=== PATIENT | female | born 1945 | race African-American/Black ===

== ENCOUNTER 2016-06-10 18:07 | Inpatient (IN) | payer BC, MEDICAID ==
[~2016-06-10] VITALS: Ht 167.6 cm; Wt 144.2 kg
[2016-06-10] VITALS (9 sets, daily range): BP systolic 106–181; BP diastolic 60–105
[~2016-06-10 18:07] MED LIST: ALLO300T PO; AZIT250T PO; FLUT16SP NS; FURO40TA4 PO; HYDR-971 PO; METO10TA81 PO; MULT1TAB52 PO; PROAIR HFA8.5 GM INH; VALS1TAB3 PO
[2016-06-10] MEDS ORDERED: HYDROmorphone 2 MG/ML VIAL IV PRN (18:45)
[2016-06-10] MEDS ORDERED: ONDANSETRON PF 4 MG/2 ML VIAL. IV ONE (18:45)
[2016-06-10] MEDS ORDERED: IV NORMAL SALINE 500ML BAG 500 ML IV ONE (18:45)
[2016-06-10] MEDS: DILTIAZEM 125 MG in IV DEXTROSE 5% 100 ML IV PRN (19:06)
--- NOTE | 2016-06-10 19:06 | PHYS DOC ---
Past Medical History Past Medical History: Asthma, COPD, Diabetes-Type II, Hypertension, Pancreatitis, UTI Additional Past Medical Histor: Gout Past Surgical History: Gastric Bypass, Hysterectomy Additional Past Surgical Histo: Gastric bypass Alcohol Use: None Drug Use: None Adult General Chief Complaint Chief Complaint: ABDOMINAL PAIN HPI HPI 71-year-old female presenting to the emergency department with abdominal pain in the epigastrium that is sharp and associated with watery diarrhea. She denies blood in her stool. It is moderate nonradiating intermittent and without alleviating factors. She has a history of COPD, hypertension, diabetes, pancreatitis and gout. Review of systems is negative for fevers chills. She does feel palpitations and was noted to be tachycardic on triage. Positive for watery stools. All other review of systems is negative unless otherwise noted in history of present illness. Review of Systems Review of Systems SEE ABOVE. Current Medications Current Medications Current Medications Medications (Trade) Dose Ordered Sig/Helen Start Time Stop Time Status Last Admin Dose Admin Diltiazem HCl 20 mg 20 mg 1X ONCE 06/10/16 19:15 06/10/16 19:16 DC 06/10/16 19:02 20 MG Diltiazem HCl/ Dextrose (Cardizem) 125 ml @ 0 mls/hr CONT PRN 06/10/16 18:45 06/10/16 19:06 5 MLS/HR Hydromorphone HCl (Dilaudid) 0.5 mg PRN Q1HR PRN 06/10/16 18:45 06/10/16 19:00 0.5 MG Ondansetron HCl (Zofran) 4 mg 1X ONCE 06/10/16 18:45 06/10/16 18:46 DC 06/10/16 18:57 4 MG Sodium Chloride (Iv Sodium Chloride 0.9% 500ml Bag) 500 ml @ 500 mls/hr 1X ONCE 06/10/16 18:45 06/10/16 19:44 DC 06/10/16 19:10 500 MLS/HR Allergies Allergies Allergies Coded Allergies Type Severity Reaction Last Updated Verified No Known Drug Allergies 02/13/14 No Physical Exam Physical Exam Constitutional: Well developed, well nourished, appears to be in mild amount of pain, non-toxic appearance. obese. HENT: Normocephalic, atraumatic, bilateral external ears normal, oropharynx moist, no oral exudates, nose normal. [] Eyes: PERRLA, EOMI, conjunctiva normal, no discharge. [] Neck: Normal range of motion, no tenderness, supple, no stridor. Cardiovascular:Heart rate regular rhythm, no murmur [] Lungs & Thorax: Bilateral breath sounds clear to auscultation [] Abdomen: Soft nontender abdomen without rebound tenderness or guarding present. Negative McBurneys point. Negative Foster sign. No ecchymosis present. Skin: Warm, dry, no erythema, no rash. [] Back: No tenderness, no CVA tenderness. Extremities: No tenderness, no cyanosis, no clubbing, ROM intact, no edema. Neurologic: Alert and oriented X 3, normal motor function, normal sensory function, no focal deficits noted. [] Psychologic: Affect normal, judgement normal, mood normal. Current Patient Data Vital Signs Vital Signs Date Time Temp Pulse Resp B/P Pulse Ox O2 Delivery O2 Flow Rate FiO2 06/10/16 19:02 145 157/88 06/10/16 19:00 20 87 Room Air 06/10/16 18:11 98.1 98.1 Lab Values Laboratory Tests Test 06/10/16 18:44 06/10/16 19:30 White Blood Count 8.6x10^3/uL (4.0-11.0) Red Blood Count 4.03x10^6/uL (3.50-5.40) Hemoglobin 11.5g/dL (12.0-15.5) L Hematocrit 35.8% (36.0-47.0) L Mean Corpuscular Volume 89fL (79-100) Mean Corpuscular Hemoglobin 29pg (25-35) Mean Corpuscular Hemoglobin Concent 32g/dL (31-37) Red Cell Distribution Width 15.6% (11.5-14.5) H Platelet Count 253x10^3/uL (140-400) Neutrophils (%) (Auto) 68% (31-73) Lymphocytes (%) (Auto) 22% (24-48) L Monocytes (%) (Auto) 9% (0-9) Eosinophils (%) (Auto) 1% (0-3) Basophils (%) (Auto) 0% (0-3) Neutrophils # (Auto) 5.9x10^3uL (1.8-7.7) Lymphocytes # (Auto) 1.9x10^3/uL (1.0-4.8) Monocytes # (Auto) 0.8x10^3/uL (0.0-1.1) Eosinophils # (Auto) 0.1x10^3/uL (0.0-0.7) Basophils # (Auto) 0.0x10^3/uL (0.0-0.2) Sodium Level 146mmol/L (136-145) H Potassium Level 4.0mmol/L (3.5-5.1) Chloride Level 107mmol/L (98-107) Carbon Dioxide Level 29mmol/L (21-32) Anion Gap 10 (6-14) Blood Urea Nitrogen 40mg/dL (7-20) H Creatinine 2.7mg/dL (0.6-1.0) H Estimated GFR (Cockcroft-Gault) 21.0 Glucose Level 114mg/dL (70-99) H Lactic Acid Level 0.9mmol/L (0.4-2.0) Calcium Level 8.8mg/dL (8.5-10.1) Total Bilirubin 0.6mg/dL (0.2-1.0) Direct Bilirubin 0.1mg/dL (0.0-0.2) Aspartate Amino Transferase (AST) 15U/L (15-37) Alanine Aminotransferase (ALT) 13U/L (14-59) L Alkaline Phosphatase 71U/L (46-116) Troponin I Quantitative < 0.017ng/mL (0.000-0.055) WM-Xoi-M-Type Natriuretic Peptide 5901pg/mL (0-124) H Total Protein 7.2g/dL (6.4-8.2) Albumin 2.4g/dL (3.4-5.0) L Lipase 408U/L (73-393) H Urine Collection Type U cath Urine Color Yellow Urine Clarity Cloudy Urine pH 5.5 Urine Specific Lawson 1.015 Urine Protein >=300mg/dL (NEG-TRACE) Urine Glucose (UA) 100mg/dL (NEG) Urine Ketones (Stick) Negativemg/dL (NEG) Urine Blood Small (NEG) Urine Nitrite Negative (NEG) Urine Bilirubin Negative (NEG) Urine Urobilinogen Dipstick 0.2mg/dL (0.2 mg/dL) Urine Leukocyte Esterase Negative (NEG) Urine RBC 0/HPF (0-2) Urine WBC 0/HPF (0-4) Urine Amorphous Sediment Present/HPF Urine Bacteria Few/HPF (0-FEW) Urine Hyaline Casts Moderate/HPF Urine Granular Casts Few/HPF Laboratory Tests 06/10/16 18:44 Laboratory Tests 06/10/16 18:44 EKG EKG [] EKG shows tachycardic rate. Rhythm possibly a flutter versus sinus tachycardia. ST segments congruent. Left axis deviation present. Interpreted by myself. Radiology/Procedures Radiology/Procedures [] Course & Med Decision Making Course & Med Decision Making Pertinent Labs and Imaging studies reviewed. (See chart for details) [] 71-year-old female with history of COPD and hypertension presenting to the emergency department today with abdominal pain. Triage vital signs showed the patient to be tachycardic. EKG concerning for possible atrial flutter. Diltiazem bolus and drip given. Blood work obtained. IV access obtained. CT abdomen and pelvis obtained. On reevaluation, the patient's pain had improved. Her heart rate had remained at 140 approximately. She had received the bolus of diltiazem and currently is going up on her diltiazem drip. CT the abdomen and pelvis showed hernia with obstruction. I placed a consult for her surgeon Dr. Villavicencio and our inspector integrated circuits Dr. Deluna. The patient was then admitted to the [facility] our hospital for further evaluation workup and care. Dragon Disclaimer Dragon Disclaimer This electronic medical record was generated, in whole or in part, using a voice recognition dictation system. Departure Departure Impression: Primary Impression: Abdominal pain Additional Impression: Atrial flutter Disposition: ADMITTED INPATIENT Condition: IMPROVED Referrals: CURTIS MARCELINO MD (PCP) Problem Qualifiers Primary Impression: Abdominal pain Abdominal location: unspecified location Qualified Code: R10.9 - Unspecified abdominal pain CURT DAVENPORT MD Jun 10, 2016 19:05
[2016-06-10] MEDS ORDERED: DILTIAZEM IV PUSH 25 MG/5 ML VIAL. IVP ONE (19:15)
[2016-06-10 19:26] LABS: BASO % 0 % (0-3); EOS % 1 % (0-3); HEMATOCRIT 35.8 % (36.0-47.0); HEMOGLOBIN 11.5 g/dL (12.0-15.5); LYMPH # 1.9 x10^3/uL (1.0-4.8); LYMPH % 22 % (24-48); MEAN CORPUSCULAR HEMOGLOBIN 29 pg (25-35); MEAN CORPUSCULAR HGB CONC 32 g/dL (31-37); MEAN CORPUSCULAR VOLUME 89 fL (79-100); MONO % 9 % (0-9); NEUT % 68 % (31-73); PLATELET COUNT 253 x10^3/uL (140-400); RED BLOOD COUNT 4.03 x10^6/uL (3.50-5.40); RED CELL DISTRIBUTION WIDTH 15.6 % (11.5-14.5); WHITE BLOOD COUNT 8.6 x10^3/uL (4.0-11.0)
[2016-06-10 19:39] LABS: CALCIUM 8.8 mg/dL (8.5-10.1); CREATININE 2.7 mg/dL (0.6-1.0)
[2016-06-10 19:42] LABS: BILIRUBIN,URINE NEGATIVE (NEG); GLUCOSE,URINE 100 mg/dL (NEG); NITRITE,URINE NEGATIVE (NEG); PH,URINE 5.5; PROTEIN,URINE >=300 mg/dL (NEG-TRACE); UROBILINOGEN,URINE 0.2 mg/dL (0.2 mg/dL)
[2016-06-10 19:45] LABS: ALBUMIN 2.4 g/dL (3.4-5.0); DIRECT BILIRUBIN 0.1 mg/dL (0.0-0.2); TOTAL BILIRUBIN 0.6 mg/dL (0.2-1.0); TOTAL PROTEIN 7.2 g/dL (6.4-8.2)
[2016-06-10] MEDS ORDERED: ONDANSETRON PF 4 MG/2 ML VIAL. IV PRN (19:45)
[2016-06-10] MEDS ORDERED: MORPHINE SULFATE 2 MG/ML DISP.SYRIN. IV PRN (19:45)
--- NOTE | 2016-06-10 19:53 | ACF ---
Admission Forms Criteria ABDOMINAL PAIN Clinical Indications for Admission to Inpatient Care (Place 'X' for any and all applicable criteria): Admission is indicated for ANY ONE of the following(1)(2)(3)(4)(5): [X]I. Inpatient admission required rather than observation care (Also use Abdominal Pain: Observation Care, as appropriate) because of ANY ONE of the following: [X]a) Severe pain requiring acute inpatient management [ ]b) Identification of etiology/finding that requires inpatient care (eg, aortic dissection, free air) [ ]c) Absent bowel sounds with complete ileus(6) [ ]d) Suspected toxic megacolon [ ]e) Severe electrolyte abnormalities requiring inpatient care [ ]f) High fever or infection requiring inpatient admission as indicated by ANY ONE of following(7)(8): [ ] i) Appropriate outpatient or observational care antimicrobial treatment unavailable, not effective, or not feasible [ ] ii) Documented bacteremia [ ] iii) Temperature > 104.9 degrees F (oral) [ ] iv) T >103.1 F (oral) or < 96.8 F(rectal) that does not respond to all emergency treatment measures [ ]g) Signs of intestinal obstruction [B] [ ]h) Hemodynamic instability [ ]i) IV fluid to replace significant ongoing losses (greater than 3 L/m2 per day) (12)(13) [ ]j) Percutaneous or open drainage (eg, abscess, biliary tract ) procedures [ ]k) Parenteral nutrition regimen that must be implemented on inpatient basis [ ]l) Other condition,treatment or monitoring requiring inpatient admission. [ ]II. Peritoneal signs present [ ]III. Surgery needed that cannot be performed on an ambulatory basis. [ ]IV. Evaluation requires patient to not eat or drink for extended period ( eg, more than 24 hours). [ ]V. Contraindications and/or Inappropriate clinical situations for Observational Care in patients with abdominal pain, when ANY ONE of the following is required: [ ]a) Thorough evaluation is required to prevent catastrophic events due to delays in diagnosing (e.g.Mesenteric ischemia) 1,3 [ ]b) Patient with severe pathology or with chronic symptoms unlikely to improve in the ED stay (3) [ ]. General contraindications and/or Inappropriate clinical situations for Observational Care in patients with abdominal pain, when ANY ONE of the following is required: [ ]a) Prediction of prolongation of LOS based on ANY ONE of the following may be considered as a contraindication for observational care 2, 3, 4, 5, 6, 7, 8, 9, 10, 11 [ ]i) Age > 65 yrs. [ ]ii) Patient arriving by ambulance [ ]iii) Patient with high acuity [ ]iv) Patient requiring vital sign monitoring [ ]v) Patient on IV medication [ ]b) Systolic blood pressures 180mmHg 3,12 [ ]c) Patient with altered mental status including delirium and other alteration of consciousness, (3) [ ]d) Patient whose discharge disposition will be to a fdc home or rehabilitation home should not be managed in Emergency Department Observation Unit. CMS rule requires 3 days hospital stay before such placement.3,13 [ ]e) Patient with failure to thrive due to broad array of etiologies 3,16,17 [ ]f) Inability to ambulate 3,14 Extended stay beyond goal length of stay may be needed for(2)(3): [ ]a) Persistent abdominal pain with suspected intra-abdominal process [ ]b) Diagnosed condition requiring continued stay (e.g., pancreatitis, complicated diverticulitis) [ ]c) Surgery (e.g., colectomy) The original [facility] content created by [employer] has been revised. The portions of the content which have been revised are identified through the use of italic text or in bold, and [facility] has neither reviewed nor approved the modified material.All other unmodified content is copyright [employer]. Please see references footnoted in the original [facility] edition 2016 Admission Criteria Met?: Yes ALVARO GAONA Jun 10, 2016 19:53
[2016-06-10 20:01] LABS: BACTERIA,URINE FEW /HPF (0-FEW); RBC,URINE 0 /HPF (0-2); WBC,URINE 0 /HPF (0-4)
--- NOTE | 2016-06-10 20:34 | RAD ---
PROCEDURE Abdomen and pelvis CT without intravenous contrast HISTORY Pain, nausea, vomiting and diarrhea. TECHNIQUE Computed tomographic images the abdomen and pelvis were obtained without contrast. One or more of the following individualized dose reduction techniques were utilized for this examination: 1. Automated exposure control; 2. Adjustment of the mA and/or kV according to patient size; 3. Use of iterative reconstruction technique. COMPARISON 08/29/2015 FINDINGS Evaluation of the lower thorax demonstrates basilar atelectasis. There is cardiomegaly. No focal hepatic lesion is seen. The gallbladder, pancreas, spleen and adrenal glands are unremarkable. There are suspected subcentimeter cysts within the right kidney. There is no obstructive he obstructive uropathy. There is diastasis of the ventral abdominal wall musculature with a large hernia containing fat and loops of small bowel and a segment of transverse colon. There is stranding within the herniated fat which may be due to a component of incarceration. The herniated small bowel loops are also slightly dilated, suggesting a component of mechanical obstruction. There are decompressed loops of bowel distal to the hernia. There are findings consistent with partial bowel resection, with a surgical anastomosis within the herniated loops of bowel. The hernia sac measures 24 cm and the ventral abdominal wall defect measures 12.5 cm. There is colonic diverticulosis without diverticulitis. The bladder is unremarkable. No pathologically enlarged lymph node is seen. There are degenerative changes throughout the spine. There is grade 1 anterolisthesis of L4 on L5. There is soft tissue edema within the inferior ventral abdominal wall pannus. IMPRESSION 1. Large ventral abdominal wall hernia containing fat and multiple loops of small bowel and a segment of colon. The herniated loops of small bowel are distended, suggesting a component of mechanical obstruction. This is there is similar compared to the prior study. 2. Colonic diverticulosis. 3. Suspected small renal cysts, difficult to characterize in the absence of contrast. Electronically signed by: Fanny Bailey (Jun 10, 2016 20:32:09)
[2016-06-10] MEDS ORDERED: IV NORMAL SALINE 1000ML BAG 1,000 ML IV ONE (22:00)
--- NOTE | 2016-06-10 23:20 | RAD ---
KUB Indication: NG tube placement. Time of exam 11:06 p.m. A single view of the abdomen shows an NG tube passing below the diaphragm. The tip is directed towards the left in the gastric fundus. Impression: NG tube placement, as described. Electronically signed by: Mauricio Gross MD (Jun 10, 2016 23:19:30)
[2016-06-11] VITALS (21 sets, daily range): BP systolic 81–132; BP diastolic 38–82
--- NOTE | 2016-06-11 06:25 | EKG ---
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
--- NOTE | 2016-06-11 07:55 | RAD ---
Indication epigastric pain. A single view of the chest was obtained and is compared to an exam 09/01/2015. There is mild enlargement of the cardiac silhouette. There is no gross congestive heart failure. A focal infiltrate is not seen. Significant pleural fluid is not present and there is no pneumothorax. IMPRESSION: Mild enlargement of the cardiac silhouette. No focal process seen
--- NOTE | 2016-06-11 08:21 | PDOC ---
Provider Note Provider Note See admission H&P dictation #[id number] Impression: 1. Small bowel obstruction with possible incarceration with a ventral hernia: 2. A. fib/flutter with rapid ventricular response, now converted: 3. Diabetes mellitus type 2, diet controlled: 4. Hypertension: 5. Acute renal failure, vasomotor etiology, with history of chronic kidney disease stage III/IV with baseline CRE 1.9: 6. History of COPD: 7. Chronic lymphedema in the bilateral lower extremities: 8. Morbid obesity: 9. History of uterine cancer status post hysterectomy: 10. History of partial colon/small bowel? resection: 11. Mildly elevated lipase with a history of pancreatitis: CURTIS MARCELINO MD Jun 11, 2016 08:21
[2016-06-11] MEDS ORDERED: DEXTROSE 50% 25 GM / 50ML DISP.SYRIN. IV PRN (08:30)
[2016-06-11] MEDS ORDERED: ALBUTEROL SULFATE 2.5 MG/3 ML NEBU. NEB PRN (08:30)
[2016-06-11 08:31] LABS: BASO % 0 % (0-3); EOS % 2 % (0-3); HEMATOCRIT 29.8 % (36.0-47.0); HEMOGLOBIN 9.5 g/dL (12.0-15.5); LYMPH # 2.2 x10^3/uL (1.0-4.8); LYMPH % 25 % (24-48); MEAN CORPUSCULAR HEMOGLOBIN 29 pg (25-35); MEAN CORPUSCULAR HGB CONC 32 g/dL (31-37); MEAN CORPUSCULAR VOLUME 90 fL (79-100); MONO % 11 % (0-9); NEUT % 62 % (31-73); PLATELET COUNT 203 x10^3/uL (140-400); RED CELL DISTRIBUTION WIDTH 15.8 % (11.5-14.5); WHITE BLOOD COUNT 8.9 x10^3/uL (4.0-11.0)
--- NOTE | 2016-06-11 08:33 | RAD ---
Indication abdominal pain and distention. A single view of the chest as well as flat and upright films of the abdomen were obtained. Note is made of a CT examination yesterday. The heart and pulmonary vessels are unchanged relative to yesterday's study. Acute parenchymal infiltrate is not seen. Significant pleural fluid is not seen and there is no pneumothorax. A nasogastric tube has its tip in the fundus of the stomach. There is no gross free air. Gas is seen in a few loops of bowel but the abdomen is largely gasless. IMPRESSION: No acute finding in the chest. Nasogastric tube with its tip in the fundus of the stomach. The abdomen appears largely gasless
[2016-06-11 08:51] LABS: CALCIUM 8.2 mg/dL (8.5-10.1); CREATININE 3.1 mg/dL (0.6-1.0); GFR 17.9; POTASSIUM 4.1 mmol/L (3.5-5.1)
[2016-06-11] MEDS ORDERED: IV NORMAL SALINE 1000ML BAG 1,000 ML IV SCH (09:00)
[2016-06-11] MEDS: FLUTICASONE 50MCG/NASAL SPRAY 16GM BOTTLE. NS SCH (09:00)
--- NOTE | 2016-06-11 09:48 | PDOC2 ---
CHRISTOPHER SAUER HEALTH CARE ADMINISTRATOR 06/11/16 0948: CARDIAC CONSULT DATE OF CONSULT Date of Consult DATE: 06/11/16 TIME: 09:24 REASON FOR CONSULT Reason for Consult: atrial flutter with RVR REFERRING PHYSICIAN Referring Physician: Dr. Koko Hadley SOURCE Source: Chart review, Patient HISTORY OF PRESENT ILLNESS HISTORY OF PRESENT ILLNESS 71 year old female admitted through the ER with abdominal pain and found to have an obstruction with incarcerated ventral hernia on CT scan Also had c/o palpitations and EKG demonstrates atrial flutter with RVR. She was placed on a diltiazem gtt for rate control and subsequently converted to NSR ~ 0500 today. Serum K WNL. EKG as noted without acute changes and troponin level not consistent with AMI. No previous history of dysrhythmias. Reason for Visit: atrial flutter PAST MEDICAL HISTORY Cardiovascular: HTN Pulmonary: Asthma, COPD CENTRAL NERVOUS SYSTEM: Other (none) GI: Other (ventral hernia; pancreatitis) Heme/Onc: No pertinent hx Hepatobiliary: No pertinent hx Psych: No pertinent hx Musculoskeletal: Osteoarthritis Rheumatologic: Gout Infectious disease: No pertinent hx ENT: No pertinent hx Renal/: No pertinent hx, UTI Endocrine: Diabetes Dermatology: No pertinent hx PAST SURGICAL HISTORY Past Surgical History: Hysterectomy, Other (gastric bypass) FAMILY HISTORY Family History: Heart Disease SOCIAL HISTORY Smoke: No ALCOHOL: none Drugs: None CURRENT MEDICATIONS CURRENT MEDICATIONS Current Medications Medications (Trade) Dose Ordered Sig/Helen Route PRN Reason Start Time Stop Time Status Last Admin Dose Admin Sodium Chloride (Iv Sodium Chloride 0.9% 500ml Bag) 500 ml @ 500 mls/hr 1X ONCE IV 06/10/16 18:45 06/10/16 19:44 DC 06/10/16 19:10 Hydromorphone HCl (Dilaudid) 0.5 mg PRN Q1HR PRN IV SEVERE PAIN 06/10/16 18:45 06/10/16 19:00 Ondansetron HCl (Zofran) 4 mg 1X ONCE IV 06/10/16 18:45 06/10/16 18:46 DC 06/10/16 18:57 Diltiazem HCl 20 mg 20 mg 1X ONCE IVP 06/10/16 19:15 06/10/16 19:16 DC 06/10/16 19:02 Diltiazem HCl 125 mg/Dextrose 125 ml @ 0 mls/hr CONT PRN IV SEE I/O RECORD 06/10/16 18:45 06/10/16 19:06 Sodium Chloride 1,000 ml @ 125 mls/hr 1X ONCE IV 06/10/16 22:00 06/11/16 05:59 DC 06/10/16 22:21 Sodium Chloride (Iv Sodium Chloride 0.9% 1000ml Bag) 1,000 ml @ 75 mls/hr [id number] IV 06/11/16 09:00 06/11/16 08:40 Albuterol Sulfate (Ventolin Neb Soln) 2.5 mg PRN Q4HRS PRN NEB SHORTNESS OF BREATH 06/11/16 08:30 06/11/16 08:45 ALLERGIES ALLERGIES: Coded Allergies: No Known Drug Allergies (Unverified , 02/13/14) ROS General: YES: Chills PSYCHOLOGICAL ROS: No: Anxiety, Behavioral Disorder, Concentration difficultie , Decreased libido, Depression, Disorientation, Hallucinations, Hostility, Irritablity, Memory difficulties, Mood Swings, Obsessive thoughts, Other, Physical abuse, Sexual abuse, Sleep disturbances, Suicidal ideation Eyes: No Blurry vision, No Decreased vision, No Double vision, No Dry eyes, No Excessive tearing, No Eye Pain, No Itchy Eyes, No Loss of vision, No Other, No Photophobia, No Scotomata, No Uses contacts, No Uses glasses HEENT: No: Epistaxis, Heacaches, Hearing change, Nasal congestion, Nasal discharge, Oral lesions, Other, Sinus pain, Sneezing, Snoring, Sore Throat, Tinnitus, Vertigo, Visual Changes, Vocal changes ALLERGY AND IMMUNOLOGY: No: Hives, Insect Bite Sensitivity, Itchy/Watery Eyes, Nasal Congestion, Other, Post Nasal Drip, Seasonal Allergies Hematological and Lymphatic: No: Bleeding Problems, Blood Clots, Blood Transfusions, Brusing, Night Sweats, Other, Pallor, Swollen Lymph Nodes ENDOCRINE: No: Breast Changes, Galactorrhea, Hair Pattern Changes, Hot Flashes , Malaise/lethargy, Mood Swings, Other, Palpitations, Polydipsia/polyuria, Skin Changes, Temperature Intolerance, Unexpected Weight Changes Respiratory: YES: Shortness of breath Cardiovascular: yes Edema, yes Palpitations Gastrointestinal: Yes Abdominal Pain Genitourinary: No Discharge, No Dysuria, No Flank Pain, No Frequency, No Hematuria, No Incontinence, No Other, No Pain, No Retention, No Urgency Musculoskeletal: Yes Joint Stiffness Neurological: No Behavorial Changes, No Bowel/Bladder ControlChng, No Confusion , No Dizziness, No Gait Disturbance, No Headaches, No Impaired Coord/balance, No Memory Loss, No Numbness/Tingling, No Other, No Seizures, No Speech Problems , No Tremors, No Visual Changes, No Weakness Skin: No Acne, No Dry Skin, No Eczema, No Hair Changes, No Lumps, No Mole Changes, No Mottling, No Nail Changes, No Other, No Pruritus, No Rash, No Skin Lesion Changes PHYSICAL EXAM General: Alert, Oriented X3, Cooperative, No acute distress HEENT: Atraumatic, PERRLA Lungs: Clear to auscultation, Normal air movement Heart: Regular rate, Normal S1, No murmurs, Other (no carotid bruits) Abdomen: Soft, Other (NGT) Extremities: No edema, Normal pulses Skin: No rashes Neuro: Normal speech Psych/Mental Status: Mental status NL, Mood NL MUSCULOSKELETAL: Osteoarthritic changes both hands VITALS VITALS Vital Signs Date Time Temp Pulse Resp B/P Pulse Ox O2 Delivery O2 Flow Rate FiO2 06/11/16 08:45 95 Nasal Cannula 2.0 06/11/16 07:00 97.5 84 18 129/68 97.5 LABS Lab: Laboratory Tests Test 06/10/16 18:44 06/10/16 19:30 06/11/16 00:58 06/11/16 06:45 White Blood Count 8.6x10^3/uL (4.0-11.0) Red Blood Count 4.03x10^6/uL (3.50-5.40) Hemoglobin 11.5g/dL (12.0-15.5) Hematocrit 35.8% (36.0-47.0) Mean Corpuscular Volume 89fL (79-100) Mean Corpuscular Hemoglobin 29pg (25-35) Mean Corpuscular Hemoglobin Concent 32g/dL (31-37) Red Cell Distribution Width 15.6% (11.5-14.5) Platelet Count 253x10^3/uL (140-400) Neutrophils (%) (Auto) 68% (31-73) Lymphocytes (%) (Auto) 22% (24-48) Monocytes (%) (Auto) 9% (0-9) Eosinophils (%) (Auto) 1% (0-3) Basophils (%) (Auto) 0% (0-3) Neutrophils # (Auto) 5.9x10^3uL (1.8-7.7) Lymphocytes # (Auto) 1.9x10^3/uL (1.0-4.8) Monocytes # (Auto) 0.8x10^3/uL (0.0-1.1) Eosinophils # (Auto) 0.1x10^3/uL (0.0-0.7) Basophils # (Auto) 0.0x10^3/uL (0.0-0.2) Sodium Level 146mmol/L (136-145) Potassium Level 4.0mmol/L (3.5-5.1) Chloride Level 107mmol/L (98-107) Carbon Dioxide Level 29mmol/L (21-32) Anion Gap 10 (6-14) Blood Urea Nitrogen 40mg/dL (7-20) Creatinine 2.7mg/dL (0.6-1.0) Estimated GFR (Cockcroft-Gault) 21.0 Glucose Level 114mg/dL (70-99) Lactic Acid Level 0.9mmol/L (0.4-2.0) Calcium Level 8.8mg/dL (8.5-10.1) Total Bilirubin 0.6mg/dL (0.2-1.0) Direct Bilirubin 0.1mg/dL (0.0-0.2) Aspartate Amino Transf (AST/SGOT) 15U/L (15-37) Alanine Aminotransferase (ALT/SGPT) 13U/L (14-59) Alkaline Phosphatase 71U/L (46-116) Troponin I Quantitative < 0.017ng/mL (0.000-0.055) 0.023ng/mL (0.000-0.055) ED-Mhg-Q-Type Natriuretic Peptide 5901pg/mL (0-124) Total Protein 7.2g/dL (6.4-8.2) Albumin 2.4g/dL (3.4-5.0) Lipase 408U/L (73-393) Urine Collection Type U cath Urine Color Yellow Urine Clarity Cloudy Urine pH 5.5 Urine Specific [place] 1.015 Urine Protein >=300mg/dL (NEG-TRACE) Urine Glucose (UA) 100mg/dL (NEG) Urine Ketones (Stick) Negativemg/dL (NEG) Urine Blood Small (NEG) Urine Nitrite Negative (NEG) Urine Bilirubin Negative (NEG) Urine Urobilinogen Dipstick 0.2mg/dL (0.2 mg/dL) Urine Leukocyte Esterase Negative (NEG) Urine RBC 0/HPF (0-2) Urine WBC 0/HPF (0-4) Urine Amorphous Sediment Present/HPF Urine Bacteria Few/HPF (0-FEW) Urine Hyaline Casts Moderate/HPF Urine Granular Casts Few/HPF Glucose (Fingerstick) 78mg/dL (70-99) Test 06/11/16 08:00 White Blood Count 8.9x10^3/uL (4.0-11.0) Red Blood Count 3.30x10^6/uL (3.50-5.40) Hemoglobin 9.5g/dL (12.0-15.5) Hematocrit 29.8% (36.0-47.0) Mean Corpuscular Volume 90fL (79-100) Mean Corpuscular Hemoglobin 29pg (25-35) Mean Corpuscular Hemoglobin Concent 32g/dL (31-37) Red Cell Distribution Width 15.8% (11.5-14.5) Platelet Count 203x10^3/uL (140-400) Neutrophils (%) (Auto) 62% (31-73) Lymphocytes (%) (Auto) 25% (24-48) Monocytes (%) (Auto) 11% (0-9) Eosinophils (%) (Auto) 2% (0-3) Basophils (%) (Auto) 0% (0-3) Neutrophils # (Auto) 5.5x10^3uL (1.8-7.7) Lymphocytes # (Auto) 2.2x10^3/uL (1.0-4.8) Monocytes # (Auto) 0.9x10^3/uL (0.0-1.1) Eosinophils # (Auto) 0.2x10^3/uL (0.0-0.7) Basophils # (Auto) 0.0x10^3/uL (0.0-0.2) Sodium Level 147mmol/L (136-145) Potassium Level 4.1mmol/L (3.5-5.1) Chloride Level 110mmol/L (98-107) Carbon Dioxide Level 30mmol/L (21-32) Anion Gap 7 (6-14) Blood Urea Nitrogen 42mg/dL (7-20) Creatinine 3.1mg/dL (0.6-1.0) Estimated GFR (Cockcroft-Gault) 17.9 Glucose Level 90mg/dL (70-99) Calcium Level 8.2mg/dL (8.5-10.1) Troponin I Quantitative 0.026ng/mL (0.000-0.055) Lipase 100U/L (73-393) IMAGES IMAGES CXR: A single view of the chest was obtained and is compared to an exam 09/01/2015. There is mild enlargement of the cardiac silhouette. There is no gross congestive heart failure. A focal infiltrate is not seen. Significant pleural fluid is not present and there is no pneumothorax. IMPRESSION: Mild enlargement of the cardiac silhouette. No focal process seen EKG EKG atrial flutter, RVR; no acute changes ASSESSMENT/PLAN ASSESSMENT/PLAN 1. atrial flutter with RVR, presumed new onset rate controlled with IV diltiazem and converted to SR K WNL; check Mg and TSH echo to evaluate for valvular heart disease continue dilitazem gtt until pt tolerating p.o. hold OAC until decision re: need for surgery 2. ventral hernia with possible incarceration per surgery 3. HTN resume home meds when oral tolerated 4. obesity Problems: HOLLI MONROY MD 06/11/16 1750: CARDIAC CONSULT ALLERGIES ALLERGIES: Coded Allergies: No Known Drug Allergies (Unverified , 02/13/14) ASSESSMENT/PLAN ASSESSMENT/PLAN Pt. seen and examined. 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 71 y.o F presenting with GI issues. Also had transient afib with RVR Now in SR. Normal cardiac exam. labs/meds reviewed. Supportive care. Continue dilt gtt. No anticoagulation for now, unless she has recurrent afib. No significant valvular disease with normal LV function. Problems: CHRISTOPHER SAUER APRN Jun 11, 2016 09:48 HOLLI MONROY MD Jun 11, 2016 17:50
--- NOTE | 2016-06-11 09:54 | PDOC ---
SURGICAL PROGRESS NOTE Subjective Patient doing well without any abd pain and has had no pain meds for over 12 hours. Abd series this am negative and CT yesterday showed large ventral hernia but no real bowel obstruction. Lab OK Ng very uncomfortable. Will remove and keep NPO. Plan to start liquids in am and she understands that repair of hernia should be done. Would like to get bowel prep going etc. May not repair during this Hosp visit. afib converted. Will se what med team feels. Abd soft and no-tender as she has no pain or discomfort.. Vital Signs Vital Signs Date Time Temp Pulse Resp B/P Pulse Ox O2 Delivery O2 Flow Rate FiO2 06/11/16 08:45 95 Nasal Cannula 2.0 06/11/16 07:00 97.5 84 18 129/68 97.5 I&O Intake and Output 06/11/16 07:00 Intake Total 1542.59 ml Output Total 100 ml Balance 1442.59 ml Intake Oral 0 ml IV Total 1542.59 ml Output Urine Total 100 ml Labs Laboratory Tests Test 06/10/16 18:44 06/10/16 19:30 06/11/16 00:58 06/11/16 06:45 White Blood Count 8.6x10^3/uL (4.0-11.0) Red Blood Count 4.03x10^6/uL (3.50-5.40) Hemoglobin 11.5g/dL (12.0-15.5) Hematocrit 35.8% (36.0-47.0) Mean Corpuscular Volume 89fL (79-100) Mean Corpuscular Hemoglobin 29pg (25-35) Mean Corpuscular Hemoglobin Concent 32g/dL (31-37) Red Cell Distribution Width 15.6% (11.5-14.5) Platelet Count 253x10^3/uL (140-400) Neutrophils (%) (Auto) 68% (31-73) Lymphocytes (%) (Auto) 22% (24-48) Monocytes (%) (Auto) 9% (0-9) Eosinophils (%) (Auto) 1% (0-3) Basophils (%) (Auto) 0% (0-3) Neutrophils # (Auto) 5.9x10^3uL (1.8-7.7) Lymphocytes # (Auto) 1.9x10^3/uL (1.0-4.8) Monocytes # (Auto) 0.8x10^3/uL (0.0-1.1) Eosinophils # (Auto) 0.1x10^3/uL (0.0-0.7) Basophils # (Auto) 0.0x10^3/uL (0.0-0.2) Sodium Level 146mmol/L (136-145) Potassium Level 4.0mmol/L (3.5-5.1) Chloride Level 107mmol/L (98-107) Carbon Dioxide Level 29mmol/L (21-32) Anion Gap 10 (6-14) Blood Urea Nitrogen 40mg/dL (7-20) Creatinine 2.7mg/dL (0.6-1.0) Estimated GFR (Cockcroft-Gault) 21.0 Glucose Level 114mg/dL (70-99) Lactic Acid Level 0.9mmol/L (0.4-2.0) Calcium Level 8.8mg/dL (8.5-10.1) Total Bilirubin 0.6mg/dL (0.2-1.0) Direct Bilirubin 0.1mg/dL (0.0-0.2) Aspartate Amino Transf (AST/SGOT) 15U/L (15-37) Alanine Aminotransferase (ALT/SGPT) 13U/L (14-59) Alkaline Phosphatase 71U/L (46-116) Troponin I Quantitative < 0.017ng/mL (0.000-0.055) 0.023ng/mL (0.000-0.055) SJ-Nxe-M-Type Natriuretic Peptide 5901pg/mL (0-124) Total Protein 7.2g/dL (6.4-8.2) Albumin 2.4g/dL (3.4-5.0) Lipase 408U/L (73-393) Urine Collection Type U cath Urine Color Yellow Urine Clarity Cloudy Urine pH 5.5 Urine Specific [place] 1.015 Urine Protein >=300mg/dL (NEG-TRACE) Urine Glucose (UA) 100mg/dL (NEG) Urine Ketones (Stick) Negativemg/dL (NEG) Urine Blood Small (NEG) Urine Nitrite Negative (NEG) Urine Bilirubin Negative (NEG) Urine Urobilinogen Dipstick 0.2mg/dL (0.2 mg/dL) Urine Leukocyte Esterase Negative (NEG) Urine RBC 0/HPF (0-2) Urine WBC 0/HPF (0-4) Urine Amorphous Sediment Present/HPF Urine Bacteria Few/HPF (0-FEW) Urine Hyaline Casts Moderate/HPF Urine Granular Casts Few/HPF Glucose (Fingerstick) 78mg/dL (70-99) Test 06/11/16 08:00 White Blood Count 8.9x10^3/uL (4.0-11.0) Red Blood Count 3.30x10^6/uL (3.50-5.40) Hemoglobin 9.5g/dL (12.0-15.5) Hematocrit 29.8% (36.0-47.0) Mean Corpuscular Volume 90fL (79-100) Mean Corpuscular Hemoglobin 29pg (25-35) Mean Corpuscular Hemoglobin Concent 32g/dL (31-37) Red Cell Distribution Width 15.8% (11.5-14.5) Platelet Count 203x10^3/uL (140-400) Neutrophils (%) (Auto) 62% (31-73) Lymphocytes (%) (Auto) 25% (24-48) Monocytes (%) (Auto) 11% (0-9) Eosinophils (%) (Auto) 2% (0-3) Basophils (%) (Auto) 0% (0-3) Neutrophils # (Auto) 5.5x10^3uL (1.8-7.7) Lymphocytes # (Auto) 2.2x10^3/uL (1.0-4.8) Monocytes # (Auto) 0.9x10^3/uL (0.0-1.1) Eosinophils # (Auto) 0.2x10^3/uL (0.0-0.7) Basophils # (Auto) 0.0x10^3/uL (0.0-0.2) Sodium Level 147mmol/L (136-145) Potassium Level 4.1mmol/L (3.5-5.1) Chloride Level 110mmol/L (98-107) Carbon Dioxide Level 30mmol/L (21-32) Anion Gap 7 (6-14) Blood Urea Nitrogen 42mg/dL (7-20) Creatinine 3.1mg/dL (0.6-1.0) Estimated GFR (Cockcroft-Gault) 17.9 Glucose Level 90mg/dL (70-99) Calcium Level 8.2mg/dL (8.5-10.1) Magnesium Level 1.5mg/dL (1.8-2.4) Troponin I Quantitative 0.026ng/mL (0.000-0.055) Lipase 100U/L (73-393) Laboratory Tests Test 06/10/16 18:44 06/10/16 19:30 06/11/16 00:58 06/11/16 06:45 White Blood Count 8.6x10^3/uL (4.0-11.0) Red Blood Count 4.03x10^6/uL (3.50-5.40) Hemoglobin 11.5g/dL (12.0-15.5) Hematocrit 35.8% (36.0-47.0) Mean Corpuscular Volume 89fL (79-100) Mean Corpuscular Hemoglobin 29pg (25-35) Mean Corpuscular Hemoglobin Concent 32g/dL (31-37) Red Cell Distribution Width 15.6% (11.5-14.5) Platelet Count 253x10^3/uL (140-400) Neutrophils (%) (Auto) 68% (31-73) Lymphocytes (%) (Auto) 22% (24-48) Monocytes (%) (Auto) 9% (0-9) Eosinophils (%) (Auto) 1% (0-3) Basophils (%) (Auto) 0% (0-3) Neutrophils # (Auto) 5.9x10^3uL (1.8-7.7) Lymphocytes # (Auto) 1.9x10^3/uL (1.0-4.8) Monocytes # (Auto) 0.8x10^3/uL (0.0-1.1) Eosinophils # (Auto) 0.1x10^3/uL (0.0-0.7) Basophils # (Auto) 0.0x10^3/uL (0.0-0.2) Sodium Level 146mmol/L (136-145) Potassium Level 4.0mmol/L (3.5-5.1) Chloride Level 107mmol/L (98-107) Carbon Dioxide Level 29mmol/L (21-32) Anion Gap 10 (6-14) Blood Urea Nitrogen 40mg/dL (7-20) Creatinine 2.7mg/dL (0.6-1.0) Estimated GFR (Cockcroft-Gault) 21.0 Glucose Level 114mg/dL (70-99) Lactic Acid Level 0.9mmol/L (0.4-2.0) Calcium Level 8.8mg/dL (8.5-10.1) Total Bilirubin 0.6mg/dL (0.2-1.0) Direct Bilirubin 0.1mg/dL (0.0-0.2) Aspartate Amino Transf (AST/SGOT) 15U/L (15-37) Alanine Aminotransferase (ALT/SGPT) 13U/L (14-59) Alkaline Phosphatase 71U/L (46-116) Troponin I Quantitative < 0.017ng/mL (0.000-0.055) 0.023ng/mL (0.000-0.055) LI-Rnc-B-Type Natriuretic Peptide 5901pg/mL (0-124) Total Protein 7.2g/dL (6.4-8.2) Albumin 2.4g/dL (3.4-5.0) Lipase 408U/L (73-393) Urine Collection Type U cath Urine Color Yellow Urine Clarity Cloudy Urine pH 5.5 Urine Specific [place] 1.015 Urine Protein >=300mg/dL (NEG-TRACE) Urine Glucose (UA) 100mg/dL (NEG) Urine Ketones (Stick) Negativemg/dL (NEG) Urine Blood Small (NEG) Urine Nitrite Negative (NEG) Urine Bilirubin Negative (NEG) Urine Urobilinogen Dipstick 0.2mg/dL (0.2 mg/dL) Urine Leukocyte Esterase Negative (NEG) Urine RBC 0/HPF (0-2) Urine WBC 0/HPF (0-4) Urine Amorphous Sediment Present/HPF Urine Bacteria Few/HPF (0-FEW) Urine Hyaline Casts Moderate/HPF Urine Granular Casts Few/HPF Glucose (Fingerstick) 78mg/dL (70-99) Test 06/11/16 08:00 White Blood Count 8.9x10^3/uL (4.0-11.0) Red Blood Count 3.30x10^6/uL (3.50-5.40) Hemoglobin 9.5g/dL (12.0-15.5) Hematocrit 29.8% (36.0-47.0) Mean Corpuscular Volume 90fL (79-100) Mean Corpuscular Hemoglobin 29pg (25-35) Mean Corpuscular Hemoglobin Concent 32g/dL (31-37) Red Cell Distribution Width 15.8% (11.5-14.5) Platelet Count 203x10^3/uL (140-400) Neutrophils (%) (Auto) 62% (31-73) Lymphocytes (%) (Auto) 25% (24-48) Monocytes (%) (Auto) 11% (0-9) Eosinophils (%) (Auto) 2% (0-3) Basophils (%) (Auto) 0% (0-3) Neutrophils # (Auto) 5.5x10^3uL (1.8-7.7) Lymphocytes # (Auto) 2.2x10^3/uL (1.0-4.8) Monocytes # (Auto) 0.9x10^3/uL (0.0-1.1) Eosinophils # (Auto) 0.2x10^3/uL (0.0-0.7) Basophils # (Auto) 0.0x10^3/uL (0.0-0.2) Sodium Level 147mmol/L (136-145) Potassium Level 4.1mmol/L (3.5-5.1) Chloride Level 110mmol/L (98-107) Carbon Dioxide Level 30mmol/L (21-32) Anion Gap 7 (6-14) Blood Urea Nitrogen 42mg/dL (7-20) Creatinine 3.1mg/dL (0.6-1.0) Estimated GFR (Cockcroft-Gault) 17.9 Glucose Level 90mg/dL (70-99) Calcium Level 8.2mg/dL (8.5-10.1) Magnesium Level 1.5mg/dL (1.8-2.4) Troponin I Quantitative 0.026ng/mL (0.000-0.055) Lipase 100U/L (73-393) Problem List Problems Medical Problems: (1) Abdominal pain Status: Acute (2) Atrial flutter Status: Acute Problems: PRATEEK JOLLY MD Jun 11, 2016 09:54
[2016-06-11] MEDS ORDERED: MAGNESIUM SULFATE 1GM 100 ML IV ONE (10:30)
[2016-06-11] MEDS ORDERED: MAGNESIUM SULFATE 2GM 50 ML IV ONE (11:30)
[2016-06-11] MEDS: INSULIN ASPART 300 UNITS/3 ML INSULN.PEN SQ SCH ×2 (12:00→17:00)
[2016-06-11] MEDS: DILTIAZEM 125 MG in IV DEXTROSE 5% 100 ML IV PRN (13:05)
[2016-06-11] MEDS ORDERED: IV 1/2 NORMAL SALINE 1,000 ML IV ONE (13:45)
--- NOTE | 2016-06-11 15:51 | CARD ---
APPROVED REPORT EXAM: Two-dimensional and M-mode echocardiogram with Doppler and color Doppler. Other Information Quality : GoodHR: 95bpm Rhythm : NSR INDICATION Atrial Fibrillation RISK FACTORS Obesity 2D DIMENSIONS RVDd3.3 (2.9-3.5cm)Left Atrium(2D)4.2 (1.6-4.0cm) IVSd1.0 (0.7-1.1cm)Aortic Root(2D)2.9 (2.0-3.7cm) LVDd4.9 (3.9-5.9cm)LVOT Diameter2.2 (1.8-2.4cm) PWd0.8 (0.7-1.1cm)LVDs3.4 (2.5-4.0cm) FS (%) 30.1 %SV64.9 ml LVEF(%)57.2 (>50%) Aortic Valve AoV Peak Miguel.169.8cm/sAoV VTI31.2cm AO Peak GR.11.5mmHgLVOT Peak Miguel.125.4cm/s AO Mean GR.6mmHgAVA (VMAX)2.89cm2 Mitral Valve MV E Pyuqsxim356.4cm/sMV E Peak Gr.5mmHg MV DECEL [id number] A Lvwurlfx55.7cm/s MV E Mean Gr.2mmHgE/A Ratio1.5 MV A Aoecfnru191yg Pulmonary Valve PV Peak Sznfwvha675.4cm/s Tricuspid Valve TR P. Zdharxka533qk/sTR Peak Gr.33mmHg Pulmonary Vein S1 Rfrrxvek95.9cm/sD2 Acrdvwfp25.4cm/s LEFT VENTRICLE The left ventricle is normal size. There is normal left ventricular wall thickness. The left ventricu lar systolic function is normal. The Ejection Fraction is 60-65%. There is normal LV segmental wall m otion. RIGHT VENTRICLE The right ventricle is normal size. There is normal right ventricular wall thickness. The right ventr icular systolic function is normal. ATRIA The left atrium is mildly dilated. The right atrium size is normal. The interatrial septum is intact with no evidence for an atrial septal defect or patent foramen ovale as noted on 2-D or Doppler imagi ng. AORTIC VALVE The aortic valve is mildly sclerotic. The aortic valve is trileaflet. Doppler and Color Flow revealed no significant aortic regurgitation. There is no significant aortic valvular stenosis. MITRAL VALVE Mitral annular calcification is mild. The mitral valve leaflets are thickened. There is no evidence o f mitral valve prolapse. There is no mitral valve stenosis. Doppler and Color Flow revealed no mitral valve regurgitation noted. TRICUSPID VALVE Doppler and Color Flow revealed mild tricuspid regurgitation. The pulmonary artery systolic pressure is estimated at 36 mmHg. There is mild pulmonary hypertension. PULMONIC VALVE Doppler and Color Flow revealed no pulmonic valvular regurgitation. There is no pulmonic valvular santhosh nosis. GREAT VESSELS The aortic root is normal in size. The ascending aorta is normal in size. The pulmonary artery is nor mal. The IVC is normal in size and collapses >50% with inspiration. PERICARDIAL EFFUSION There is no evidence of significant pericardial effusion. Critical Notification Critical Value: No <Conclusion> The left ventricular systolic function is normal. The Ejection Fraction is 60-65%. There is normal LV segmental wall motion. Mild tricuspid regurgitation. The pulmonary artery systolic pressure is estimated at 36 mmHg. There is no evidence of significant pericardial effusion.
--- NOTE | 2016-06-12 02:33 | CONS ---
DATE OF CONSULTATION: 06/11/2016 Apparently, the patient came in with a 2-day history of nausea, vomiting and abdominal discomfort. She stated the pain came time to time and therefore she came to the Emergency Room. She was found to have atrial fibrillation, which apparently she has not had before and I treated her for that. She was admitted. The CT scan of the abdomen showed no real bowel obstruction, but a large ventral hernia. She also had no evidence of perforation or irritation, etc. The hernia is wide mouth and at the level of the umbilicus down. The laboratory data has been essentially unremarkable. No evidence of infection or inflammation. History showed that the patient did have a hysterectomy about 2 years ago. She did have, about more than 10 years ago, repair of ventral hernia. She otherwise has been doing relatively well. We would suggest at this point that she had her hernia repair, but would likely have a bowel prep done and make sure the cardiac clearance is done. We will discuss this with her and ____ during this hospital stay. She has had flatus and has no evidence of obstruction as it was there in the colon throughout the exam yesterday and last night. The NG tube is causing her much discomfort, we will discontinue that, keep her n.p.o. and planned to see tomorrow. We will follow and do thank the medical team for allowing me to see this very pleasant lady. IMPRESSION: 1. Ventral hernia. 2. Atrial fibrillation. 3. Hypertension. 4. Morbid obesity. 5. Status post hysterectomy for cancer of the uterus. PRATEEK JOLLY MD DR: HUMA/radha JOB#: [id number] / [id number]
[2016-06-12 03:15] VITALS: BP 133/57
[2016-06-12 07:15] LABS: BASO % 0 % (0-3); EOS % 2 % (0-3); HEMATOCRIT 28.2 % (36.0-47.0); LYMPH # 1.5 x10^3/uL (1.0-4.8); LYMPH % 15 % (24-48); MEAN CORPUSCULAR HEMOGLOBIN 29 pg (25-35); MEAN CORPUSCULAR HGB CONC 32 g/dL (31-37); MEAN CORPUSCULAR VOLUME 91 fL (79-100); MONO % 8 % (0-9); NEUT % 76 % (31-73); PLATELET COUNT 165 x10^3/uL (140-400); RED BLOOD COUNT 3.12 x10^6/uL (3.50-5.40); RED CELL DISTRIBUTION WIDTH 15.5 % (11.5-14.5); WHITE BLOOD COUNT 10.1 x10^3/uL (4.0-11.0)
[2016-06-12 07:31] LABS: ALBUMIN 2.1 g/dL (3.4-5.0); ALBUMIN/GLOBULIN RATIO 0.6 (1.0-1.7); CREATININE 3.7 mg/dL (0.6-1.0); GFR 14.6; POTASSIUM 4.1 mmol/L (3.5-5.1); TOTAL BILIRUBIN 0.3 mg/dL (0.2-1.0); TOTAL PROTEIN 5.5 g/dL (6.4-8.2)
[2016-06-12 07:36] LABS: INR 1.2 (0.8-1.1); PROTHROMBIN TIME PATIENT 14.4 SEC (11.7-14.0)
[2016-06-12 07:42] VITALS: BP 120/55
[2016-06-12] MEDS ORDERED: REGADENOSON 0.4 MG/5 ML DISP.SYRIN. IV ONE (08:00)
[2016-06-12] MEDS: INSULIN ASPART 300 UNITS/3 ML INSULN.PEN SQ SCH ×3 (08:00→17:00)
--- NOTE | 2016-06-12 08:05 | RAD ---
Indication small bowel obstruction. A single view of the chest was obtained as well as flat and upright films of the abdomen. Comparison is made to a similar series of films one day earlier. Note is made of a CT examination of the abdomen and pelvis 06/10/2016. The heart and pulmonary vessels are unremarkable. The lungs are clear of acute infiltrates. Nasogastric tube has been removed. There is no free air. Gas is seen in a few bowel loops in the abdomen but similar to the previous exam the abdomen is largely gasless. IMPRESSION: No acute finding in the chest. Interval removal of nasogastric tube. The abdominal gas pattern is largely gasless
--- NOTE | 2016-06-12 08:22 | PDOC ---
SUBJECTIVE Subjective pt not seen. was at stress testing OBJECTIVE Vital Signs Vital Signs Date Time Temp Pulse Resp B/P Pulse Ox O2 Delivery O2 Flow Rate FiO2 06/12/16 07:50 Nasal Cannula 2.0 06/12/16 07:42 99.0 80 18 120/55 98 Nasal Cannula 2.0 99.0 06/12/16 03:15 98.5 89 18 133/57 92 Nasal Cannula 2.0 98.5 06/11/16 23:06 98.6 75 16 113/52 95 Nasal Cannula 2.0 98.6 06/11/16 20:57 Nasal Cannula 2.0 06/11/16 19:44 98.3 74 16 100/44 94 Nasal Cannula 2.0 98.3 06/11/16 18:00 76 113/38 06/11/16 17:00 70 116/57 06/11/16 15:44 98.1 73 18 96/43 98 Nasal Cannula 98.1 06/11/16 14:00 80 99/56 06/11/16 13:00 84 127/63 06/11/16 12:00 86 120/60 06/11/16 11:18 97.5 81 22 132/54 97 Nasal Cannula 97.5 06/11/16 10:00 90 122/63 06/11/16 09:00 90 105/56 06/11/16 08:45 95 Nasal Cannula 2.0 I & O Intake and Output 06/12/16 07:00 Intake Total 875 ml Output Total 675 ml Balance 200 ml Intake Oral 0 ml IV Total 875 ml Output Urine Total 675 ml # Voids 1 # Bowel Movements 2 ASSESSMENT/PLAN Assessment/Plan 1. Small bowel obstruction with possible incarceration with a ventral hernia: 2. A. fib/flutter with rapid ventricular response, now converted: 3. Diabetes mellitus type 2, diet controlled: 4. Hypertension: 5. Acute renal failure, vasomotor etiology, with history of chronic kidney disease stage III/IV with baseline CRE 1.9 and GFR 28-30: 6. History of COPD: 7. Chronic lymphedema in the bilateral lower extremities: 8. Morbid obesity: 9. History of uterine cancer status post hysterectomy: 10. History of partial colon/small bowel? resection: 11. Mildly elevated lipase with a history of pancreatitis: Problems: COMMENT Lab Laboratory Tests Test 06/11/16 11:59 06/11/16 16:45 06/11/16 20:56 06/12/16 06:43 Glucose (Fingerstick) 79mg/dL (70-99) 77mg/dL (70-99) 80mg/dL (70-99) White Blood Count 10.1x10^3/uL (4.0-11.0) Red Blood Count 3.12x10^6/uL (3.50-5.40) Hemoglobin 9.0g/dL (12.0-15.5) Hematocrit 28.2% (36.0-47.0) Mean Corpuscular Volume 91fL (79-100) Mean Corpuscular Hemoglobin 29pg (25-35) Mean Corpuscular Hemoglobin Concent 32g/dL (31-37) Red Cell Distribution Width 15.5% (11.5-14.5) Platelet Count 165x10^3/uL (140-400) Neutrophils (%) (Auto) 76% (31-73) Lymphocytes (%) (Auto) 15% (24-48) Monocytes (%) (Auto) 8% (0-9) Eosinophils (%) (Auto) 2% (0-3) Basophils (%) (Auto) 0% (0-3) Neutrophils # (Auto) 7.6x10^3uL (1.8-7.7) Lymphocytes # (Auto) 1.5x10^3/uL (1.0-4.8) Monocytes # (Auto) 0.8x10^3/uL (0.0-1.1) Eosinophils # (Auto) 0.2x10^3/uL (0.0-0.7) Basophils # (Auto) 0.0x10^3/uL (0.0-0.2) Prothrombin Time 14.4SEC (11.7-14.0) Prothromb Time International Ratio 1.2 (0.8-1.1) Sodium Level 145mmol/L (136-145) Potassium Level 4.1mmol/L (3.5-5.1) Chloride Level 109mmol/L (98-107) Carbon Dioxide Level 26mmol/L (21-32) Anion Gap 10 (6-14) Blood Urea Nitrogen 47mg/dL (7-20) Creatinine 3.7mg/dL (0.6-1.0) Estimated GFR (Cockcroft-Gault) 14.6 BUN/Creatinine Ratio 13 (6-20) Glucose Level 75mg/dL (70-99) Calcium Level 8.0mg/dL (8.5-10.1) Magnesium Level 2.1mg/dL (1.8-2.4) Total Bilirubin 0.3mg/dL (0.2-1.0) Aspartate Amino Transf (AST/SGOT) 14U/L (15-37) Alanine Aminotransferase (ALT/SGPT) 11U/L (14-59) Alkaline Phosphatase 54U/L (46-116) Total Protein 5.5g/dL (6.4-8.2) Albumin 2.1g/dL (3.4-5.0) Albumin/Globulin Ratio 0.6 (1.0-1.7) Lipase 77U/L (73-393) CURTIS MARCELINO MD Jun 12, 2016 08:22
[2016-06-12] MEDS: ALBUTEROL SULFATE 2.5 MG/3 ML NEBU. NEB SCH ×4 (09:00→21:03)
--- NOTE | 2016-06-12 09:26 | PDOC ---
CARDIO Progress Notes Date and Time Date of Service 06/12/2016 Time of Evaluation 0920 Subjective Subjective: No Chest Pain, No shortness of breath, No Palpitations, No Dizziness Vitals Vitals Vital Signs Date Time Temp Pulse Resp B/P Pulse Ox O2 Delivery O2 Flow Rate FiO2 06/12/16 07:50 Nasal Cannula 2.0 06/12/16 07:42 99.0 80 18 120/55 98 99.0 Weight Weight [ ] Input and Output Intake and Output Intake and Output 06/12/16 06:59 Intake Total 875 ml Output Total 675 ml Balance 200 ml Intake Oral 0 ml IV Total 875 ml Output Urine Total 675 ml # Voids 1 # Bowel Movements 2 Laboratory Labs Laboratory Tests Test 06/11/16 11:59 06/11/16 16:45 06/11/16 20:56 06/12/16 06:43 Glucose (Fingerstick) 79mg/dL (70-99) 77mg/dL (70-99) 80mg/dL (70-99) White Blood Count 10.1x10^3/uL (4.0-11.0) Red Blood Count 3.12x10^6/uL (3.50-5.40) Hemoglobin 9.0g/dL (12.0-15.5) Hematocrit 28.2% (36.0-47.0) Mean Corpuscular Volume 91fL (79-100) Mean Corpuscular Hemoglobin 29pg (25-35) Mean Corpuscular Hemoglobin Concent 32g/dL (31-37) Red Cell Distribution Width 15.5% (11.5-14.5) Platelet Count 165x10^3/uL (140-400) Neutrophils (%) (Auto) 76% (31-73) Lymphocytes (%) (Auto) 15% (24-48) Monocytes (%) (Auto) 8% (0-9) Eosinophils (%) (Auto) 2% (0-3) Basophils (%) (Auto) 0% (0-3) Neutrophils # (Auto) 7.6x10^3uL (1.8-7.7) Lymphocytes # (Auto) 1.5x10^3/uL (1.0-4.8) Monocytes # (Auto) 0.8x10^3/uL (0.0-1.1) Eosinophils # (Auto) 0.2x10^3/uL (0.0-0.7) Basophils # (Auto) 0.0x10^3/uL (0.0-0.2) Prothrombin Time 14.4SEC (11.7-14.0) Prothromb Time International Ratio 1.2 (0.8-1.1) Sodium Level 145mmol/L (136-145) Potassium Level 4.1mmol/L (3.5-5.1) Chloride Level 109mmol/L (98-107) Carbon Dioxide Level 26mmol/L (21-32) Anion Gap 10 (6-14) Blood Urea Nitrogen 47mg/dL (7-20) Creatinine 3.7mg/dL (0.6-1.0) Estimated GFR (Cockcroft-Gault) 14.6 BUN/Creatinine Ratio 13 (6-20) Glucose Level 75mg/dL (70-99) Calcium Level 8.0mg/dL (8.5-10.1) Magnesium Level 2.1mg/dL (1.8-2.4) Total Bilirubin 0.3mg/dL (0.2-1.0) Aspartate Amino Transf (AST/SGOT) 14U/L (15-37) Alanine Aminotransferase (ALT/SGPT) 11U/L (14-59) Alkaline Phosphatase 54U/L (46-116) Total Protein 5.5g/dL (6.4-8.2) Albumin 2.1g/dL (3.4-5.0) Albumin/Globulin Ratio 0.6 (1.0-1.7) Lipase 77U/L (73-393) Assessment Assessment 1. atrial flutter with RVR, presumed new onset rate controlled with IV diltiazem K, Mg, TSH WNL echo with preserved LVEF and no significant findings continue dilitazem gtt until pt tolerating p.o. no need for OAC 2. ventral hernia surgical repair planned MPI for risk stratification given age, morbid obesity, HTN 3. HTN resume home meds when oral tolerated 4. obesity CHRISTOPHER SAUER [employer] SUPERVISOR Jun 12, 2016 09:26
[2016-06-12 10:07] LABS: CHOLESTEROL/HDL RATIO 2.8
--- NOTE | 2016-06-12 10:58 | HP ---
ADMIT DATE: 06/11/2016 ATTENDING PHYSICIAN: Curtis Marcelino M.D. CHIEF COMPLAINT: Abdominal pain. HISTORY OF PRESENT ILLNESS: The patient is a 71-year-old female with a history of ventral hernia and pancreatitis in the past who had the onset on 06/08/2016 of nausea and vomiting with epigastric pain. This continued. She has not had any significant oral intake as a result of this. She denied any constipation leading up to this. She had the onset of a watery diarrhea on 06/10/2016. She denies any blood in the stool. There is no blood in the emesis. She did have some mild subjective fevers. She did feel like she was getting more abdominal bloating during this time. She denies any unusual foods or sick contacts. The patient also noted that she was having episodes of chest pressure and possibly some palpitations intermittently over the last couple of weeks. Approximately 2 months ago she had an episode of chest pressure with left arm pain. She denied any associated shortness of breath. There has been no increased swelling in the lower extremities during her recent illness with GI symptoms. She denies any episodes of chest pain or shortness of breath. PAST MEDICAL HISTORY: Significant for COPD, hypertension, possible asthma component, diabetes mellitus type 2 that is diet controlled, hypertension, uterine cancer status post hysterectomy several years ago, chronic ventral abdominal hernia, chronic kidney disease stage III/IV with a baseline creatinine of approximately 2 and a GFR of 28-30 and gout. PAST SURGICAL HISTORY: Hysterectomy, colon resection in the past for uncertain reasons. FAMILY HISTORY: Father had coronary artery disease, otherwise noncontributory. SOCIAL HISTORY: The patient was a prior smoker for approximately 9 years. She quit in the 1980s. She denies any alcohol use. She lives at home with her daughter. Of note, nursing has found that she will be moving to a new home at the beginning of the month that does not have an elevator. Currently, the apartment that she lives does have an elevator and she is mostly wheelchair bound for mobility. MEDICATIONS: At the time of admission include albuterol 2 puffs q.i.d., allopurinol 300 mg p.o. daily, Flonase 1 spray each nostril daily, Lasix 40 mg p.o. daily, [place] 5/325 one p.o. q. 6 hours p.r.n., Diovan HCT 80/12.5 one p.o. daily, multivitamin 1 p.o. daily. Amlodipine 5 mg p.o. daily is in her medical chart, but it is not certain if she is actually taking that at this time. She has been on glyburide 2.5 mg p.o. daily in the past, but has not taken that for the past year or two. REVIEW OF SYSTEMS: The patient denies any significant fevers, although she has had subjective fever she denies it. She has had decreased oral intake. She denies any shortness of breath or cough over her baseline shortness of breath which she uses inhalers for. She does not use oxygen. She has not had any recent palpitations, but has had some episodes in the past couple of months. She did have an episode of chest pain as noted in the HPI a couple months ago. She has been voiding without any difficulty. She denies any dysuria or hematuria. She denies any increased lower extremity swelling over her baseline chronic lymphedema in the bilateral lower legs. She uses a wheelchair for mobility. Primarily, she is not having any mood issues. PHYSICAL EXAMINATION: VITAL SIGNS: At the time of admission include temperature 98.1, pulse 148, respiratory rate 16, blood pressure 148/97, O2 sat 96% on room air. GENERAL: The patient is a well-developed, morbidly obese female in no acute distress, lying in bed. She is alert and oriented. HEENT: The pupils are equal and round. Sclerae are anicteric. Extraocular motions are intact. The oropharynx is moist. There is no scleral icterus. NECK: Without JVD, but it is obese. CHEST: Has decreased air movement throughout, but with no wheezes or rales. CARDIOVASCULAR: The heart has a regular rate and rhythm. At present there is no murmur. Telemetry shows that she is currently in a sinus rhythm and she converted from atrial fibrillation/flutter to sinus rhythm over the course of the night after admission. ABDOMEN: Obese, tenderness in the epigastric area. There is a ventral hernia present. There is some voluntary guarding. There is no rebound tenderness. EXTREMITIES: There is chronic lymphedema at the patient's baseline. NEUROLOGIC: Grossly intact and nonfocal. PSYCHIATRIC: Mood and affect appear appropriate. LABORATORY DATA: At the time of admission, WBC 8.6, hemoglobin 11.5, hematocrit 35.8, platelets 253. Urine shows specific gravity 1.015, greater than 300 protein, 100 glucose, small blood, moderate hyaline casts, few granular casts, no rbc's or wbc's. Sodium 146, potassium 4.0, chloride 107, CO2 29, BUN 40, creatinine 2.7, glucose 114. LFTs are within normal limits. BNP was 5901. Albumin was 2.4, lipase was 408. Troponin was less than 0.01. Lactic acid was 0.9. Chest x-ray showed mild enlargement of the cardiac silhouette, but otherwise no focal process. CT of the abdomen and pelvis showed large ventral abdominal hernia containing fat, multiple loops of small bowel and a segment of colon. The herniated loops of small bowel are distended suggesting a component of mechanical obstruction. It is similar to prior study. There was possibly some stranding within the herniated fat, colonic diverticulosis, small renal cysts suspected. EKG shows atrial flutter with rapid ventricular response. No acute ischemic changes. There may be a component of atrial fibrillation noted on telemetry. IMPRESSION: 1. Possible small-bowel obstruction with incarceration through a priorly existing ventral hernia. 2. Atrial flutter/fibrillation with rapid ventricular response, now converted. 3. Diabetes mellitus type 2, diet controlled usually. 4. Acute renal failure, probably vasomotor etiology, but with a history of chronic kidney disease stage III/IV with a baseline creatinine of 1.9 and GFR of approximately 28-30. 5. Hypertension. 6. History of chronic obstructive pulmonary disease. 7. Chronic lymphedema in the bilateral lower extremities. 8. Morbid obesity. 9. History of uterine cancer, status post hysterectomy. 10. Mildly elevated lipase with a prior history of pancreatitis. PLAN: The patient is admitted. She is made n.p.o. She had an NG tube placed. General Surgery was consulted. She is feeling a little bit better regarding that. Cardiology was consulted regarding her atrial fibrillation/flutter and she did convert with a Cardizem drip. She will continue on that for right now until she is able to take oral nutrition. We will try to rehydrate her with fluids and see what her creatinine does. We will hold her other medications until she is able to take oral nutrition. Right now, we will use fingersticks q.i.d. and sliding scale if needed, although her blood sugars are usually well controlled with her last hemoglobin A1c at 5.6 as an outpatient. CURTIS MARCELINO MD DR: MIRI/radha JOB#: [id number] / [id number]
--- NOTE | 2016-06-12 11:06 | PDOC ---
SURGICAL PROGRESS NOTE Subjective Patient is doing very well. History shows that she has the moderate abd discomfort from "time to time". Abd normal and she has BM's and flatus and normal GI function. Diet started today and will plan discharge when OK with medical team and I will see her as outpatient and she can decide if and when to have the hernia repair and also plan bowell prep etc. Not certain she ever hd SBO this admission. Patient agrees and will see in am. Wednesday. Vital Signs Vital Signs Date Time Temp Pulse Resp B/P Pulse Ox O2 Delivery O2 Flow Rate FiO2 06/12/16 07:50 Nasal Cannula 2.0 06/12/16 07:42 99.0 80 18 120/55 98 99.0 I&O Intake and Output 06/12/16 07:00 Intake Total 875 ml Output Total 675 ml Balance 200 ml Intake Oral 0 ml IV Total 875 ml Output Urine Total 675 ml # Voids 1 # Bowel Movements 2 Labs Laboratory Tests Test 06/10/16 18:44 06/10/16 19:30 06/11/16 00:58 06/11/16 01:21 White Blood Count 8.6x10^3/uL (4.0-11.0) Red Blood Count 4.03x10^6/uL (3.50-5.40) Hemoglobin 11.5g/dL (12.0-15.5) Hematocrit 35.8% (36.0-47.0) Mean Corpuscular Volume 89fL (79-100) Mean Corpuscular Hemoglobin 29pg (25-35) Mean Corpuscular Hemoglobin Concent 32g/dL (31-37) Red Cell Distribution Width 15.6% (11.5-14.5) Platelet Count 253x10^3/uL (140-400) Neutrophils (%) (Auto) 68% (31-73) Lymphocytes (%) (Auto) 22% (24-48) Monocytes (%) (Auto) 9% (0-9) Eosinophils (%) (Auto) 1% (0-3) Basophils (%) (Auto) 0% (0-3) Neutrophils # (Auto) 5.9x10^3uL (1.8-7.7) Lymphocytes # (Auto) 1.9x10^3/uL (1.0-4.8) Monocytes # (Auto) 0.8x10^3/uL (0.0-1.1) Eosinophils # (Auto) 0.1x10^3/uL (0.0-0.7) Basophils # (Auto) 0.0x10^3/uL (0.0-0.2) Sodium Level 146mmol/L (136-145) Potassium Level 4.0mmol/L (3.5-5.1) Chloride Level 107mmol/L (98-107) Carbon Dioxide Level 29mmol/L (21-32) Anion Gap 10 (6-14) Blood Urea Nitrogen 40mg/dL (7-20) Creatinine 2.7mg/dL (0.6-1.0) Estimated GFR (Cockcroft-Gault) 21.0 Glucose Level 114mg/dL (70-99) Lactic Acid Level 0.9mmol/L (0.4-2.0) Calcium Level 8.8mg/dL (8.5-10.1) Total Bilirubin 0.6mg/dL (0.2-1.0) Direct Bilirubin 0.1mg/dL (0.0-0.2) Aspartate Amino Transf (AST/SGOT) 15U/L (15-37) Alanine Aminotransferase (ALT/SGPT) 13U/L (14-59) Alkaline Phosphatase 71U/L (46-116) Troponin I Quantitative < 0.017ng/mL (0.000-0.055) 0.023ng/mL (0.000-0.055) OL-Cnm-Y-Type Natriuretic Peptide 5901pg/mL (0-124) Total Protein 7.2g/dL (6.4-8.2) Albumin 2.4g/dL (3.4-5.0) Lipase 408U/L (73-393) Urine Collection Type U cath Urine Color Yellow Urine Clarity Cloudy Urine pH 5.5 Urine Specific [place] 1.015 Urine Protein >=300mg/dL (NEG-TRACE) Urine Glucose (UA) 100mg/dL (NEG) Urine Ketones (Stick) Negativemg/dL (NEG) Urine Blood Small (NEG) Urine Nitrite Negative (NEG) Urine Bilirubin Negative (NEG) Urine Urobilinogen Dipstick 0.2mg/dL (0.2 mg/dL) Urine Leukocyte Esterase Negative (NEG) Urine RBC 0/HPF (0-2) Urine WBC 0/HPF (0-4) Urine Amorphous Sediment Present/HPF Urine Bacteria Few/HPF (0-FEW) Urine Hyaline Casts Moderate/HPF Urine Granular Casts Few/HPF Glucose (Fingerstick) 93mg/dL (70-99) Test 06/11/16 06:45 06/11/16 08:00 06/11/16 11:59 06/11/16 16:45 Glucose (Fingerstick) 78mg/dL (70-99) 79mg/dL (70-99) 77mg/dL (70-99) White Blood Count 8.9x10^3/uL (4.0-11.0) Red Blood Count 3.30x10^6/uL (3.50-5.40) Hemoglobin 9.5g/dL (12.0-15.5) Hematocrit 29.8% (36.0-47.0) Mean Corpuscular Volume 90fL (79-100) Mean Corpuscular Hemoglobin 29pg (25-35) Mean Corpuscular Hemoglobin Concent 32g/dL (31-37) Red Cell Distribution Width 15.8% (11.5-14.5) Platelet Count 203x10^3/uL (140-400) Neutrophils (%) (Auto) 62% (31-73) Lymphocytes (%) (Auto) 25% (24-48) Monocytes (%) (Auto) 11% (0-9) Eosinophils (%) (Auto) 2% (0-3) Basophils (%) (Auto) 0% (0-3) Neutrophils # (Auto) 5.5x10^3uL (1.8-7.7) Lymphocytes # (Auto) 2.2x10^3/uL (1.0-4.8) Monocytes # (Auto) 0.9x10^3/uL (0.0-1.1) Eosinophils # (Auto) 0.2x10^3/uL (0.0-0.7) Basophils # (Auto) 0.0x10^3/uL (0.0-0.2) Sodium Level 147mmol/L (136-145) Potassium Level 4.1mmol/L (3.5-5.1) Chloride Level 110mmol/L (98-107) Carbon Dioxide Level 30mmol/L (21-32) Anion Gap 7 (6-14) Blood Urea Nitrogen 42mg/dL (7-20) Creatinine 3.1mg/dL (0.6-1.0) Estimated GFR (Cockcroft-Gault) 17.9 Glucose Level 90mg/dL (70-99) Calcium Level 8.2mg/dL (8.5-10.1) Magnesium Level 1.5mg/dL (1.8-2.4) Troponin I Quantitative 0.026ng/mL (0.000-0.055) Lipase 100U/L (73-393) Thyroid Stimulating Hormone (TSH) 1.087uIU/mL (0.358-3.74) Test 06/11/16 20:56 06/12/16 06:43 Glucose (Fingerstick) 80mg/dL (70-99) White Blood Count 10.1x10^3/uL (4.0-11.0) Red Blood Count 3.12x10^6/uL (3.50-5.40) Hemoglobin 9.0g/dL (12.0-15.5) Hematocrit 28.2% (36.0-47.0) Mean Corpuscular Volume 91fL (79-100) Mean Corpuscular Hemoglobin 29pg (25-35) Mean Corpuscular Hemoglobin Concent 32g/dL (31-37) Red Cell Distribution Width 15.5% (11.5-14.5) Platelet Count 165x10^3/uL (140-400) Neutrophils (%) (Auto) 76% (31-73) Lymphocytes (%) (Auto) 15% (24-48) Monocytes (%) (Auto) 8% (0-9) Eosinophils (%) (Auto) 2% (0-3) Basophils (%) (Auto) 0% (0-3) Neutrophils # (Auto) 7.6x10^3uL (1.8-7.7) Lymphocytes # (Auto) 1.5x10^3/uL (1.0-4.8) Monocytes # (Auto) 0.8x10^3/uL (0.0-1.1) Eosinophils # (Auto) 0.2x10^3/uL (0.0-0.7) Basophils # (Auto) 0.0x10^3/uL (0.0-0.2) Prothrombin Time 14.4SEC (11.7-14.0) Prothromb Time International Ratio 1.2 (0.8-1.1) Sodium Level 145mmol/L (136-145) Potassium Level 4.1mmol/L (3.5-5.1) Chloride Level 109mmol/L (98-107) Carbon Dioxide Level 26mmol/L (21-32) Anion Gap 10 (6-14) Blood Urea Nitrogen 47mg/dL (7-20) Creatinine 3.7mg/dL (0.6-1.0) Estimated GFR (Cockcroft-Gault) 14.6 BUN/Creatinine Ratio 13 (6-20) Glucose Level 75mg/dL (70-99) Calcium Level 8.0mg/dL (8.5-10.1) Magnesium Level 2.1mg/dL (1.8-2.4) Total Bilirubin 0.3mg/dL (0.2-1.0) Aspartate Amino Transf (AST/SGOT) 14U/L (15-37) Alanine Aminotransferase (ALT/SGPT) 11U/L (14-59) Alkaline Phosphatase 54U/L (46-116) Total Protein 5.5g/dL (6.4-8.2) Albumin 2.1g/dL (3.4-5.0) Albumin/Globulin Ratio 0.6 (1.0-1.7) Triglycerides Level 97mg/dL (0-150) Cholesterol Level 146mg/dL (0-200) LDL Cholesterol, Calculated 75mg/dL (0-100) VLDL Cholesterol, Calculated 19mg/dL (0-40) Non-HDL Cholesterol Calculated 94mg/dL (0-129) HDL Cholesterol 52mg/dL (40-60) Cholesterol/HDL Ratio 2.8 Lipase 77U/L (73-393) Laboratory Tests Test 06/11/16 11:59 06/11/16 16:45 06/11/16 20:56 06/12/16 06:43 Glucose (Fingerstick) 79mg/dL (70-99) 77mg/dL (70-99) 80mg/dL (70-99) White Blood Count 10.1x10^3/uL (4.0-11.0) Red Blood Count 3.12x10^6/uL (3.50-5.40) Hemoglobin 9.0g/dL (12.0-15.5) Hematocrit 28.2% (36.0-47.0) Mean Corpuscular Volume 91fL (79-100) Mean Corpuscular Hemoglobin 29pg (25-35) Mean Corpuscular Hemoglobin Concent 32g/dL (31-37) Red Cell Distribution Width 15.5% (11.5-14.5) Platelet Count 165x10^3/uL (140-400) Neutrophils (%) (Auto) 76% (31-73) Lymphocytes (%) (Auto) 15% (24-48) Monocytes (%) (Auto) 8% (0-9) Eosinophils (%) (Auto) 2% (0-3) Basophils (%) (Auto) 0% (0-3) Neutrophils # (Auto) 7.6x10^3uL (1.8-7.7) Lymphocytes # (Auto) 1.5x10^3/uL (1.0-4.8) Monocytes # (Auto) 0.8x10^3/uL (0.0-1.1) Eosinophils # (Auto) 0.2x10^3/uL (0.0-0.7) Basophils # (Auto) 0.0x10^3/uL (0.0-0.2) Prothrombin Time 14.4SEC (11.7-14.0) Prothromb Time International Ratio 1.2 (0.8-1.1) Sodium Level 145mmol/L (136-145) Potassium Level 4.1mmol/L (3.5-5.1) Chloride Level 109mmol/L (98-107) Carbon Dioxide Level 26mmol/L (21-32) Anion Gap 10 (6-14) Blood Urea Nitrogen 47mg/dL (7-20) Creatinine 3.7mg/dL (0.6-1.0) Estimated GFR (Cockcroft-Gault) 14.6 BUN/Creatinine Ratio 13 (6-20) Glucose Level 75mg/dL (70-99) Calcium Level 8.0mg/dL (8.5-10.1) Magnesium Level 2.1mg/dL (1.8-2.4) Total Bilirubin 0.3mg/dL (0.2-1.0) Aspartate Amino Transf (AST/SGOT) 14U/L (15-37) Alanine Aminotransferase (ALT/SGPT) 11U/L (14-59) Alkaline Phosphatase 54U/L (46-116) Total Protein 5.5g/dL (6.4-8.2) Albumin 2.1g/dL (3.4-5.0) Albumin/Globulin Ratio 0.6 (1.0-1.7) Triglycerides Level 97mg/dL (0-150) Cholesterol Level 146mg/dL (0-200) LDL Cholesterol, Calculated 75mg/dL (0-100) VLDL Cholesterol, Calculated 19mg/dL (0-40) Non-HDL Cholesterol Calculated 94mg/dL (0-129) HDL Cholesterol 52mg/dL (40-60) Cholesterol/HDL Ratio 2.8 Lipase 77U/L (73-393) Problem List Problems Medical Problems: (1) Abdominal pain Status: Acute (2) Atrial flutter Status: Acute Problems: PRATEEK JOLLY MD Jun 12, 2016 11:06
--- NOTE | 2016-06-12 12:55 | RAD ---
APPROVED REPORT Test Type: Pharmacological Stress Nurse/Tech: Aníbal Alexander RN Test Indications: Pre-op, Afib Cardiac History: see ehr Medications: see ehr Medical History: see ehr Resting ECG: SR Resting Heart Rate: 83 bpm Resting Blood Pressure: 137/58mmHg Pretest Chest Pain: No chest pain Nurse/Tech Notes Lungs CTA, S1, S2 Consent: The procedure was explained to the patient in lay terms. Informed consent was witnessed. Earl eout was entered into [employer]. History and Stress Test performed by Stormy GonzalesNNarcisa Pharm. Details Pharmacologic stress testing was performed using 0.4mg per 5ml of regadenoson given intravenously ove r 7-10 seconds. Stress Symptoms No chest pain or symptoms. POST EXERCISE Reason for Termination: Infusion complete Max HR: 123 bpm Max Blood Pressure: 150/55mmHg Blood Pressure response to exercise: Normal blood pressure response during stress. Chest Pain: No. Arrhythmia: No. ST Change: No. INTERPRETATION Stress EKG Conclusion: The resting EKG shows a normal sinus rhythm. The stress EKG shows no significant changes from baseline. No EKG evidence of stress-induced ischemia. Imaging Protocol IMAGE PROTOCOL: Stress Tc-99m/rest Tc-99m 2 days Rest: Stress: Viability: Radiopharm.Tc99m Sestamibi Dose36.1mCi Img Date 06/12/2016 Inj-Img [id number]. Stress Admin Site: IV - Left ForearmAdministrator: LISSET Steinberg, ARRT (R)(N) STRESS DATA End Diast. Vol.122.0mlAv. Heart Rate89.0bpm End Syst. Vol.33.0mlCO Index BSA0.0L/min Myocardial Bpsa708.0gEject. Tgliyglc87.0% Stress Rates Pk. Fill Rate3.78EDV/secLVtime Pk. Fill 113.67msec Pk. Empty Rate5.03ESV/secLVtime Pk. Wncsn199.20msec 02/24 Pk. Fill2.21EDV/sec Stress Scores Regional WT0.00Summed WT0.00 Regional WM0.00Summed WM0.00 LV Perfusion The stress images showed no significant defects. Wall Motion Normal left ventricular systolic function with an ejection fraction of greater than 70%. LV Perf. Quant 17 Seg. SSS0.00 Stress Defect Extent (% LAD)0.00Rest Defect Extent (% LAD)Rev. Defect Extent (% LAD)0.00 Stress Defect Extent (% LCX) 0.00Rest Defect Extent (% LCX)Rev. Defect Extent (% LCX)0.00 Stress Defect Extent (% RCA)0.00Rest Defect Extent (% RCA)Rev. Defect Extent (% RCA)0.00 Stress Defect Extent (% TIFFANIE)0.00Rest Defect Extent (% TIFFANIE)Rev. Defect Extent (% TIFFANIE)0.00 Conclusion 1. No EKG evidence of stress-induced ischemia. 2. Nuclear imaging shows no ischemia. 3. Normal left ventricular systolic function with an ejection fraction of greater than 70%. 4. Low risk Lexiscan nuclear stress test.
[2016-06-12] MEDS: DILTIAZEM HCL 120 MG CAP.ER.24H PO SCH (13:09)
[2016-06-12] MEDS: FLUTICASONE 50MCG/NASAL SPRAY 16GM BOTTLE. NS SCH (13:09)
[2016-06-12 15:01] VITALS: BP 116/59
--- NOTE | 2016-06-12 15:50 | PDOC2 ---
CONSULT Date of Consult Date of Consult DATE: 06/12/16 TIME: 15:49 Reason for Consult Reason for Consult: BERNY/ CKD III Referring Physician Referring Physician: Dr Valdez Identification/Chief Complaint Chief Complaint Abd Pain/ Afib RVR Problems: Source Source: Chart review, Patient History of Present Illness Reason for Visit: as dictated Past Medical History Cardiovascular: HTN Pulmonary: Asthma, COPD CENTRAL NERVOUS SYSTEM: Other (none) GI: Other (ventral hernia; pancreatitis) Heme/Onc: No pertinent hx Hepatobiliary: No pertinent hx Psych: No pertinent hx Musculoskeletal: Osteoarthritis Rheumatologic: Gout Infectious disease: No pertinent hx ENT: No pertinent hx Renal/: No pertinent hx, UTI Endocrine: Diabetes Dermatology: No pertinent hx Past Surgical History Past Surgical History: Hysterectomy, Other (gastric bypass) Family History Family History: Heart Disease, Kidney Disease (father was on dialysis) Social History No ALCOHOL: none Drugs: None Lives: with Family Current Problem List Problem List Problems Medical Problems: (1) Abdominal pain Status: Acute (2) Atrial flutter Status: Acute Current Medications Current Medications Current Medications Sodium Chloride (Iv Sodium Chloride 0.9% 500ml Bag) 500 ml @ 500 mls/hr 1X ONCE IV Last administered on 06/10/16 19:10; Start 06/10/16 at 18:45; Stop at 19:44; Status DC Hydromorphone HCl (Dilaudid) 0.5 mg PRN Q1HR PRN IV SEVERE PAIN Last administered on 06/10/16 19:00; Start 06/10/16 at 18:45; Stop 06/11/16 at 09:49 ; Status DC Ondansetron HCl (Zofran) 4 mg 1X ONCE IV Last administered on 06/10/16 18:57 ; Start 06/10/16 at 18:45; Stop 06/10/16 at 18:46; Status DC Diltiazem HCl 20 mg 20 mg 1X ONCE IVP Last administered on 06/10/16 19:02; Start 06/10/16 at 19:15; Stop 06/10/16 at 19:16; Status DC Diltiazem HCl/ Dextrose (Cardizem) 125 ml @ 0 mls/hr CONT PRN IV SEE I/O RECORD Last administered on 06/11/16 13:05; Start 06/10/16 at 18:45; Stop 06/12 at 14:00; Status DC Ondansetron HCl (Zofran) 4 mg PRN Q8HRS PRN IV NAUSEA/VOMITING; Start 06/10/16 at 19:45; Stop 06/11/16 at 19:44; Status DC Morphine Sulfate 2 mg 2 mg PRN Q2HR PRN IV PAIN; Start 06/10/16 at 19:45; Stop 06/11/16 at 09:49; Status DC Sodium Chloride 1,000 ml @ 125 mls/hr 1X ONCE IV Last administered on 22:21; Start 06/10/16 at 22:00; Stop 06/11/16 at 05:59; Status DC Sodium Chloride (Iv Sodium Chloride 0.9% 1000ml Bag) 1,000 ml @ 75 mls/hr [id number] IV Last administered on 06/11/16 08:40; Start 06/11/16 at 09:00; Stop 06/11/16 at 13:38; Status DC Insulin Aspart (Novolog) 0-5 UNITS TIDWMEALS SQ ; Start 06/11/16 at 12:00 Dextrose (Dextrose 50%-Water Syringe) 12.5 gm PRN Q15MIN PRN IV SEE COMMENTS; Start 06/11/16 at 08:30 Albuterol Sulfate (Ventolin Neb Soln) 2.5 mg PRN Q4HRS PRN NEB SHORTNESS OF BREATH Last administered on 06/11/16 08:45; Start 06/11/16 at 08:30 Fluticasone Propionate 1 spray 1 spray DAILY NS Last administered on 06/12/16 13:09; Start 06/11/16 at 09:00 Magnesium Sulfate/ Dextrose 100 ml @ 100 mls/hr 1X ONCE IV Last administered on 06/11/16 14:18; Start 06/11/16 at 10:30; Stop 06/11/16 at 11:29; Status DC Magnesium Sulfate/ Dextrose 50 ml @ 25 mls/hr 1X ONCE IV Last administered on 06/11/16 12:24; Start 06/11/16 at 11:30; Stop 06/11/16 at 13:29; Status DC Sodium Chloride (Iv Sodium Chloride 0.45%) 1,000 ml @ 125 mls/hr 1X ONCE IV Last administered on 06/11/16 17:10; Start 06/11/16 at 13:45; Stop 06/11/16 at 21:44; Status DC Regadenoson (Lexiscan) 0.4 mg 1X ONCE IV Last administered on 06/12/16 08:27 ; Start 06/12/16 at 08:00; Stop 06/12/16 at 08:01; Status DC Albuterol Sulfate (Ventolin Neb Soln) 2.5 mg RTQID NEB ; Start 06/12/16 at 09:00 Diltiazem HCl (Cardizem 24hr Cd) 120 mg DAILY PO Last administered on 13:09; Start 06/12/16 at 13:00 Active Scripts Active [place] 5-325 Tablet (Acetaminophen/Hydrocodone Bitart) 1 Each Tablet 1 Tab PO PRN Q6HRS PRN Zithromax (Azithromycin) 250 Mg Tablet 1 Pkg PO UD Reglan (Metoclopramide Hcl) 10 Mg Tablet 1 Tab PO TID PRN Reported Multivitamins (Multivitamin) 1 Each Tablet 1 Tab PO DAILY Diovan Hct 80-12.5 Mg Tablet (Valsartan/Hydrochlorothiazide) 1 Each Tablet 1 Tab PO DAILY Proair Hfa Inhaler (Albuterol Sulfate) 8.5 Gm Hfa.aer.ad 2 Puff INH QID PRN Fluticasone Propionate Nasal [place] (Fluticasone Propionate) 16 Gm [place].susp 1 [place] NS DAILY Furosemide 40 Mg Tablet 1 Tab PO DAILY Allopurinol 300 Mg Tablet 300 Tab PO DAILY Allergies Allergies: Coded Allergies: No Known Drug Allergies (Unverified , 02/13/14) ROS Review of System GEN: no Fevers no Chills EYES: no Visual Complaints ENT: no EN Drainage no Hearing deficiets CVS: no Orthopnea + CP OA - none currently RESP: subj SOB no MARIE GI: no Nausea no Vomiting + Abd pain : no Dysuria no Urgency HEME: no easy bruising no Palp Ly Nodes NEURO no Focal Weakness no Sz PSYCH: no Suicidal Ideation no Depression SKIN: no Rashes ENDO: no Polyuria or Polydipsia no Hot/Cold Intolerance MU SK: no Arthraigia occ Myalgia Physical Exam Physical Exam General Appearance: Awake Alert Oriented x 3 In no Distress; morbidly obese Eyes: VIsion Unchanged Conjunctiva Normal EN: No EN Drainage Mucous Memb. moist Neck: no JVD no JVP Supple no Thyromegaly CVS: S1 S2 no Murmur No Gallop No Rub no Edema Resp: no Rales no Rhonchi no Acc. Muscle use GI: BS +ve NO Bruit Non Tender Non Distended + Obese : no CVA tenderness; no Suprapubic Tenderness SKIN: no Rashes Breast Exam deferred Mu.Sk: Adequate ROM no Muscle Atrophy Heme: Unable to palpate Obvious LAD no palp Splenomegaly NEURO: Good Strength and Tone Cranial Nerves II - XII grossly intact Psych: not Depressed no Active hallucination Vital Signs Vital Signs Date Time Temp Pulse Resp B/P Pulse Ox O2 Delivery O2 Flow Rate FiO2 06/12/16 15:01 98.3 89 20 116/59 96 Nasal Cannula 2.0 98.3 Assessment & Plan ARF: Suspect Vol Dpeltion - IVF as ordered. Current FLuid and E-lyte status does not necessitate emergent need for Dialysis. Will re-evaluate for Dialysis in am - May need HD on Wednesday based on trend of GFR CKD IV - Pt is not aware of same. Basleine creat is closer to 2.5ish or higher ^Na - 0.45% Saline Proteinruia - Quantitate Anemia: check IRon; may need Epogen Transfuse as needed. HTN: Current BP meds reviewed. See orders for changes. Discussed Plan of Care and prognosis etc. at length with family. Labs Labs Laboratory Tests Test 06/10/16 18:44 06/10/16 19:30 06/11/16 00:58 06/11/16 01:21 White Blood Count 8.6x10^3/uL (4.0-11.0) Red Blood Count 4.03x10^6/uL (3.50-5.40) Hemoglobin 11.5g/dL (12.0-15.5) Hematocrit 35.8% (36.0-47.0) Mean Corpuscular Volume 89fL (79-100) Mean Corpuscular Hemoglobin 29pg (25-35) Mean Corpuscular Hemoglobin Concent 32g/dL (31-37) Red Cell Distribution Width 15.6% (11.5-14.5) Platelet Count 253x10^3/uL (140-400) Neutrophils (%) (Auto) 68% (31-73) Lymphocytes (%) (Auto) 22% (24-48) Monocytes (%) (Auto) 9% (0-9) Eosinophils (%) (Auto) 1% (0-3) Basophils (%) (Auto) 0% (0-3) Neutrophils # (Auto) 5.9x10^3uL (1.8-7.7) Lymphocytes # (Auto) 1.9x10^3/uL (1.0-4.8) Monocytes # (Auto) 0.8x10^3/uL (0.0-1.1) Eosinophils # (Auto) 0.1x10^3/uL (0.0-0.7) Basophils # (Auto) 0.0x10^3/uL (0.0-0.2) Sodium Level 146mmol/L (136-145) Potassium Level 4.0mmol/L (3.5-5.1) Chloride Level 107mmol/L (98-107) Carbon Dioxide Level 29mmol/L (21-32) Anion Gap 10 (6-14) Blood Urea Nitrogen 40mg/dL (7-20) Creatinine 2.7mg/dL (0.6-1.0) Estimated GFR (Cockcroft-Gault) 21.0 Glucose Level 114mg/dL (70-99) Lactic Acid Level 0.9mmol/L (0.4-2.0) Calcium Level 8.8mg/dL (8.5-10.1) Total Bilirubin 0.6mg/dL (0.2-1.0) Direct Bilirubin 0.1mg/dL (0.0-0.2) Aspartate Amino Transf (AST/SGOT) 15U/L (15-37) Alanine Aminotransferase (ALT/SGPT) 13U/L (14-59) Alkaline Phosphatase 71U/L (46-116) Troponin I Quantitative < 0.017ng/mL (0.000-0.055) 0.023ng/mL (0.000-0.055) MI-Gsz-[id number]-Type Natriuretic Peptide 5901pg/mL (0-124) Total Protein 7.2g/dL (6.4-8.2) Albumin 2.4g/dL (3.4-5.0) Lipase 408U/L (73-393) Urine Collection Type U cath Urine Color Yellow Urine Clarity Cloudy Urine pH 5.5 Urine Specific [place] 1.015 Urine Protein >=300mg/dL (NEG-TRACE) Urine Glucose (UA) 100mg/dL (NEG) Urine Ketones (Stick) Negativemg/dL (NEG) Urine Blood Small (NEG) Urine Nitrite Negative (NEG) Urine Bilirubin Negative (NEG) Urine Urobilinogen Dipstick 0.2mg/dL (0.2 mg/dL) Urine Leukocyte Esterase Negative (NEG) Urine RBC 0/HPF (0-2) Urine WBC 0/HPF (0-4) Urine Amorphous Sediment Present/HPF Urine Bacteria Few/HPF (0-FEW) Urine Hyaline Casts Moderate/HPF Urine Granular Casts Few/HPF Glucose (Fingerstick) 93mg/dL (70-99) Test 06/11/16 06:45 06/11/16 08:00 06/11/16 11:59 06/11/16 16:45 Glucose (Fingerstick) 78mg/dL (70-99) 79mg/dL (70-99) 77mg/dL (70-99) White Blood Count 8.9x10^3/uL (4.0-11.0) Red Blood Count 3.30x10^6/uL (3.50-5.40) Hemoglobin 9.5g/dL (12.0-15.5) Hematocrit 29.8% (36.0-47.0) Mean Corpuscular Volume 90fL (79-100) Mean Corpuscular Hemoglobin 29pg (25-35) Mean Corpuscular Hemoglobin Concent 32g/dL (31-37) Red Cell Distribution Width 15.8% (11.5-14.5) Platelet Count 203x10^3/uL (140-400) Neutrophils (%) (Auto) 62% (31-73) Lymphocytes (%) (Auto) 25% (24-48) Monocytes (%) (Auto) 11% (0-9) Eosinophils (%) (Auto) 2% (0-3) Basophils (%) (Auto) 0% (0-3) Neutrophils # (Auto) 5.5x10^3uL (1.8-7.7) Lymphocytes # (Auto) 2.2x10^3/uL (1.0-4.8) Monocytes # (Auto) 0.9x10^3/uL (0.0-1.1) Eosinophils # (Auto) 0.2x10^3/uL (0.0-0.7) Basophils # (Auto) 0.0x10^3/uL (0.0-0.2) Sodium Level 147mmol/L (136-145) Potassium Level 4.1mmol/L (3.5-5.1) Chloride Level 110mmol/L (98-107) Carbon Dioxide Level 30mmol/L (21-32) Anion Gap 7 (6-14) Blood Urea Nitrogen 42mg/dL (7-20) Creatinine 3.1mg/dL (0.6-1.0) Estimated GFR (Cockcroft-Gault) 17.9 Glucose Level 90mg/dL (70-99) Calcium Level 8.2mg/dL (8.5-10.1) Magnesium Level 1.5mg/dL (1.8-2.4) Troponin I Quantitative 0.026ng/mL (0.000-0.055) Lipase 100U/L (73-393) Thyroid Stimulating Hormone (TSH) 1.087uIU/mL (0.358-3.74) Test 06/11/16 20:56 06/12/16 06:43 06/12/16 07:30 06/12/16 11:42 Glucose (Fingerstick) 80mg/dL (70-99) 70mg/dL (70-99) 112mg/dL (70-99) White Blood Count 10.1x10^3/uL (4.0-11.0) Red Blood Count 3.12x10^6/uL (3.50-5.40) Hemoglobin 9.0g/dL (12.0-15.5) Hematocrit 28.2% (36.0-47.0) Mean Corpuscular Volume 91fL (79-100) Mean Corpuscular Hemoglobin 29pg (25-35) Mean Corpuscular Hemoglobin Concent 32g/dL (31-37) Red Cell Distribution Width 15.5% (11.5-14.5) Platelet Count 165x10^3/uL (140-400) Neutrophils (%) (Auto) 76% (31-73) Lymphocytes (%) (Auto) 15% (24-48) Monocytes (%) (Auto) 8% (0-9) Eosinophils (%) (Auto) 2% (0-3) Basophils (%) (Auto) 0% (0-3) Neutrophils # (Auto) 7.6x10^3uL (1.8-7.7) Lymphocytes # (Auto) 1.5x10^3/uL (1.0-4.8) Monocytes # (Auto) 0.8x10^3/uL (0.0-1.1) Eosinophils # (Auto) 0.2x10^3/uL (0.0-0.7) Basophils # (Auto) 0.0x10^3/uL (0.0-0.2) Prothrombin Time 14.4SEC (11.7-14.0) Prothromb Time International Ratio 1.2 (0.8-1.1) Sodium Level 145mmol/L (136-145) Potassium Level 4.1mmol/L (3.5-5.1) Chloride Level 109mmol/L (98-107) Carbon Dioxide Level 26mmol/L (21-32) Anion Gap 10 (6-14) Blood Urea Nitrogen 47mg/dL (7-20) Creatinine 3.7mg/dL (0.6-1.0) Estimated GFR (Cockcroft-Gault) 14.6 BUN/Creatinine Ratio 13 (6-20) Glucose Level 75mg/dL (70-99) Calcium Level 8.0mg/dL (8.5-10.1) Magnesium Level 2.1mg/dL (1.8-2.4) Total Bilirubin 0.3mg/dL (0.2-1.0) Aspartate Amino Transf (AST/SGOT) 14U/L (15-37) Alanine Aminotransferase (ALT/SGPT) 11U/L (14-59) Alkaline Phosphatase 54U/L (46-116) Total Protein 5.5g/dL (6.4-8.2) Albumin 2.1g/dL (3.4-5.0) Albumin/Globulin Ratio 0.6 (1.0-1.7) Triglycerides Level 97mg/dL (0-150) Cholesterol Level 146mg/dL (0-200) LDL Cholesterol, Calculated 75mg/dL (0-100) VLDL Cholesterol, Calculated 19mg/dL (0-40) Non-HDL Cholesterol Calculated 94mg/dL (0-129) HDL Cholesterol 52mg/dL (40-60) Cholesterol/HDL Ratio 2.8 Lipase 77U/L (73-393) Laboratory Tests Test 06/11/16 16:45 06/11/16 20:56 06/12/16 06:43 06/12/16 07:30 Glucose (Fingerstick) 77mg/dL (70-99) 80mg/dL (70-99) 70mg/dL (70-99) White Blood Count 10.1x10^3/uL (4.0-11.0) Red Blood Count 3.12x10^6/uL (3.50-5.40) Hemoglobin 9.0g/dL (12.0-15.5) Hematocrit 28.2% (36.0-47.0) Mean Corpuscular Volume 91fL (79-100) Mean Corpuscular Hemoglobin 29pg (25-35) Mean Corpuscular Hemoglobin Concent 32g/dL (31-37) Red Cell Distribution Width 15.5% (11.5-14.5) Platelet Count 165x10^3/uL (140-400) Neutrophils (%) (Auto) 76% (31-73) Lymphocytes (%) (Auto) 15% (24-48) Monocytes (%) (Auto) 8% (0-9) Eosinophils (%) (Auto) 2% (0-3) Basophils (%) (Auto) 0% (0-3) Neutrophils # (Auto) 7.6x10^3uL (1.8-7.7) Lymphocytes # (Auto) 1.5x10^3/uL (1.0-4.8) Monocytes # (Auto) 0.8x10^3/uL (0.0-1.1) Eosinophils # (Auto) 0.2x10^3/uL (0.0-0.7) Basophils # (Auto) 0.0x10^3/uL (0.0-0.2) Prothrombin Time 14.4SEC (11.7-14.0) Prothromb Time International Ratio 1.2 (0.8-1.1) Sodium Level 145mmol/L (136-145) Potassium Level 4.1mmol/L (3.5-5.1) Chloride Level 109mmol/L (98-107) Carbon Dioxide Level 26mmol/L (21-32) Anion Gap 10 (6-14) Blood Urea Nitrogen 47mg/dL (7-20) Creatinine 3.7mg/dL (0.6-1.0) Estimated GFR (Cockcroft-Gault) 14.6 BUN/Creatinine Ratio 13 (6-20) Glucose Level 75mg/dL (70-99) Calcium Level 8.0mg/dL (8.5-10.1) Magnesium Level 2.1mg/dL (1.8-2.4) Total Bilirubin 0.3mg/dL (0.2-1.0) Aspartate Amino Transf (AST/SGOT) 14U/L (15-37) Alanine Aminotransferase (ALT/SGPT) 11U/L (14-59) Alkaline Phosphatase 54U/L (46-116) Total Protein 5.5g/dL (6.4-8.2) Albumin 2.1g/dL (3.4-5.0) Albumin/Globulin Ratio 0.6 (1.0-1.7) Triglycerides Level 97mg/dL (0-150) Cholesterol Level 146mg/dL (0-200) LDL Cholesterol, Calculated 75mg/dL (0-100) VLDL Cholesterol, Calculated 19mg/dL (0-40) Non-HDL Cholesterol Calculated 94mg/dL (0-129) HDL Cholesterol 52mg/dL (40-60) Cholesterol/HDL Ratio 2.8 Lipase 77U/L (73-393) Test 06/12/16 11:42 Glucose (Fingerstick) 112mg/dL (70-99) Images Images IMPRESSION 1. Large ventral abdominal wall hernia containing fat and multiple loops of small bowel and a segment of colon. The herniated loops of small bowel are distended, suggesting a component of mechanical obstruction. This is there is similar compared to the prior study. 2. Colonic diverticulosis. 3. Suspected small renal cysts, difficult to characterize in the absence of contrast. JANE GUZMAN MD Jun 12, 2016 15:50
[2016-06-12] MEDS ORDERED: IV 1/2 NORMAL SALINE 1,000 ML IV SCH (16:00)
[2016-06-12] MEDS ORDERED: MAGNESIUM SULFATE 2GM 50 ML IV PRN (16:00)
[2016-06-12] MEDS: IV 1/2 NORMAL SALINE 1,000 ML IV SCH (16:54)
[2016-06-12 17:17] LABS: % SAT IRON 9 % (15-34); IRON,SERUM 12 ug/dL (50-170)
[2016-06-12 19:35] VITALS: BP 113/53
[2016-06-12] MEDS ORDERED: DARBEPOETIN ALFA 60 MCG/0.3 ML DISP.SYRIN. SQ SCH (21:00)
[2016-06-12 23:45] VITALS: BP 117/48
--- NOTE | 2016-06-13 01:43 | CONS ---
DATE OF CONSULTATION: PRIMARY PHYSICIAN: Robin Valdez M.D. REASON FOR CONSULTATION: Acute on chronic renal insufficiency. HISTORY OF PRESENT ILLNESS: The patient is a 71-year-old morbidly obese -[place] female with past medical history as outlined. She presented to the ER with abdominal pain, epigastric pain. She was also noted to be in AFib, RVR. She was admitted to the hospital, is now status post stress test, which was negative. She is noted to have a large anterior abdominal wall hernia for which she was evaluated by Dr. Villavicencio, no plans for surgery currently noted. Her creatinine on presentation was 2.7. About a year or so ago she was 2.4, this has rapidly gone up to 3.7, corresponding to GFR of 14.6 mL per minute. She denies nausea, vomiting, diarrhea, anorexia at this time. In this setting, we were asked to see her for [id number] renal insufficiency. She does not recollect following up with director agricultural services . Prior to that the patient did have watery stools also. For rest of the details, please see electronic renal consult note. JANE GUZMAN MD DR: FREYA/radha JOB#: [id number] / [id number]
[2016-06-13] MEDS: IV 1/2 NORMAL SALINE 1,000 ML IV SCH ×3 (03:29→16:55)
[2016-06-13 03:45] VITALS: BP 120/58
[2016-06-13 05:14] LABS: BASO % 0 % (0-3); EOS % 2 % (0-3); HEMATOCRIT 24.7 % (36.0-47.0); LYMPH # 1.8 x10^3/uL (1.0-4.8); LYMPH % 21 % (24-48); MEAN CORPUSCULAR HEMOGLOBIN 29 pg (25-35); MEAN CORPUSCULAR HGB CONC 32 g/dL (31-37); MEAN CORPUSCULAR VOLUME 90 fL (79-100); MONO % 9 % (0-9); NEUT % 68 % (31-73); PLATELET COUNT 144 x10^3/uL (140-400); RED BLOOD COUNT 2.75 x10^6/uL (3.50-5.40); RED CELL DISTRIBUTION WIDTH 15.3 % (11.5-14.5); WHITE BLOOD COUNT 8.8 x10^3/uL (4.0-11.0)
[2016-06-13 05:33] LABS: ALBUMIN 1.9 g/dL (3.4-5.0); CALCIUM 7.8 mg/dL (8.5-10.1); CREATININE 3.9 mg/dL (0.6-1.0); GFR 13.7; PHOSPHORUS 4.4 mg/dL (2.6-4.7); POTASSIUM 3.7 mmol/L (3.5-5.1)
[2016-06-13 07:00] VITALS: BP 117/49
[2016-06-13] MEDS: INSULIN ASPART 300 UNITS/3 ML INSULN.PEN SQ SCH (08:00)
[2016-06-13] MEDS: ALBUTEROL SULFATE 2.5 MG/3 ML NEBU. NEB SCH ×4 (08:00→19:24)
[2016-06-13] MEDS: DILTIAZEM HCL 120 MG CAP.ER.24H PO SCH (08:50)
[2016-06-13] MEDS: FLUTICASONE 50MCG/NASAL SPRAY 16GM BOTTLE. NS SCH (08:50)
[2016-06-13 11:00] VITALS: BP 120/52
--- NOTE | 2016-06-13 11:11 | PDOC ---
PROGRESS NOTES Subjective Subjective Patient reports she had BM yesterday. Denies any n/v or abdominal pain at this time. Objective Objective Vital Signs Date Time Temp Pulse Resp B/P Pulse Ox O2 Delivery O2 Flow Rate FiO2 06/13/16 08:50 75 117/49 06/13/16 08:00 Nasal Cannula 2.0 06/13/16 07:00 98.1 20 100 98.1 Intake and Output 06/13/16 06:59 Intake Total 3510 ml Output Total 1110 ml Balance 2400 ml Intake Oral 2010 ml IV Total 1500 ml Output Urine Total 810 ml Urine/Stool Mix 300 ml # Voids 1 Physical Exam Abdomen: Normal bowel sounds, Soft, No tenderness, Other (large ventral hernia present) Heart: Regular rate Extremities: Other (mild chronic edema present bilateral LE's) General: Alert, Oriented X3, No acute distress Lungs: Clear to auscultation Assessment Assessment Problems Medical Problems: (1) Abdominal pain Status: Acute (2) Atrial flutter Status: Acute Plan Plan of Care 1. Afib with RVR - resolved, maintaining sinus rhythm on po Cardizem. Continue. Cardiology following. 2. ventral hernia - may have had mild mechanical bowel obstruction but appears to have resolved. Will advance to regular diet. Dr Villavicencio following, considering surgical repair. 3. Acute renal failure with CKD III/IV - lab not improved from yesterday. Renal consulted, continue IVF. 4. HTN - controlled with present meds. 5. anemia - Hgb decreasing, no evidence of active bleeding at this time. At least partially due to CKD - received Aranesp yesterday. 6. morbid obesity with debility - continue therapies. Comment Review of Relevant I have reviewed the following items brent (where applicable) has been applied. Labs Laboratory Tests Test 06/11/16 11:59 06/11/16 16:45 06/11/16 20:56 06/12/16 06:43 Glucose (Fingerstick) 79mg/dL (70-99) 77mg/dL (70-99) 80mg/dL (70-99) White Blood Count 10.1x10^3/uL (4.0-11.0) Red Blood Count 3.12x10^6/uL (3.50-5.40) Hemoglobin 9.0g/dL (12.0-15.5) Hematocrit 28.2% (36.0-47.0) Mean Corpuscular Volume 91fL (79-100) Mean Corpuscular Hemoglobin 29pg (25-35) Mean Corpuscular Hemoglobin Concent 32g/dL (31-37) Red Cell Distribution Width 15.5% (11.5-14.5) Platelet Count 165x10^3/uL (140-400) Neutrophils (%) (Auto) 76% (31-73) Lymphocytes (%) (Auto) 15% (24-48) Monocytes (%) (Auto) 8% (0-9) Eosinophils (%) (Auto) 2% (0-3) Basophils (%) (Auto) 0% (0-3) Neutrophils # (Auto) 7.6x10^3uL (1.8-7.7) Lymphocytes # (Auto) 1.5x10^3/uL (1.0-4.8) Monocytes # (Auto) 0.8x10^3/uL (0.0-1.1) Eosinophils # (Auto) 0.2x10^3/uL (0.0-0.7) Basophils # (Auto) 0.0x10^3/uL (0.0-0.2) Reticulocyte Count (auto) 2.9% (0.5-2.5) Prothrombin Time 14.4SEC (11.7-14.0) Prothromb Time International Ratio 1.2 (0.8-1.1) Sodium Level 145mmol/L (136-145) Potassium Level 4.1mmol/L (3.5-5.1) Chloride Level 109mmol/L (98-107) Carbon Dioxide Level 26mmol/L (21-32) Anion Gap 10 (6-14) Blood Urea Nitrogen 47mg/dL (7-20) Creatinine 3.7mg/dL (0.6-1.0) Estimated GFR (Cockcroft-Gault) 14.6 BUN/Creatinine Ratio 13 (6-20) Glucose Level 75mg/dL (70-99) Calcium Level 8.0mg/dL (8.5-10.1) Magnesium Level 2.1mg/dL (1.8-2.4) Iron Level 12ug/dL (50-170) Total Iron Binding Capacity 136ug/dL (250-450) Iron Saturation 9% (15-34) Ferritin 423ng/mL (8-252) Total Bilirubin 0.3mg/dL (0.2-1.0) Aspartate Amino Transf (AST/SGOT) 14U/L (15-37) Alanine Aminotransferase (ALT/SGPT) 11U/L (14-59) Alkaline Phosphatase 54U/L (46-116) Total Protein 5.5g/dL (6.4-8.2) Albumin 2.1g/dL (3.4-5.0) Albumin/Globulin Ratio 0.6 (1.0-1.7) Triglycerides Level 97mg/dL (0-150) Cholesterol Level 146mg/dL (0-200) LDL Cholesterol, Calculated 75mg/dL (0-100) VLDL Cholesterol, Calculated 19mg/dL (0-40) Non-HDL Cholesterol Calculated 94mg/dL (0-129) HDL Cholesterol 52mg/dL (40-60) Cholesterol/HDL Ratio 2.8 Lipase 77U/L (73-393) Test 06/12/16 07:30 06/12/16 11:42 06/12/16 21:01 06/13/16 03:00 Glucose (Fingerstick) 70mg/dL (70-99) 112mg/dL (70-99) 104mg/dL (70-99) White Blood Count 8.8x10^3/uL (4.0-11.0) Red Blood Count 2.75x10^6/uL (3.50-5.40) Hemoglobin 8.0g/dL (12.0-15.5) Hematocrit 24.7% (36.0-47.0) Mean Corpuscular Volume 90fL (79-100) Mean Corpuscular Hemoglobin 29pg (25-35) Mean Corpuscular Hemoglobin Concent 32g/dL (31-37) Red Cell Distribution Width 15.3% (11.5-14.5) Platelet Count 144x10^3/uL (140-400) Neutrophils (%) (Auto) 68% (31-73) Lymphocytes (%) (Auto) 21% (24-48) Monocytes (%) (Auto) 9% (0-9) Eosinophils (%) (Auto) 2% (0-3) Basophils (%) (Auto) 0% (0-3) Neutrophils # (Auto) 5.9x10^3uL (1.8-7.7) Lymphocytes # (Auto) 1.8x10^3/uL (1.0-4.8) Monocytes # (Auto) 0.8x10^3/uL (0.0-1.1) Eosinophils # (Auto) 0.2x10^3/uL (0.0-0.7) Basophils # (Auto) 0.0x10^3/uL (0.0-0.2) Sodium Level 141mmol/L (136-145) Potassium Level 3.7mmol/L (3.5-5.1) Chloride Level 107mmol/L (98-107) Carbon Dioxide Level 24mmol/L (21-32) Anion Gap 10 (6-14) Blood Urea Nitrogen 46mg/dL (7-20) Creatinine 3.9mg/dL (0.6-1.0) Estimated GFR (Cockcroft-Gault) 13.7 Glucose Level 83mg/dL (70-99) Calcium Level 7.8mg/dL (8.5-10.1) Phosphorus Level 4.4mg/dL (2.6-4.7) Magnesium Level 1.7mg/dL (1.8-2.4) Albumin 1.9g/dL (3.4-5.0) Laboratory Tests Test 06/12/16 11:42 06/12/16 21:01 06/13/16 03:00 Glucose (Fingerstick) 112mg/dL (70-99) 104mg/dL (70-99) White Blood Count 8.8x10^3/uL (4.0-11.0) Red Blood Count 2.75x10^6/uL (3.50-5.40) Hemoglobin 8.0g/dL (12.0-15.5) Hematocrit 24.7% (36.0-47.0) Mean Corpuscular Volume 90fL (79-100) Mean Corpuscular Hemoglobin 29pg (25-35) Mean Corpuscular Hemoglobin Concent 32g/dL (31-37) Red Cell Distribution Width 15.3% (11.5-14.5) Platelet Count 144x10^3/uL (140-400) Neutrophils (%) (Auto) 68% (31-73) Lymphocytes (%) (Auto) 21% (24-48) Monocytes (%) (Auto) 9% (0-9) Eosinophils (%) (Auto) 2% (0-3) Basophils (%) (Auto) 0% (0-3) Neutrophils # (Auto) 5.9x10^3uL (1.8-7.7) Lymphocytes # (Auto) 1.8x10^3/uL (1.0-4.8) Monocytes # (Auto) 0.8x10^3/uL (0.0-1.1) Eosinophils # (Auto) 0.2x10^3/uL (0.0-0.7) Basophils # (Auto) 0.0x10^3/uL (0.0-0.2) Sodium Level 141mmol/L (136-145) Potassium Level 3.7mmol/L (3.5-5.1) Chloride Level 107mmol/L (98-107) Carbon Dioxide Level 24mmol/L (21-32) Anion Gap 10 (6-14) Blood Urea Nitrogen 46mg/dL (7-20) Creatinine 3.9mg/dL (0.6-1.0) Estimated GFR (Cockcroft-Gault) 13.7 Glucose Level 83mg/dL (70-99) Calcium Level 7.8mg/dL (8.5-10.1) Phosphorus Level 4.4mg/dL (2.6-4.7) Magnesium Level 1.7mg/dL (1.8-2.4) Albumin 1.9g/dL (3.4-5.0) Medications Current Medications Sodium Chloride (Iv Sodium Chloride 0.9% 500ml Bag) 500 ml @ 500 mls/hr 1X ONCE IV Last administered on 06/10/16 19:10; Start 06/10/16 at 18:45; Stop at 19:44; Status DC Hydromorphone HCl (Dilaudid) 0.5 mg PRN Q1HR PRN IV SEVERE PAIN Last administered on 06/10/16 19:00; Start 06/10/16 at 18:45; Stop 06/11/16 at 09:49 ; Status DC Ondansetron HCl (Zofran) 4 mg 1X ONCE IV Last administered on 06/10/16 18:57 ; Start 06/10/16 at 18:45; Stop 06/10/16 at 18:46; Status DC Diltiazem HCl 20 mg 20 mg 1X ONCE IVP Last administered on 06/10/16 19:02; Start 06/10/16 at 19:15; Stop 06/10/16 at 19:16; Status DC Diltiazem HCl/ Dextrose (Cardizem) 125 ml @ 0 mls/hr CONT PRN IV SEE I/O RECORD Last administered on 06/11/16 13:05; Start 06/10/16 at 18:45; Stop 06/12 at 14:00; Status DC Ondansetron HCl (Zofran) 4 mg PRN Q8HRS PRN IV NAUSEA/VOMITING; Start 06/10/16 at 19:45; Stop 06/11/16 at 19:44; Status DC Morphine Sulfate 2 mg 2 mg PRN Q2HR PRN IV PAIN; Start 06/10/16 at 19:45; Stop 06/11/16 at 09:49; Status DC Sodium Chloride 1,000 ml @ 125 mls/hr 1X ONCE IV Last administered on 22:21; Start 06/10/16 at 22:00; Stop 06/11/16 at 05:59; Status DC Sodium Chloride (Iv Sodium Chloride 0.9% 1000ml Bag) 1,000 ml @ 75 mls/hr [id number] IV Last administered on 06/11/16 08:40; Start 06/11/16 at 09:00; Stop 06/11/16 at 13:38; Status DC Insulin Aspart (Novolog) 0-5 UNITS TIDWMEALS SQ ; Start 06/11/16 at 12:00 Dextrose (Dextrose 50%-Water Syringe) 12.5 gm PRN Q15MIN PRN IV SEE COMMENTS; Start 06/11/16 at 08:30 Albuterol Sulfate (Ventolin Neb Soln) 2.5 mg PRN Q4HRS PRN NEB SHORTNESS OF BREATH Last administered on 06/11/16 08:45; Start 06/11/16 at 08:30 Fluticasone Propionate 1 spray 1 spray DAILY NS Last administered on 06/13/16 08:50; Start 06/11/16 at 09:00 Magnesium Sulfate/ Dextrose 100 ml @ 100 mls/hr 1X ONCE IV Last administered on 06/11/16 14:18; Start 06/11/16 at 10:30; Stop 06/11/16 at 11:29; Status DC Magnesium Sulfate/ Dextrose 50 ml @ 25 mls/hr 1X ONCE IV Last administered on 06/11/16 12:24; Start 06/11/16 at 11:30; Stop 06/11/16 at 13:29; Status DC Sodium Chloride (Iv Sodium Chloride 0.45%) 1,000 ml @ 125 mls/hr 1X ONCE IV Last administered on 06/11/16 17:10; Start 06/11/16 at 13:45; Stop 06/11/16 at 21:44; Status DC Regadenoson (Lexiscan) 0.4 mg 1X ONCE IV Last administered on 06/12/16 08:27 ; Start 06/12/16 at 08:00; Stop 06/12/16 at 08:01; Status DC Albuterol Sulfate (Ventolin Neb Soln) 2.5 mg RTQID NEB Last administered on 08:00; Start 06/12/16 at 09:00 Diltiazem HCl 120 mg 120 mg DAILY PO Last administered on 06/13/16 08:50; Start 06/12/16 at 13:00 Sodium Chloride 1,000 ml @ 125 mls/hr Q8H IV ; Start 06/12/16 at 16:00; Stop at 16:04; Status DC Magnesium Sulfate/ Dextrose (Magnesium Sulfate PREMIX 2GM) 50 ml @ 25 mls/hr PRN DAILY PRN IV for Mag < 1.7 on am labs; Start 06/12/16 at 16:00 Darbepoetin Viral 60 mcg 60 mcg [id number] SQ Last administered on 06/12/16 21:03 ; Start 06/12/16 at 21:00 Sodium Chloride (Iv Sodium Chloride 0.45%) 1,000 ml @ 125 mls/hr Q8H IV Last administered on 06/13/16 08:49; Start 06/12/16 at 16:04 Active Scripts Active Stout 5-325 Tablet (Acetaminophen/Hydrocodone Bitart) 1 Each Tablet 1 Tab PO PRN Q6HRS PRN Zithromax (Azithromycin) 250 Mg Tablet 1 Pkg PO UD Reglan (Metoclopramide Hcl) 10 Mg Tablet 1 Tab PO TID PRN Reported Multivitamins (Multivitamin) 1 Each Tablet 1 Tab PO DAILY Diovan Hct 80-12.5 Mg Tablet (Valsartan/Hydrochlorothiazide) 1 Each Tablet 1 Tab PO DAILY Proair Hfa Inhaler (Albuterol Sulfate) 8.5 Gm Hfa.aer.ad 2 Puff INH QID PRN Fluticasone Propionate Nasal [place] (Fluticasone Propionate) 16 Gm [place].susp 1 [place] NS DAILY Furosemide 40 Mg Tablet 1 Tab PO DAILY Allopurinol 300 Mg Tablet 300 Tab PO DAILY Vitals/I & O Vital Sign - Last 24 Hours 06/12/16 06/12/16 06/12/16 06/12/16 13:09 15:01 16:11 19:35 Temp 98.3 98.1 98.3 98.1 Pulse 72 89 71 Resp 20 20 B/P 116/59 116/59 113/53 Pulse Ox 96 99 100 O2 Delivery Nasal Cannula Nasal Cannula O2 Flow Rate 2.0 2.0 2.0 06/12/16 06/12/16 06/12/16 06/13/16 20:00 21:04 23:45 03:45 Temp 98.0 98.6 98.0 98.6 Pulse 75 75 Resp 16 16 B/P 117/48 120/58 Pulse Ox 98 98 97 O2 Delivery Nasal Cannula Nasal Cannula Nasal Cannula Nasal Cannula O2 Flow Rate 2.0 2.0 2.0 2.0 06/13/16 06/13/16 06/13/16 07:00 08:00 08:50 Temp 98.1 98.1 Pulse 75 75 Resp 20 B/P 117/49 117/49 Pulse Ox 100 O2 Delivery Nasal Cannula Nasal Cannula O2 Flow Rate 2.0 2.0 Intake and Output 06/12/16 06/12/16 06/13/16 14:59 22:59 06:59 Intake Total 860 ml 950 ml 1700 ml Output Total 1010 ml 100 ml Balance 860 ml -60 ml 1600 ml ALIDA MAI MD Jun 13, 2016 11:11
--- NOTE | 2016-06-13 11:27 | PDOC ---
SURGICAL PROGRESS NOTE Subjective continue to do well with normal Gi function as she take po without problems. Diet advanced. Abd soft and non-tender. Will need treatment of medical problem prior to any surgery. The surgical repair will be quite and extensive operation. Vital Signs Vital Signs Date Time Temp Pulse Resp B/P Pulse Ox O2 Delivery O2 Flow Rate FiO2 06/13/16 08:50 75 117/49 06/13/16 08:00 Nasal Cannula 2.0 06/13/16 07:00 98.1 20 100 98.1 I&O Intake and Output 06/13/16 07:00 Intake Total 3510 ml Output Total 1110 ml Balance 2400 ml Intake Oral 2010 ml IV Total 1500 ml Output Urine Total 810 ml Urine/Stool Mix 300 ml # Voids 1 Labs Laboratory Tests Test 06/11/16 11:59 06/11/16 16:45 06/11/16 20:56 06/12/16 06:43 Glucose (Fingerstick) 79mg/dL (70-99) 77mg/dL (70-99) 80mg/dL (70-99) White Blood Count 10.1x10^3/uL (4.0-11.0) Red Blood Count 3.12x10^6/uL (3.50-5.40) Hemoglobin 9.0g/dL (12.0-15.5) Hematocrit 28.2% (36.0-47.0) Mean Corpuscular Volume 91fL (79-100) Mean Corpuscular Hemoglobin 29pg (25-35) Mean Corpuscular Hemoglobin Concent 32g/dL (31-37) Red Cell Distribution Width 15.5% (11.5-14.5) Platelet Count 165x10^3/uL (140-400) Neutrophils (%) (Auto) 76% (31-73) Lymphocytes (%) (Auto) 15% (24-48) Monocytes (%) (Auto) 8% (0-9) Eosinophils (%) (Auto) 2% (0-3) Basophils (%) (Auto) 0% (0-3) Neutrophils # (Auto) 7.6x10^3uL (1.8-7.7) Lymphocytes # (Auto) 1.5x10^3/uL (1.0-4.8) Monocytes # (Auto) 0.8x10^3/uL (0.0-1.1) Eosinophils # (Auto) 0.2x10^3/uL (0.0-0.7) Basophils # (Auto) 0.0x10^3/uL (0.0-0.2) Reticulocyte Count (auto) 2.9% (0.5-2.5) Prothrombin Time 14.4SEC (11.7-14.0) Prothromb Time International Ratio 1.2 (0.8-1.1) Sodium Level 145mmol/L (136-145) Potassium Level 4.1mmol/L (3.5-5.1) Chloride Level 109mmol/L (98-107) Carbon Dioxide Level 26mmol/L (21-32) Anion Gap 10 (6-14) Blood Urea Nitrogen 47mg/dL (7-20) Creatinine 3.7mg/dL (0.6-1.0) Estimated GFR (Cockcroft-Gault) 14.6 BUN/Creatinine Ratio 13 (6-20) Glucose Level 75mg/dL (70-99) Calcium Level 8.0mg/dL (8.5-10.1) Magnesium Level 2.1mg/dL (1.8-2.4) Iron Level 12ug/dL (50-170) Total Iron Binding Capacity 136ug/dL (250-450) Iron Saturation 9% (15-34) Ferritin 423ng/mL (8-252) Total Bilirubin 0.3mg/dL (0.2-1.0) Aspartate Amino Transf (AST/SGOT) 14U/L (15-37) Alanine Aminotransferase (ALT/SGPT) 11U/L (14-59) Alkaline Phosphatase 54U/L (46-116) Total Protein 5.5g/dL (6.4-8.2) Albumin 2.1g/dL (3.4-5.0) Albumin/Globulin Ratio 0.6 (1.0-1.7) Triglycerides Level 97mg/dL (0-150) Cholesterol Level 146mg/dL (0-200) LDL Cholesterol, Calculated 75mg/dL (0-100) VLDL Cholesterol, Calculated 19mg/dL (0-40) Non-HDL Cholesterol Calculated 94mg/dL (0-129) HDL Cholesterol 52mg/dL (40-60) Cholesterol/HDL Ratio 2.8 Lipase 77U/L (73-393) Test 06/12/16 07:30 06/12/16 11:42 06/12/16 21:01 06/13/16 03:00 Glucose (Fingerstick) 70mg/dL (70-99) 112mg/dL (70-99) 104mg/dL (70-99) White Blood Count 8.8x10^3/uL (4.0-11.0) Red Blood Count 2.75x10^6/uL (3.50-5.40) Hemoglobin 8.0g/dL (12.0-15.5) Hematocrit 24.7% (36.0-47.0) Mean Corpuscular Volume 90fL (79-100) Mean Corpuscular Hemoglobin 29pg (25-35) Mean Corpuscular Hemoglobin Concent 32g/dL (31-37) Red Cell Distribution Width 15.3% (11.5-14.5) Platelet Count 144x10^3/uL (140-400) Neutrophils (%) (Auto) 68% (31-73) Lymphocytes (%) (Auto) 21% (24-48) Monocytes (%) (Auto) 9% (0-9) Eosinophils (%) (Auto) 2% (0-3) Basophils (%) (Auto) 0% (0-3) Neutrophils # (Auto) 5.9x10^3uL (1.8-7.7) Lymphocytes # (Auto) 1.8x10^3/uL (1.0-4.8) Monocytes # (Auto) 0.8x10^3/uL (0.0-1.1) Eosinophils # (Auto) 0.2x10^3/uL (0.0-0.7) Basophils # (Auto) 0.0x10^3/uL (0.0-0.2) Sodium Level 141mmol/L (136-145) Potassium Level 3.7mmol/L (3.5-5.1) Chloride Level 107mmol/L (98-107) Carbon Dioxide Level 24mmol/L (21-32) Anion Gap 10 (6-14) Blood Urea Nitrogen 46mg/dL (7-20) Creatinine 3.9mg/dL (0.6-1.0) Estimated GFR (Cockcroft-Gault) 13.7 Glucose Level 83mg/dL (70-99) Calcium Level 7.8mg/dL (8.5-10.1) Phosphorus Level 4.4mg/dL (2.6-4.7) Magnesium Level 1.7mg/dL (1.8-2.4) Albumin 1.9g/dL (3.4-5.0) Laboratory Tests Test 06/12/16 11:42 06/12/16 21:01 06/13/16 03:00 Glucose (Fingerstick) 112mg/dL (70-99) 104mg/dL (70-99) White Blood Count 8.8x10^3/uL (4.0-11.0) Red Blood Count 2.75x10^6/uL (3.50-5.40) Hemoglobin 8.0g/dL (12.0-15.5) Hematocrit 24.7% (36.0-47.0) Mean Corpuscular Volume 90fL (79-100) Mean Corpuscular Hemoglobin 29pg (25-35) Mean Corpuscular Hemoglobin Concent 32g/dL (31-37) Red Cell Distribution Width 15.3% (11.5-14.5) Platelet Count 144x10^3/uL (140-400) Neutrophils (%) (Auto) 68% (31-73) Lymphocytes (%) (Auto) 21% (24-48) Monocytes (%) (Auto) 9% (0-9) Eosinophils (%) (Auto) 2% (0-3) Basophils (%) (Auto) 0% (0-3) Neutrophils # (Auto) 5.9x10^3uL (1.8-7.7) Lymphocytes # (Auto) 1.8x10^3/uL (1.0-4.8) Monocytes # (Auto) 0.8x10^3/uL (0.0-1.1) Eosinophils # (Auto) 0.2x10^3/uL (0.0-0.7) Basophils # (Auto) 0.0x10^3/uL (0.0-0.2) Sodium Level 141mmol/L (136-145) Potassium Level 3.7mmol/L (3.5-5.1) Chloride Level 107mmol/L (98-107) Carbon Dioxide Level 24mmol/L (21-32) Anion Gap 10 (6-14) Blood Urea Nitrogen 46mg/dL (7-20) Creatinine 3.9mg/dL (0.6-1.0) Estimated GFR (Cockcroft-Gault) 13.7 Glucose Level 83mg/dL (70-99) Calcium Level 7.8mg/dL (8.5-10.1) Phosphorus Level 4.4mg/dL (2.6-4.7) Magnesium Level 1.7mg/dL (1.8-2.4) Albumin 1.9g/dL (3.4-5.0) Problem List Problems Medical Problems: (1) Abdominal pain Status: Acute (2) Atrial flutter Status: Acute Problems: PRATEEK JOLLY MD Jun 13, 2016 11:27
--- NOTE | 2016-06-13 11:44 | PDOC ---
Renal-Progress Notes Subjective Notes Notes NO NEW COMPLAINTS History of Present Illness Hx of present illness STABLE Vitals Vitals Vital Signs Date Time Temp Pulse Resp B/P Pulse Ox O2 Delivery O2 Flow Rate FiO2 06/13/16 08:50 75 117/49 06/13/16 08:00 Nasal Cannula 2.0 06/13/16 07:00 98.1 20 100 98.1 Weight Weight [ ] I.O. Intake and Output Intake and Output 06/13/16 06:59 Intake Total 3510 ml Output Total 1110 ml Balance 2400 ml Intake Oral 2010 ml IV Total 1500 ml Output Urine Total 810 ml Urine/Stool Mix 300 ml # Voids 1 Labs Labs Laboratory Tests Test 06/12/16 21:01 06/13/16 03:00 Glucose (Fingerstick) 104mg/dL (70-99) White Blood Count 8.8x10^3/uL (4.0-11.0) Red Blood Count 2.75x10^6/uL (3.50-5.40) Hemoglobin 8.0g/dL (12.0-15.5) Hematocrit 24.7% (36.0-47.0) Mean Corpuscular Volume 90fL (79-100) Mean Corpuscular Hemoglobin 29pg (25-35) Mean Corpuscular Hemoglobin Concent 32g/dL (31-37) Red Cell Distribution Width 15.3% (11.5-14.5) Platelet Count 144x10^3/uL (140-400) Neutrophils (%) (Auto) 68% (31-73) Lymphocytes (%) (Auto) 21% (24-48) Monocytes (%) (Auto) 9% (0-9) Eosinophils (%) (Auto) 2% (0-3) Basophils (%) (Auto) 0% (0-3) Neutrophils # (Auto) 5.9x10^3uL (1.8-7.7) Lymphocytes # (Auto) 1.8x10^3/uL (1.0-4.8) Monocytes # (Auto) 0.8x10^3/uL (0.0-1.1) Eosinophils # (Auto) 0.2x10^3/uL (0.0-0.7) Basophils # (Auto) 0.0x10^3/uL (0.0-0.2) Sodium Level 141mmol/L (136-145) Potassium Level 3.7mmol/L (3.5-5.1) Chloride Level 107mmol/L (98-107) Carbon Dioxide Level 24mmol/L (21-32) Anion Gap 10 (6-14) Blood Urea Nitrogen 46mg/dL (7-20) Creatinine 3.9mg/dL (0.6-1.0) Estimated GFR (Cockcroft-Gault) 13.7 Glucose Level 83mg/dL (70-99) Calcium Level 7.8mg/dL (8.5-10.1) Phosphorus Level 4.4mg/dL (2.6-4.7) Magnesium Level 1.7mg/dL (1.8-2.4) Albumin 1.9g/dL (3.4-5.0) Physical Exam Musculoskeletal: Osteoarthritis Assessment Assessment IMP BERNY-CR AT 3.9-ATN CKD STAGE 3 WITH CR OF 2.4 DEHYDRATIONI ABD PAIN WITH PROB PARTIAL SBO PLAN CONT WITH IVF'S LABS IN AM CHELSIE VAZQUEZ MD Jun 13, 2016 11:44
[2016-06-13 15:00] VITALS: BP 116/50
[2016-06-13 19:25] VITALS: BP 133/64
[2016-06-13 21:08] LABS: UR PROTEIN RD 303.2 mg/dL (Not Estab.)
[2016-06-13 23:35] VITALS: BP 135/53
[2016-06-14] MEDS: IV 1/2 NORMAL SALINE 1,000 ML IV SCH ×3 (00:17→16:44)
[2016-06-14 03:30] VITALS: BP 118/51
[2016-06-14 05:15] LABS: ALBUMIN 1.9 g/dL (3.4-5.0); CALCIUM 7.9 mg/dL (8.5-10.1); CREATININE 3.7 mg/dL (0.6-1.0); GFR 14.6; PHOSPHORUS 4.3 mg/dL (2.6-4.7); POTASSIUM 3.8 mmol/L (3.5-5.1)
[2016-06-14 07:00] VITALS: BP 131/59
[2016-06-14] MEDS: DILTIAZEM HCL 120 MG CAP.ER.24H PO SCH (07:33)
[2016-06-14] MEDS: FLUTICASONE 50MCG/NASAL SPRAY 16GM BOTTLE. NS SCH (07:34)
[2016-06-14] MEDS: ALBUTEROL SULFATE 2.5 MG/3 ML NEBU. NEB SCH ×4 (08:00→19:50)
--- NOTE | 2016-06-14 10:22 | PDOC ---
Renal-Progress Notes Subjective Notes Notes NONE History of Present Illness Hx of present illness STABLE Vitals Vitals Vital Signs Date Time Temp Pulse Resp B/P Pulse Ox O2 Delivery O2 Flow Rate FiO2 06/14/16 08:19 Nasal Cannula 2.0 06/14/16 08:01 98 06/14/16 07:33 81 131/59 06/14/16 07:00 98.1 18 98.1 Weight Weight [ ] I.O. Intake and Output Intake and Output 06/14/16 07:00 Intake Total 1000 ml Output Total 1000 ml Balance 0 ml Intake Oral 200 ml Blood Product IV Normal Saline Flush 800 ml Output Urine Total 1000 ml Labs Labs Laboratory Tests Test 06/13/16 20:33 06/14/16 04:00 Glucose (Fingerstick) 100mg/dL (70-99) Sodium Level 140mmol/L (136-145) Potassium Level 3.8mmol/L (3.5-5.1) Chloride Level 106mmol/L (98-107) Carbon Dioxide Level 25mmol/L (21-32) Anion Gap 9 (6-14) Blood Urea Nitrogen 44mg/dL (7-20) Creatinine 3.7mg/dL (0.6-1.0) Estimated GFR (Cockcroft-Gault) 14.6 Glucose Level 90mg/dL (70-99) Calcium Level 7.9mg/dL (8.5-10.1) Phosphorus Level 4.3mg/dL (2.6-4.7) Magnesium Level 1.8mg/dL (1.8-2.4) Albumin 1.9g/dL (3.4-5.0) Physical Exam Musculoskeletal: Osteoarthritis Assessment Assessment IMP BERNY-ATN-CR AT 3.9 TO 3.7 CKD STAGE 3 WITH CR OF 2.4 DEHYDRATION ABD PAIN WITH PROB PARTIAL SBO PLAN CONT WITH IVF'S LABS IN AM CHELSIE VAZQUEZ MD Jun 14, 2016 10:22
[2016-06-14 11:00] VITALS: BP 129/52
--- NOTE | 2016-06-14 11:25 | PDOC ---
SURGICAL PROGRESS NOTE Subjective Continues to do well without GI problems. Has normal GI function and flatus. No abd symptoms or discomfort. Vital Signs Vital Signs Date Time Temp Pulse Resp B/P Pulse Ox O2 Delivery O2 Flow Rate FiO2 06/14/16 08:19 Nasal Cannula 2.0 06/14/16 08:01 98 06/14/16 07:33 81 131/59 06/14/16 07:00 98.1 18 98.1 I&O Intake and Output 06/14/16 07:00 Intake Total 1000 ml Output Total 1000 ml Balance 0 ml Intake Oral 200 ml Blood Product IV Normal Saline Flush 800 ml Output Urine Total 1000 ml Labs Laboratory Tests Test 06/12/16 11:42 06/12/16 21:01 06/12/16 22:00 06/13/16 03:00 Glucose (Fingerstick) 112mg/dL (70-99) 104mg/dL (70-99) Urine Protein 303.2mg/dL (Not Estab.) Urine Creatinine 189.0mg/dL (Not Estab.) Urine Protein/Creatinine Ratio 1604mg/g creat (0-200) White Blood Count 8.8x10^3/uL (4.0-11.0) Red Blood Count 2.75x10^6/uL (3.50-5.40) Hemoglobin 8.0g/dL (12.0-15.5) Hematocrit 24.7% (36.0-47.0) Mean Corpuscular Volume 90fL (79-100) Mean Corpuscular Hemoglobin 29pg (25-35) Mean Corpuscular Hemoglobin Concent 32g/dL (31-37) Red Cell Distribution Width 15.3% (11.5-14.5) Platelet Count 144x10^3/uL (140-400) Neutrophils (%) (Auto) 68% (31-73) Lymphocytes (%) (Auto) 21% (24-48) Monocytes (%) (Auto) 9% (0-9) Eosinophils (%) (Auto) 2% (0-3) Basophils (%) (Auto) 0% (0-3) Neutrophils # (Auto) 5.9x10^3uL (1.8-7.7) Lymphocytes # (Auto) 1.8x10^3/uL (1.0-4.8) Monocytes # (Auto) 0.8x10^3/uL (0.0-1.1) Eosinophils # (Auto) 0.2x10^3/uL (0.0-0.7) Basophils # (Auto) 0.0x10^3/uL (0.0-0.2) Sodium Level 141mmol/L (136-145) Potassium Level 3.7mmol/L (3.5-5.1) Chloride Level 107mmol/L (98-107) Carbon Dioxide Level 24mmol/L (21-32) Anion Gap 10 (6-14) Blood Urea Nitrogen 46mg/dL (7-20) Creatinine 3.9mg/dL (0.6-1.0) Estimated GFR (Cockcroft-Gault) 13.7 Glucose Level 83mg/dL (70-99) Calcium Level 7.8mg/dL (8.5-10.1) Phosphorus Level 4.4mg/dL (2.6-4.7) Magnesium Level 1.7mg/dL (1.8-2.4) Albumin 1.9g/dL (3.4-5.0) Test 06/13/16 08:39 06/13/16 20:33 06/14/16 04:00 Glucose (Fingerstick) 86mg/dL (70-99) 100mg/dL (70-99) Sodium Level 140mmol/L (136-145) Potassium Level 3.8mmol/L (3.5-5.1) Chloride Level 106mmol/L (98-107) Carbon Dioxide Level 25mmol/L (21-32) Anion Gap 9 (6-14) Blood Urea Nitrogen 44mg/dL (7-20) Creatinine 3.7mg/dL (0.6-1.0) Estimated GFR (Cockcroft-Gault) 14.6 Glucose Level 90mg/dL (70-99) Calcium Level 7.9mg/dL (8.5-10.1) Phosphorus Level 4.3mg/dL (2.6-4.7) Magnesium Level 1.8mg/dL (1.8-2.4) Albumin 1.9g/dL (3.4-5.0) Laboratory Tests Test 06/13/16 20:33 06/14/16 04:00 Glucose (Fingerstick) 100mg/dL (70-99) Sodium Level 140mmol/L (136-145) Potassium Level 3.8mmol/L (3.5-5.1) Chloride Level 106mmol/L (98-107) Carbon Dioxide Level 25mmol/L (21-32) Anion Gap 9 (6-14) Blood Urea Nitrogen 44mg/dL (7-20) Creatinine 3.7mg/dL (0.6-1.0) Estimated GFR (Cockcroft-Gault) 14.6 Glucose Level 90mg/dL (70-99) Calcium Level 7.9mg/dL (8.5-10.1) Phosphorus Level 4.3mg/dL (2.6-4.7) Magnesium Level 1.8mg/dL (1.8-2.4) Albumin 1.9g/dL (3.4-5.0) Problem List Problems Medical Problems: (1) Abdominal pain Status: Acute (2) Atrial flutter Status: Acute Problems: PRATEEK JOLLY MD Jun 14, 2016 11:25
--- NOTE | 2016-06-14 11:36 | PDOC ---
PROGRESS NOTES Subjective Subjective Patient without complaint, denies pain. Objective Objective Vital Signs Date Time Temp Pulse Resp B/P Pulse Ox O2 Delivery O2 Flow Rate FiO2 06/14/16 08:19 Nasal Cannula 2.0 06/14/16 08:01 98 06/14/16 07:33 81 131/59 06/14/16 07:00 98.1 18 98.1 Intake and Output 06/14/16 07:00 Intake Total 1000 ml Output Total 1000 ml Balance 0 ml Intake Oral 200 ml Blood Product IV Normal Saline Flush 800 ml Output Urine Total 1000 ml Physical Exam Abdomen: Normal bowel sounds, Soft, No tenderness, Other (large ventral hernia present, soft and NT) Heart: Regular rate Extremities: Other (chronic edema bilateral LE's) General: Alert, Oriented X3, No acute distress Lungs: Clear to auscultation Assessment Assessment Problems Medical Problems: (1) Abdominal pain Status: Acute (2) Atrial flutter Status: Acute Plan Plan of Care 1. Afib with RVR - maintaining sinus rhythm on po Cardizem, continue. 2. ventral hernia with possible partial SBO - obstruction appears resolved, exam benign, tolerating regular diet. Dr Villavicencio plans further evaluation as outpatient after discharge. 3. acute renal failure with CKD - lab stable but not much improvement yet, continue IVF as per Dr Majano. 4. HTN - controlled with present meds. 5. morbid obesity with debility - continue therapies. Comment Review of Relevant I have reviewed the following items brent (where applicable) has been applied. Labs Laboratory Tests Test 06/12/16 11:42 06/12/16 21:01 06/12/16 22:00 06/13/16 03:00 Glucose (Fingerstick) 112mg/dL (70-99) 104mg/dL (70-99) Urine Protein 303.2mg/dL (Not Estab.) Urine Creatinine 189.0mg/dL (Not Estab.) Urine Protein/Creatinine Ratio 1604mg/g creat (0-200) White Blood Count 8.8x10^3/uL (4.0-11.0) Red Blood Count 2.75x10^6/uL (3.50-5.40) Hemoglobin 8.0g/dL (12.0-15.5) Hematocrit 24.7% (36.0-47.0) Mean Corpuscular Volume 90fL (79-100) Mean Corpuscular Hemoglobin 29pg (25-35) Mean Corpuscular Hemoglobin Concent 32g/dL (31-37) Red Cell Distribution Width 15.3% (11.5-14.5) Platelet Count 144x10^3/uL (140-400) Neutrophils (%) (Auto) 68% (31-73) Lymphocytes (%) (Auto) 21% (24-48) Monocytes (%) (Auto) 9% (0-9) Eosinophils (%) (Auto) 2% (0-3) Basophils (%) (Auto) 0% (0-3) Neutrophils # (Auto) 5.9x10^3uL (1.8-7.7) Lymphocytes # (Auto) 1.8x10^3/uL (1.0-4.8) Monocytes # (Auto) 0.8x10^3/uL (0.0-1.1) Eosinophils # (Auto) 0.2x10^3/uL (0.0-0.7) Basophils # (Auto) 0.0x10^3/uL (0.0-0.2) Sodium Level 141mmol/L (136-145) Potassium Level 3.7mmol/L (3.5-5.1) Chloride Level 107mmol/L (98-107) Carbon Dioxide Level 24mmol/L (21-32) Anion Gap 10 (6-14) Blood Urea Nitrogen 46mg/dL (7-20) Creatinine 3.9mg/dL (0.6-1.0) Estimated GFR (Cockcroft-Gault) 13.7 Glucose Level 83mg/dL (70-99) Calcium Level 7.8mg/dL (8.5-10.1) Phosphorus Level 4.4mg/dL (2.6-4.7) Magnesium Level 1.7mg/dL (1.8-2.4) Albumin 1.9g/dL (3.4-5.0) Test 06/13/16 08:39 06/13/16 20:33 06/14/16 04:00 Glucose (Fingerstick) 86mg/dL (70-99) 100mg/dL (70-99) Sodium Level 140mmol/L (136-145) Potassium Level 3.8mmol/L (3.5-5.1) Chloride Level 106mmol/L (98-107) Carbon Dioxide Level 25mmol/L (21-32) Anion Gap 9 (6-14) Blood Urea Nitrogen 44mg/dL (7-20) Creatinine 3.7mg/dL (0.6-1.0) Estimated GFR (Cockcroft-Gault) 14.6 Glucose Level 90mg/dL (70-99) Calcium Level 7.9mg/dL (8.5-10.1) Phosphorus Level 4.3mg/dL (2.6-4.7) Magnesium Level 1.8mg/dL (1.8-2.4) Albumin 1.9g/dL (3.4-5.0) Laboratory Tests Test 06/13/16 20:33 06/14/16 04:00 Glucose (Fingerstick) 100mg/dL (70-99) Sodium Level 140mmol/L (136-145) Potassium Level 3.8mmol/L (3.5-5.1) Chloride Level 106mmol/L (98-107) Carbon Dioxide Level 25mmol/L (21-32) Anion Gap 9 (6-14) Blood Urea Nitrogen 44mg/dL (7-20) Creatinine 3.7mg/dL (0.6-1.0) Estimated GFR (Cockcroft-Gault) 14.6 Glucose Level 90mg/dL (70-99) Calcium Level 7.9mg/dL (8.5-10.1) Phosphorus Level 4.3mg/dL (2.6-4.7) Magnesium Level 1.8mg/dL (1.8-2.4) Albumin 1.9g/dL (3.4-5.0) Medications Current Medications Sodium Chloride (Iv Sodium Chloride 0.9% 500ml Bag) 500 ml @ 500 mls/hr 1X ONCE IV Last administered on 06/10/16 19:10; Start 06/10/16 at 18:45; Stop at 19:44; Status DC Hydromorphone HCl (Dilaudid) 0.5 mg PRN Q1HR PRN IV SEVERE PAIN Last administered on 06/10/16 19:00; Start 06/10/16 at 18:45; Stop 06/11/16 at 09:49 ; Status DC Ondansetron HCl (Zofran) 4 mg 1X ONCE IV Last administered on 06/10/16 18:57 ; Start 06/10/16 at 18:45; Stop 06/10/16 at 18:46; Status DC Diltiazem HCl 20 mg 20 mg 1X ONCE IVP Last administered on 06/10/16 19:02; Start 06/10/16 at 19:15; Stop 06/10/16 at 19:16; Status DC Diltiazem HCl/ Dextrose (Cardizem) 125 ml @ 0 mls/hr CONT PRN IV SEE I/O RECORD Last administered on 06/11/16 13:05; Start 06/10/16 at 18:45; Stop 06/12 at 14:00; Status DC Ondansetron HCl (Zofran) 4 mg PRN Q8HRS PRN IV NAUSEA/VOMITING; Start 06/10/16 at 19:45; Stop 06/11/16 at 19:44; Status DC Morphine Sulfate 2 mg 2 mg PRN Q2HR PRN IV PAIN; Start 06/10/16 at 19:45; Stop 06/11/16 at 09:49; Status DC Sodium Chloride 1,000 ml @ 125 mls/hr 1X ONCE IV Last administered on 22:21; Start 06/10/16 at 22:00; Stop 06/11/16 at 05:59; Status DC Sodium Chloride (Iv Sodium Chloride 0.9% 1000ml Bag) 1,000 ml @ 75 mls/hr [id number] IV Last administered on 06/11/16 08:40; Start 06/11/16 at 09:00; Stop 06/11/16 at 13:38; Status DC Insulin Aspart (Novolog) 0-5 UNITS TIDWMEALS SQ ; Start 06/11/16 at 12:00; Stop 06/13/16 at 11:08; Status DC Dextrose (Dextrose 50%-Water Syringe) 12.5 gm PRN Q15MIN PRN IV SEE COMMENTS; Start 06/11/16 at 08:30 Albuterol Sulfate (Ventolin Neb Soln) 2.5 mg PRN Q4HRS PRN NEB SHORTNESS OF BREATH Last administered on 06/11/16 08:45; Start 06/11/16 at 08:30 Fluticasone Propionate 1 spray 1 spray DAILY NS Last administered on 06/14/16 07:34; Start 06/11/16 at 09:00 Magnesium Sulfate/ Dextrose 100 ml @ 100 mls/hr 1X ONCE IV Last administered on 06/11/16 14:18; Start 06/11/16 at 10:30; Stop 06/11/16 at 11:29; Status DC Magnesium Sulfate/ Dextrose 50 ml @ 25 mls/hr 1X ONCE IV Last administered on 06/11/16 12:24; Start 06/11/16 at 11:30; Stop 06/11/16 at 13:29; Status DC Sodium Chloride (Iv Sodium Chloride 0.45%) 1,000 ml @ 125 mls/hr 1X ONCE IV Last administered on 06/11/16 17:10; Start 06/11/16 at 13:45; Stop 06/11/16 at 21:44; Status DC Regadenoson (Lexiscan) 0.4 mg 1X ONCE IV Last administered on 06/12/16 08:27 ; Start 06/12/16 at 08:00; Stop 06/12/16 at 08:01; Status DC Albuterol Sulfate (Ventolin Neb Soln) 2.5 mg RTQID NEB Last administered on 08:00; Start 06/12/16 at 09:00 Diltiazem HCl 120 mg 120 mg DAILY PO Last administered on 06/14/16 07:33; Start 06/12/16 at 13:00 Sodium Chloride 1,000 ml @ 125 mls/hr Q8H IV ; Start 06/12/16 at 16:00; Stop at 16:04; Status DC Magnesium Sulfate/ Dextrose (Magnesium Sulfate PREMIX 2GM) 50 ml @ 25 mls/hr PRN DAILY PRN IV for Mag < 1.7 on am labs; Start 06/12/16 at 16:00 Darbepoetin Viral 60 mcg 60 mcg WEEKLYHS SQ Last administered on 06/12/16 21:03 ; Start 06/12/16 at 21:00 Sodium Chloride (Iv Sodium Chloride 0.45%) 1,000 ml @ 125 mls/hr Q8H IV Last administered on 06/14/16 07:34; Start 06/12/16 at 16:04 Active Scripts Active Unity 5-325 Tablet (Acetaminophen/Hydrocodone Bitart) 1 Each Tablet 1 Tab PO PRN Q6HRS PRN Zithromax (Azithromycin) 250 Mg Tablet 1 Pkg PO UD Reglan (Metoclopramide Hcl) 10 Mg Tablet 1 Tab PO TID PRN Reported Multivitamins (Multivitamin) 1 Each Tablet 1 Tab PO DAILY Diovan Hct 80-12.5 Mg Tablet (Valsartan/Hydrochlorothiazide) 1 Each Tablet 1 Tab PO DAILY Proair Hfa Inhaler (Albuterol Sulfate) 8.5 Gm Hfa.aer.ad 2 Puff INH QID PRN Fluticasone Propionate Nasal [place] (Fluticasone Propionate) 16 Gm [place].susp 1 [place] NS DAILY Furosemide 40 Mg Tablet 1 Tab PO DAILY Allopurinol 300 Mg Tablet 300 Tab PO DAILY Vitals/I & O Vital Sign - Last 24 Hours 06/13/16 06/13/16 06/13/16 06/13/16 11:59 15:00 16:44 19:24 Temp 98.0 98.0 Pulse 75 Resp 19 B/P 116/50 Pulse Ox 99 100 O2 Delivery Nasal Cannula Nasal Cannula Nasal Cannula Nasal Cannula O2 Flow Rate 2.0 2.0 2.0 2.0 06/13/16 06/13/16 06/13/16 06/14/16 19:25 20:00 23:35 03:30 Temp 97.7 98.5 98.8 97.7 98.5 98.8 Pulse 72 82 78 Resp 16 14 16 B/P 133/64 135/53 118/51 Pulse Ox 97 98 98 O2 Delivery Nasal Cannula Nasal Cannula Nasal Cannula Nasal Cannula O2 Flow Rate 2.0 2.0 2.0 2.0 06/14/16 06/14/16 06/14/16 06/14/16 07:00 07:33 08:01 08:19 Temp 98.1 98.1 Pulse 81 81 Resp 18 B/P 131/59 131/59 Pulse Ox 98 O2 Delivery Nasal Cannula Nasal Cannula Nasal Cannula O2 Flow Rate 2.0 2.0 2.0 Intake and Output 06/13/16 06/13/16 06/14/16 15:00 23:00 07:00 Intake Total 800 ml 200 ml Output Total 1000 ml Balance 800 ml -800 ml ALIDA MAI MD Jun 14, 2016 11:36
[2016-06-14 15:00] VITALS: BP 135/52
[2016-06-14 19:30] VITALS: BP 118/46
[2016-06-14 23:00] VITALS: BP 143/54
[2016-06-15] MEDS: IV 1/2 NORMAL SALINE 1,000 ML IV SCH ×4 (00:48→23:14)
[2016-06-15 02:55] VITALS: BP 150/60
[2016-06-15 05:10] LABS: ALBUMIN 1.9 g/dL (3.4-5.0); CALCIUM 7.6 mg/dL (8.5-10.1); CREATININE 3.6 mg/dL (0.6-1.0); PHOSPHORUS 4.7 mg/dL (2.6-4.7)
[2016-06-15 07:32] VITALS: BP 168/70
--- NOTE | 2016-06-15 07:55 | PDOC ---
SUBJECTIVE Subjective Denies any shortness of breath except when laying down at night which is not unusual for her. No chest pain. Denies any abdominal pain. Tolerating her diet without any difficulty. No emesis. Having bowel movements. Denies any increased swelling. OBJECTIVE Vital Signs Vital Signs Date Time Temp Pulse Resp B/P Pulse Ox O2 Delivery O2 Flow Rate FiO2 06/15/16 07:32 98.8 81 26 168/70 100 Nasal Cannula 1.5 98.8 06/15/16 02:55 98.3 73 18 150/60 100 Nasal Cannula 1.5 98.3 06/14/16 23:00 98.6 69 18 143/54 98 Nasal Cannula 2.0 98.6 06/14/16 19:51 96 Nasal Cannula 1.0 06/14/16 19:51 96 Nasal Cannula 2.0 06/14/16 19:45 Nasal Cannula 2.0 06/14/16 19:30 98.0 76 18 118/46 98 Nasal Cannula 2.0 98.0 06/14/16 16:13 96 Nasal Cannula 2.0 06/14/16 15:00 97.7 69 18 135/52 99 Nasal Cannula 2.0 97.7 06/14/16 12:48 96 Nasal Cannula 2.0 06/14/16 11:00 98.1 75 18 129/52 100 Nasal Cannula 2.0 98.1 06/14/16 08:19 Nasal Cannula 2.0 06/14/16 08:01 98 Nasal Cannula 2.0 I & O Intake and Output 06/15/16 07:00 Intake Total 2920 ml Output Total 2400 ml Balance 520 ml Intake Oral 520 ml IV Total 1000 ml Other 1400 ml Output Urine Total 2400 ml # Bowel Movements 6 PHYSICAL EXAM Physical Exam General: No acute distress. Morbidly obese. Sitting in chair. Mental status: Alert and oriented. Chest: Clear to auscultation. Good air movement CV: Normal rate. Regular rhythm. No murmur. Abdomen: Occasional bowel sounds. Soft, morbidly obese. Not distended. No tenderness. No guarding. No rebound. Extremities: Trace bilateral lower extremity edema. ASSESSMENT/PLAN Assessment/Plan 1. A flutter/fib with RVR - maintaining sinus rhythm on po Cardizem, continue. 2. ventral hernia with possible partial SBO - obstruction appears resolved, exam benign, tolerating regular diet. Dr Villavicencio plans further evaluation as outpatient after discharge. Did MPI for risk stratification and due to new onset A. flutter/fib in case of future surgery. 3. acute renal failure due to ATN with CKD - lab stable with minimal improvement today, continue IVF as per Dr Majano. 4. HTN - controlled with present meds. 5. morbid obesity with debility - continue therapies. 6. Chronic lymphedema bilateral lower extremities: Stable. 7. Anemia, iron deficient and due to chronic kidney disease: Begin iron supplementation. Receiving Aranesp per renal. 8. History of COPD: Continue breathing treatments. 9. Mild pancreatitis at admission, could've been the cause of some of her abdominal pain: Resolved. 10. History of gout: Resume allopurinol at lower dose due to renal function. Problems: COMMENT Lab Laboratory Tests Test 06/14/16 21:01 06/15/16 03:10 Glucose (Fingerstick) 84mg/dL (70-99) Sodium Level 141mmol/L (136-145) Potassium Level 4.0mmol/L (3.5-5.1) Chloride Level 106mmol/L (98-107) Carbon Dioxide Level 26mmol/L (21-32) Anion Gap 9 (6-14) Blood Urea Nitrogen 41mg/dL (7-20) Creatinine 3.6mg/dL (0.6-1.0) Estimated GFR (Cockcroft-Gault) 15.0 Glucose Level 95mg/dL (70-99) Calcium Level 7.6mg/dL (8.5-10.1) Phosphorus Level 4.7mg/dL (2.6-4.7) Magnesium Level 1.8mg/dL (1.8-2.4) Albumin 1.9g/dL (3.4-5.0) CURTIS MARCELINO MD Jun 15, 2016 07:55
[2016-06-15] MEDS: DILTIAZEM HCL 120 MG CAP.ER.24H PO SCH (08:25)
[2016-06-15] MEDS: ALLOPURINOL 100 MG TABLET. PO SCH (08:25)
[2016-06-15] MEDS: FERROUS SULFATE 325 MG TABLET. PO SCH (08:27)
[2016-06-15] MEDS: ALBUTEROL SULFATE 2.5 MG/3 ML NEBU. NEB SCH ×4 (09:00→21:20)
--- NOTE | 2016-06-15 10:51 | PDOC ---
SURGICAL PROGRESS NOTE Subjective Continues to have normal Gi function. Abd soft without tenderness or pain. No symptoms at this time relative to the abdomen hernia or adhesions. Will follow and see also as outpatient and await decision of medical team as to the safety of massive ventral hernia repair. Vital Signs Vital Signs Date Time Temp Pulse Resp B/P Pulse Ox O2 Delivery O2 Flow Rate FiO2 06/15/16 09:01 99 Nasal Cannula 1.0 06/15/16 08:25 81 168/70 06/15/16 07:32 98.8 26 98.8 I&O Intake and Output 06/15/16 06:59 Intake Total 2920 ml Output Total 2400 ml Balance 520 ml Intake Oral 520 ml IV Total 1000 ml Other 1400 ml Output Urine Total 2400 ml # Bowel Movements 6 Labs Laboratory Tests Test 06/13/16 20:33 06/14/16 04:00 06/14/16 21:01 06/15/16 03:10 Glucose (Fingerstick) 100mg/dL (70-99) 84mg/dL (70-99) Sodium Level 140mmol/L (136-145) 141mmol/L (136-145) Potassium Level 3.8mmol/L (3.5-5.1) 4.0mmol/L (3.5-5.1) Chloride Level 106mmol/L (98-107) 106mmol/L (98-107) Carbon Dioxide Level 25mmol/L (21-32) 26mmol/L (21-32) Anion Gap 9 (6-14) 9 (6-14) Blood Urea Nitrogen 44mg/dL (7-20) 41mg/dL (7-20) Creatinine 3.7mg/dL (0.6-1.0) 3.6mg/dL (0.6-1.0) Estimated GFR (Cockcroft-Gault) 14.6 15.0 Glucose Level 90mg/dL (70-99) 95mg/dL (70-99) Calcium Level 7.9mg/dL (8.5-10.1) 7.6mg/dL (8.5-10.1) Phosphorus Level 4.3mg/dL (2.6-4.7) 4.7mg/dL (2.6-4.7) Magnesium Level 1.8mg/dL (1.8-2.4) 1.8mg/dL (1.8-2.4) Albumin 1.9g/dL (3.4-5.0) 1.9g/dL (3.4-5.0) Laboratory Tests Test 06/14/16 21:01 06/15/16 03:10 Glucose (Fingerstick) 84mg/dL (70-99) Sodium Level 141mmol/L (136-145) Potassium Level 4.0mmol/L (3.5-5.1) Chloride Level 106mmol/L (98-107) Carbon Dioxide Level 26mmol/L (21-32) Anion Gap 9 (6-14) Blood Urea Nitrogen 41mg/dL (7-20) Creatinine 3.6mg/dL (0.6-1.0) Estimated GFR (Cockcroft-Gault) 15.0 Glucose Level 95mg/dL (70-99) Calcium Level 7.6mg/dL (8.5-10.1) Phosphorus Level 4.7mg/dL (2.6-4.7) Magnesium Level 1.8mg/dL (1.8-2.4) Albumin 1.9g/dL (3.4-5.0) Problem List Problems Medical Problems: (1) Abdominal pain Status: Acute (2) Atrial flutter Status: Acute Problems: PRATEEK JOLLY MD Jun 15, 2016 10:51
[2016-06-15 11:06] VITALS: BP 141/65
[2016-06-15] MEDS: FLUTICASONE 50MCG/NASAL SPRAY 16GM BOTTLE. NS SCH (11:15)
[2016-06-15 15:00] VITALS: BP 141/59
[2016-06-15 19:52] VITALS: BP 139/56
[2016-06-15 23:21] VITALS: BP 170/75
--- NOTE | 2016-06-15 23:30 | PDOC ---
Provider Note Provider Note RENAL F/U: DANNY. S : Sitting up No active or new c/o Awake. No distress. O : VSS. Afebrile. Alert. Neck : Trach Lungs : Decreased bases CVS : RRR Abd: Soft, benign in appearance. Portly Ext: Stable edema Neuro : Grossly intact. Morbid obestiy. A/P: ARF/ ATN DEHYDRATION. HTN w CKD. SBO /ABD PAIN CKD III Supportive care Labs sl. better/stable. UOP fairly good. Increase IVF. Surgery consult. CPM. LIZANDRO DELGADO MD Jun 15, 2016 23:30
[2016-06-16 03:33] VITALS: BP 182/65
[2016-06-16] MEDS: IV 1/2 NORMAL SALINE 1,000 ML IV SCH ×2 (05:55→13:52)
[2016-06-16 07:00] LABS: ALBUMIN 2.1 g/dL (3.4-5.0); CALCIUM 7.9 mg/dL (8.5-10.1); CREATININE 3.4 mg/dL (0.6-1.0); GFR 16.1; PHOSPHORUS 4.3 mg/dL (2.6-4.7)
[2016-06-16] MEDS: FERROUS SULFATE 325 MG TABLET. PO SCH (07:49)
[2016-06-16] MEDS: DILTIAZEM HCL 120 MG CAP.ER.24H PO SCH (07:49)
[2016-06-16] MEDS: FLUTICASONE 50MCG/NASAL SPRAY 16GM BOTTLE. NS SCH (07:49)
[2016-06-16] MEDS: ALLOPURINOL 100 MG TABLET. PO SCH (07:49)
[2016-06-16] MEDS: ALBUTEROL SULFATE 2.5 MG/3 ML NEBU. NEB SCH ×4 (07:54→20:45)
[2016-06-16 07:58] VITALS: BP 206/81
--- NOTE | 2016-06-16 10:38 | PDOC ---
SURGICAL PROGRESS NOTE Subjective continues to do well with no abd discomfort. Abd remains soft and non-tender and she has normal GI function. does have a headache. Await med decision about renal failure etc. Will not plan repair of ventral hernia until medically more stabe for surgery. I will be out of town 06/18 thru 06/22/2016. Vital Signs Vital Signs Date Time Temp Pulse Resp B/P Pulse Ox O2 Delivery O2 Flow Rate FiO2 06/16/16 08:30 Nasal Cannula 1.5 06/16/16 07:58 98.9 98 22 206/81 98 98.9 I&O Intake and Output 06/16/16 07:00 Intake Total 600 ml Output Total 3001 ml Balance -2401 ml Intake Oral 600 ml Output Urine Total 3000 ml Stool Total 1 ml # Voids 2 # Bowel Movements 4 Labs Laboratory Tests Test 06/14/16 21:01 06/15/16 03:10 06/15/16 20:56 06/16/16 06:35 Glucose (Fingerstick) 84mg/dL (70-99) 118mg/dL (70-99) Sodium Level 141mmol/L (136-145) 142mmol/L (136-145) Potassium Level 4.0mmol/L (3.5-5.1) 4.0mmol/L (3.5-5.1) Chloride Level 106mmol/L (98-107) 108mmol/L (98-107) Carbon Dioxide Level 26mmol/L (21-32) 25mmol/L (21-32) Anion Gap 9 (6-14) 9 (6-14) Blood Urea Nitrogen 41mg/dL (7-20) 41mg/dL (7-20) Creatinine 3.6mg/dL (0.6-1.0) 3.4mg/dL (0.6-1.0) Estimated GFR (Cockcroft-Gault) 15.0 16.1 Glucose Level 95mg/dL (70-99) 90mg/dL (70-99) Calcium Level 7.6mg/dL (8.5-10.1) 7.9mg/dL (8.5-10.1) Phosphorus Level 4.7mg/dL (2.6-4.7) 4.3mg/dL (2.6-4.7) Magnesium Level 1.8mg/dL (1.8-2.4) 1.5mg/dL (1.8-2.4) Albumin 1.9g/dL (3.4-5.0) 2.1g/dL (3.4-5.0) Laboratory Tests Test 06/15/16 20:56 06/16/16 06:35 Glucose (Fingerstick) 118mg/dL (70-99) Sodium Level 142mmol/L (136-145) Potassium Level 4.0mmol/L (3.5-5.1) Chloride Level 108mmol/L (98-107) Carbon Dioxide Level 25mmol/L (21-32) Anion Gap 9 (6-14) Blood Urea Nitrogen 41mg/dL (7-20) Creatinine 3.4mg/dL (0.6-1.0) Estimated GFR (Cockcroft-Gault) 16.1 Glucose Level 90mg/dL (70-99) Calcium Level 7.9mg/dL (8.5-10.1) Phosphorus Level 4.3mg/dL (2.6-4.7) Magnesium Level 1.5mg/dL (1.8-2.4) Albumin 2.1g/dL (3.4-5.0) Problem List Problems Medical Problems: (1) Abdominal pain Status: Acute (2) Atrial flutter Status: Acute Problems: PRATEEK JOLLY MD Jun 16, 2016 10:38
[2016-06-16 11:22] VITALS: BP 171/69
--- NOTE | 2016-06-16 12:12 | PDOC ---
SUBJECTIVE ROS BERNY/ ATN + CKD III/ Iv doign OK overall CVS: no Orthopnea, no CP RESP: no SOB, no MARIE GI: no Nausea, no Vomiting : no Dysuria, no Urgency OBJECTIVE Vital Signs Vital Signs Date Time Temp Pulse Resp B/P Pulse Ox O2 Delivery O2 Flow Rate FiO2 06/16/16 11:22 98.5 89 22 171/69 98 Nasal Cannula 98.5 06/16/16 08:30 1.5 I & 0 Intake and Output 06/16/16 07:00 Intake Total 600 ml Output Total 3001 ml Balance -2401 ml Intake Oral 600 ml Output Urine Total 3000 ml Stool Total 1 ml # Voids 2 # Bowel Movements 4 PHYSICAL EXAM Physical Exam General Appearance: Awake Alert Oriented x 3 In no Distress; morbidly obese Eyes: VIsion Unchanged Conjunctiva Normal EN: No EN Drainage Mucous Memb. moist Neck: no JVD no JVP Supple no Thyromegaly CVS: S1 S2 no Murmur No Gallop No Rub no Edema Resp: no Rales no Rhonchi no Acc. Muscle use GI: BS +ve NO Bruit Non Tender Non Distended + Obese : no CVA tenderness; no Suprapubic Tenderness SKIN: no Rashes Breast Exam deferred Mu.Sk: Adequate ROM no Muscle Atrophy Heme: Unable to palpate Obvious LAD no palp Splenomegaly NEURO: Good Strength and Tone Cranial Nerves II - XII grossly intact Psych: not Depressed no Active hallucination DIAGNOSIS/ASSESSMENT Assessment & Plan ARF: Suspect Vol Dpeltion - not much better despite IVF as ordered. hence element of ATn cannot be rueld out. No Uremic s/s perse. Current FLuid and E- lyte status does not necessitate emergent need for Dialysis. Will re-evaluate for Dialysis in am CKD IV - Pt is not aware of same. Basleine creat is closer to 2.5ish or higher ^Na - [id number] w tih 0.45% Saline Proteinruia - 1.6gms - restart ARb as she was on it as OP per documented home meds Anemia: (fe def) check IRon; may need Epogen Transfuse as needed. IV Fe HTN: Current BP meds reviewed. See orders for changes. Discussed Plan of Care and prognosis etc. at length with family. Problems: COMMENT/RELEVANT DATA Meds Current Medications Medications (Trade) Dose Ordered Sig/Helen Start Time Stop Time Status Last Admin Dose Admin Albuterol Sulfate (Ventolin Neb Soln) 2.5 mg RTQID 06/12/16 09:00 06/16/16 11:47 2.5 MG Allopurinol (Zyloprim) 200 mg DAILY 06/15/16 09:00 06/16/16 07:49 200 MG Darbepoetin Viral 60 mcg 60 mcg [id number] 06/12/16 21:00 06/12/16 21:03 60 MCG Dextrose (Dextrose 50%-Water Syringe) 12.5 gm PRN Q15MIN PRN 06/11/16 08:30 Diltiazem HCl 120 mg 120 mg DAILY 06/12/16 13:00 06/16/16 07:49 120 MG Diltiazem HCl 20 mg 20 mg 1X ONCE 06/10/16 19:15 06/10/16 19:16 DC 06/10/16 19:02 20 MG Diltiazem HCl/ Dextrose (Cardizem) 125 ml @ 0 mls/hr CONT PRN 06/10/16 18:45 06/12/16 14:00 DC 06/11/16 13:05 5 MLS/HR Ferrous Sulfate (Feosol) 325 mg [id number] 06/15/16 08:00 06/16/16 07:49 325 MG Fluticasone Propionate 1 spray 1 spray DAILY 06/11/16 09:00 06/16/16 07:49 1 SPRAY Hydromorphone HCl (Dilaudid) 0.5 mg PRN Q1HR PRN 06/10/16 18:45 06/11/16 09:49 DC 06/10/16 19:00 0.5 MG Insulin Aspart (Novolog) 0-5 UNITS TIDWMEALS 06/11/16 12:00 06/13/16 11:08 DC Magnesium Sulfate/ Dextrose (Magnesium Sulfate PREMIX 1GM) 100 ml @ 100 mls/hr 1X ONCE 06/11/16 10:30 06/11/16 11:29 DC 06/11/16 14:18 100 MLS/HR Magnesium Sulfate/ Dextrose (Magnesium Sulfate PREMIX 2GM) 50 ml @ 25 mls/hr PRN DAILY PRN 06/12/16 16:00 06/16/16 07:50 25 MLS/HR Morphine Sulfate 2 mg 2 mg PRN Q2HR PRN 06/10/16 19:45 06/11/16 09:49 DC Ondansetron HCl (Zofran) 4 mg PRN Q8HRS PRN 06/10/16 19:45 06/11/16 19:44 DC Regadenoson (Lexiscan) 0.4 mg 1X ONCE 06/12/16 08:00 06/12/16 08:01 DC 06/12/16 08:27 0.4 MG Sodium Chloride (Iv Sodium Chloride 0.45%) 1,000 ml @ 200 mls/hr Q5H 06/12/16 16:04 06/16/16 05:55 200 MLS/HR Sodium Chloride (Iv Sodium Chloride 0.9% 500ml Bag) 500 ml @ 500 mls/hr 1X ONCE 06/10/16 18:45 06/10/16 19:44 DC 06/10/16 19:10 500 MLS/HR Sodium Chloride (Iv Sodium Chloride 0.9% 1000ml Bag) 1,000 ml @ 75 mls/hr [id number] 06/11/16 09:00 06/11/16 13:38 DC 06/11/16 08:40 75 MLS/HR Lab Laboratory Tests Test 06/15/16 20:56 06/16/16 06:35 Glucose (Fingerstick) 118mg/dL (70-99) Sodium Level 142mmol/L (136-145) Potassium Level 4.0mmol/L (3.5-5.1) Chloride Level 108mmol/L (98-107) Carbon Dioxide Level 25mmol/L (21-32) Anion Gap 9 (6-14) Blood Urea Nitrogen 41mg/dL (7-20) Creatinine 3.4mg/dL (0.6-1.0) Estimated GFR (Cockcroft-Gault) 16.1 Glucose Level 90mg/dL (70-99) Calcium Level 7.9mg/dL (8.5-10.1) Phosphorus Level 4.3mg/dL (2.6-4.7) Magnesium Level 1.5mg/dL (1.8-2.4) Albumin 2.1g/dL (3.4-5.0) JANE GUZMAN MD Jun 16, 2016 12:12
[2016-06-16] MEDS: LOSARTAN POTASSIUM 50 MG TABLET. PO SCH (13:21)
[2016-06-16 14:34] VITALS: BP 128/68
--- NOTE | 2016-06-16 16:27 | PDOC ---
SUBJECTIVE Subjective No new changes. No significant shortness of breath. No chest pain. She's been eating okay. No new abdominal pain. No nausea or vomiting. OBJECTIVE Vital Signs Vital Signs Date Time Temp Pulse Resp B/P Pulse Ox O2 Delivery O2 Flow Rate FiO2 06/16/16 15:42 97 Nasal Cannula 1.0 06/16/16 14:34 98.4 86 18 128/68 97 Nasal Cannula 98.4 06/16/16 13:21 89 171/69 06/16/16 11:48 97 Nasal Cannula 1.0 06/16/16 11:22 98.5 89 22 171/69 98 Nasal Cannula 98.5 06/16/16 08:30 Nasal Cannula 1.5 06/16/16 07:58 98.9 98 22 206/81 98 Nasal Cannula 98.9 06/16/16 07:58 99 Nasal Cannula 1.0 06/16/16 07:49 98 206/81 06/16/16 07:40 Nasal Cannula 1.5 06/16/16 03:33 98.1 84 18 182/65 98 Nasal Cannula 1.5 98.1 06/15/16 23:21 98.4 79 20 170/75 97 Nasal Cannula 1.5 98.4 06/15/16 21:20 99 Nasal Cannula 1.0 06/15/16 20:00 Nasal Cannula 1.0 06/15/16 19:52 98.1 76 18 139/56 99 Nasal Cannula 1.5 98.1 I & O Intake and Output 06/16/16 07:00 Intake Total 600 ml Output Total 3001 ml Balance -2401 ml Intake Oral 600 ml Output Urine Total 3000 ml Stool Total 1 ml # Voids 2 # Bowel Movements 4 PHYSICAL EXAM Physical Exam General: No acute distress. Morbidly obese. Laying in bed with supplemental oxygen. Mental status: Alert and oriented. Chest: Clear to auscultation. Good air movement CV: Normal rate. Regular rhythm. No murmur. Abdomen: Occasional bowel sounds. Soft, morbidly obese. Not distended. No tenderness. No guarding. No rebound. Ventral hernia is present Extremities: Trace bilateral lower extremity edema. ASSESSMENT/PLAN Assessment/Plan 1. A flutter/fib with RVR - maintaining sinus rhythm on po Cardizem, continue. 2. ventral hernia with possible partial SBO - obstruction appears resolved, exam benign, tolerating regular diet. Dr Villavicencio plans further evaluation as outpatient after discharge. Did MPI for risk stratification and due to new onset A. flutter/fib in case of future surgery. 3. acute renal failure due to ATN with CKD - lab stable with minimal improvement today, continue IVF as per Dr Majano. 4. HTN - controlled with present meds. 5. morbid obesity with debility - continue therapies. 6. Chronic lymphedema bilateral lower extremities: Stable. 7. Anemia, iron deficient and due to chronic kidney disease: Begin iron supplementation. Receiving Aranesp per renal. 8. History of COPD: Continue breathing treatments. 9. Mild pancreatitis at admission, could've been the cause of some of her abdominal pain: Resolved. 10. History of gout: Resume allopurinol at lower dose due to renal function. Problems: COMMENT Lab Laboratory Tests Test 06/15/16 20:56 06/16/16 06:35 Glucose (Fingerstick) 118mg/dL (70-99) Sodium Level 142mmol/L (136-145) Potassium Level 4.0mmol/L (3.5-5.1) Chloride Level 108mmol/L (98-107) Carbon Dioxide Level 25mmol/L (21-32) Anion Gap 9 (6-14) Blood Urea Nitrogen 41mg/dL (7-20) Creatinine 3.4mg/dL (0.6-1.0) Estimated GFR (Cockcroft-Gault) 16.1 Glucose Level 90mg/dL (70-99) Calcium Level 7.9mg/dL (8.5-10.1) Phosphorus Level 4.3mg/dL (2.6-4.7) Magnesium Level 1.5mg/dL (1.8-2.4) Albumin 2.1g/dL (3.4-5.0) CURTIS MARCELINO MD Jun 16, 2016 16:27
[2016-06-16 19:30] VITALS: BP 211/85
[2016-06-16] MEDS ORDERED: CLONIDINE HCL 0.1 MG TABLET PO PRN (20:00)
[2016-06-16] MEDS ORDERED: CLONIDINE TTS-3 PATCH. TD SCH (20:30)
[2016-06-16 23:20] VITALS: BP 197/78
[2016-06-16] MEDS ORDERED: ACETAMINOPHEN 325 MG TABLET. PO PRN (23:45)
[2016-06-17 03:15] VITALS: BP 205/90
[2016-06-17] MEDS: hydrALAZINE 20 MG/ML VIAL. IVP PRN ×2 (03:40)
[2016-06-17 06:18] LABS: PTH INTACT 191 pg/mL (15-65)
[2016-06-17 06:50] LABS: CALCIUM 8.8 mg/dL (8.5-10.1); CREATININE 3.4 mg/dL (0.6-1.0); GFR 16.1; PHOSPHORUS 3.8 mg/dL (2.6-4.7); POTASSIUM 3.8 mmol/L (3.5-5.1)
[2016-06-17 07:00] VITALS: BP 159/84
[2016-06-17] MEDS: ALBUTEROL SULFATE 2.5 MG/3 ML NEBU. NEB SCH ×5 (07:42→19:35)
[2016-06-17] MEDS: FLUTICASONE 50MCG/NASAL SPRAY 16GM BOTTLE. NS SCH (09:00)
[2016-06-17] MEDS: DILTIAZEM HCL 120 MG CAP.ER.24H PO SCH (09:07)
[2016-06-17] MEDS: LOSARTAN POTASSIUM 50 MG TABLET. PO SCH (09:07)
[2016-06-17] MEDS: FERROUS SULFATE 325 MG TABLET. PO SCH (09:07)
[2016-06-17] MEDS: ALLOPURINOL 100 MG TABLET. PO SCH (09:07)
[2016-06-17 11:00] VITALS: BP 152/83
--- NOTE | 2016-06-17 11:05 | PDOC ---
SUBJECTIVE ROS CKD IV/V Feeling OK overall x for min subj SOB; needed toure placement after Uo was contaminated with Stool for 24hr Urine CVS: no Orthopnea, no CP RESP: min SOB, ? MARIE GI: no Nausea, no Vomiting : no Dysuria, no Urgency OBJECTIVE Vital Signs Vital Signs Date Time Temp Pulse Resp B/P Pulse Ox O2 Delivery O2 Flow Rate FiO2 06/17/16 09:07 114 159/84 06/17/16 08:02 Nasal Cannula 1.0 06/17/16 07:00 98.4 20 94 98.4 I & 0 Intake and Output 06/17/16 06:59 Intake Total 1300 ml Output Total 3240 ml Balance -1940 ml Intake Oral 1300 ml Output Urine Total 3240 ml # Voids 4 PHYSICAL EXAM Physical Exam General Appearance: Awake Alert Oriented x 3 In no Distress; morbidly obese Eyes: VIsion Unchanged Conjunctiva Normal EN: No EN Drainage Mucous Memb. moist Neck: no JVD no JVP Supple no Thyromegaly CVS: S1 S2 no Murmur No Gallop No Rub + Edema Resp: no Rales no Rhonchi ? min Acc. Muscle use GI: BS +ve NO Bruit Non Tender Non Distended + Obese : no CVA tenderness; no Suprapubic Tenderness SKIN: no Rashes Breast Exam deferred Mu.Sk: Adequate ROM no Muscle Atrophy Heme: Unable to palpate Obvious LAD no palp Splenomegaly NEURO: Good Strength and Tone Cranial Nerves II - XII grossly intact; no asterixis Psych: not Depressed no Active hallucination DIAGNOSIS/ASSESSMENT Assessment & Plan ARF: Suspect Vol Dpeltion - not much better despite IVF as ordered. hence element of ATn cannot be rueld out. Progression of CKD Cannot be ruled out. No Uremic s/s perse. Current FLuid and E-lyte status does not necessitate emergent need for Dialysis. Will re-evaluate for Dialysis in am CKD IV - Pt is not aware of same. Baseline creat is closer to 2.5ish as reported (GFR is 13 for BRAEDEN) Proteinruia - 1.6gms - restarted ARb as she was on it as OP per documented home meds Anemia: (fe def) check IRon; may need Epogen Transfuse as needed. IV Fe as ordered Subj SOB - suspect Creat may be closer to 3.7 when Euvolemic - 1 x lasix today ^ed PTH - check Vit D HTN: Current BP meds reviewed. See orders for changes. Discussed Plan of Care and prognosis etc. at length with family. COMMENT/RELEVANT DATA Meds Current Medications Medications (Trade) Dose Ordered Sig/Helen Start Time Stop Time Status Last Admin Dose Admin Acetaminophen (Tylenol) 650 mg PRN Q4HRS PRN 06/16/16 23:45 06/16/16 23:59 650 MG Albuterol Sulfate (Ventolin Neb Soln) 2.5 mg RTQID 06/12/16 09:00 06/17/16 08:01 2.5 MG Allopurinol (Zyloprim) 200 mg DAILY 06/15/16 09:00 06/17/16 09:07 200 MG Clonidine HCl (Catapres Tts-3) 1 patch WEEKLY 06/16/16 20:30 06/17/16 03:40 1 PATCH Clonidine HCl (Catapres) 0.1 mg PRN Q6HRS PRN 06/16/16 20:00 06/16/16 20:22 0.1 MG Darbepoetin Viral 60 mcg 60 mcg WEEKLYHS 06/12/16 21:00 06/12/16 21:03 60 MCG Dextrose (Dextrose 50%-Water Syringe) 12.5 gm PRN Q15MIN PRN 06/11/16 08:30 Diltiazem HCl 120 mg 120 mg DAILY 06/12/16 13:00 06/17/16 09:07 120 MG Diltiazem HCl 20 mg 20 mg 1X ONCE 06/10/16 19:15 06/10/16 19:16 DC 06/10/16 19:02 20 MG Diltiazem HCl/ Dextrose (Cardizem) 125 ml @ 0 mls/hr CONT PRN 06/10/16 18:45 06/12/16 14:00 DC 06/11/16 13:05 5 MLS/HR Ferrous Sulfate (Feosol) 325 mg [id number] 06/15/16 08:00 06/17/16 09:07 325 MG Fluticasone Propionate 1 spray 1 spray DAILY 06/11/16 09:00 06/16/16 07:49 1 SPRAY Hydralazine HCl (Apresoline) 20 mg PRN Q4HRS PRN 06/16/16 20:30 06/17/16 03:40 20 MG Hydromorphone HCl (Dilaudid) 0.5 mg PRN Q1HR PRN 06/10/16 18:45 06/11/16 09:49 DC 06/10/16 19:00 0.5 MG Insulin Aspart (Novolog) 0-5 UNITS TIDWMEALS 06/11/16 12:00 06/13/16 11:08 DC Losartan Potassium (Cozaar) 100 mg DAILY 06/16/16 12:30 06/17/16 09:07 100 MG Magnesium Sulfate/ Dextrose (Magnesium Sulfate PREMIX 1GM) 100 ml @ 100 mls/hr 1X ONCE 06/11/16 10:30 06/11/16 11:29 DC 06/11/16 14:18 100 MLS/HR Magnesium Sulfate/ Dextrose (Magnesium Sulfate PREMIX 2GM) 50 ml @ 25 mls/hr PRN DAILY PRN 06/12/16 16:00 06/16/16 07:50 25 MLS/HR Morphine Sulfate 2 mg 2 mg PRN Q2HR PRN 06/10/16 19:45 06/11/16 09:49 DC Ondansetron HCl (Zofran) 4 mg PRN Q8HRS PRN 06/10/16 19:45 06/11/16 19:44 DC Regadenoson (Lexiscan) 0.4 mg 1X ONCE 06/12/16 08:00 06/12/16 08:01 DC 06/12/16 08:27 0.4 MG Sodium Chloride (Iv Sodium Chloride 0.45%) 1,000 ml @ 75 mls/hr [id number] 06/12/16 16:04 06/16/16 20:29 DC 06/16/16 13:52 75 MLS/HR Sodium Chloride (Iv Sodium Chloride 0.9% 500ml Bag) 500 ml @ 500 mls/hr 1X ONCE 06/10/16 18:45 06/10/16 19:44 DC 06/10/16 19:10 500 MLS/HR Sodium Chloride (Iv Sodium Chloride 0.9% 1000ml Bag) 1,000 ml @ 75 mls/hr [id number] 06/11/16 09:00 06/11/16 13:38 DC 06/11/16 08:40 75 MLS/HR Lab Laboratory Tests Test 06/16/16 14:20 06/17/16 04:52 Estimated GFR (Non- 13 (>59) EGFR 15 (>59) PTH (Intact) Specimen Description Comment (.) Parathyroid Hormone (Intact) 191pg/mL (15-65) Calcium (PTH Intact) 8.0mg/dL (8.7-10.3) Creatinine (PTH Intact) 3.31mg/dL (0.57-1.00) Phosphorus (PTH Intact) 4.1mg/dL (2.5-4.5) Sodium Level 144mmol/L (136-145) Potassium Level 3.8mmol/L (3.5-5.1) Chloride Level 110mmol/L (98-107) Carbon Dioxide Level 22mmol/L (21-32) Anion Gap 12 (6-14) Blood Urea Nitrogen 36mg/dL (7-20) Creatinine 3.4mg/dL (0.6-1.0) Estimated GFR (Cockcroft-Gault) 16.1 Glucose Level 100mg/dL (70-99) Calcium Level 8.8mg/dL (8.5-10.1) Phosphorus Level 3.8mg/dL (2.6-4.7) Magnesium Level 1.5mg/dL (1.8-2.4) Albumin 2.0g/dL (3.4-5.0) JANE GUZMAN MD Jun 17, 2016 11:05
[2016-06-17] MEDS ORDERED: MAGNESIUM SULFATE 2GM 50 ML IV ONE (11:15)
[2016-06-17] MEDS ORDERED: DILTIAZEM HCL 120 MG CAP.ER.24H PO ONE (11:30)
[2016-06-17] MEDS ORDERED: FUROSEMIDE 40 MG/4 ML VIAL. IVP ONE (11:30)
[2016-06-17] MEDS: IRON SUCROSE COMPLEX 200 MG in IV NORMAL SALINE 100ML 100 ML IV SCH (14:09)
[2016-06-17 15:00] VITALS: BP 172/77
--- NOTE | 2016-06-17 18:29 | PDOC ---
SUBJECTIVE Subjective No real change. Discussed with nephrology regarding possibly doing dialysis. Initially she did not want to but now she is considering doing it. OBJECTIVE Vital Signs Vital Signs Date Time Temp Pulse Resp B/P Pulse Ox O2 Delivery O2 Flow Rate FiO2 06/17/16 15:31 Nasal Cannula 1.0 06/17/16 15:00 98.9 89 20 172/77 99 Nasal Cannula 3.0 98.9 06/17/16 11:53 97 Nasal Cannula 1.0 06/17/16 11:43 104 152/83 06/17/16 11:06 Nasal Cannula 2.0 06/17/16 11:00 98.8 104 20 152/83 97 Nasal Cannula 1.0 98.8 06/17/16 09:07 114 159/84 06/17/16 09:07 114 159/84 06/17/16 08:02 Nasal Cannula 1.0 06/17/16 08:00 Nasal Cannula 2.0 06/17/16 07:00 98.4 114 20 159/84 94 Nasal Cannula 1.0 98.4 06/17/16 03:40 103 205/90 06/17/16 03:15 98.6 109 22 205/90 93 Nasal Cannula 1.0 98.6 06/17/16 00:00 111 197/78 06/16/16 23:20 100.0 111 20 197/78 94 Nasal Cannula 1.0 100.0 06/16/16 20:46 97 Nasal Cannula 1.0 06/16/16 20:30 Nasal Cannula 1.0 06/16/16 20:22 86 211/85 06/16/16 19:30 99.0 96 20 211/85 99 Nasal Cannula 1.0 99.0 I & O Intake and Output 06/17/16 07:00 Intake Total 1300 ml Output Total 3240 ml Balance -1940 ml Intake Oral 1300 ml Output Urine Total 3240 ml # Voids 4 PHYSICAL EXAM Physical Exam General: No acute distress. Morbidly obese. Laying in bed Mental status: Alert and oriented. Chest: Clear to auscultation. Fair air movement CV: Normal rate. Regular rhythm. No murmur. Abdomen: Occasional bowel sounds. Soft, morbidly obese. Not distended. Minimal epigastric tenderness. No guarding. No rebound. Ventral hernia present Extremities: Trace bilateral lower extremity edema. ASSESSMENT/PLAN Assessment/Plan 1. A flutter/fib with RVR - maintaining sinus rhythm on po Cardizem, continue. 2. ventral hernia with possible partial SBO - obstruction appears resolved, exam benign, tolerating regular diet. Dr Villavicencio plans further evaluation as outpatient after discharge. Did MPI for risk stratification and due to new onset A. flutter/fib in case of future surgery. 3. acute renal failure due to ATN with CKD, now appears to be likely end-stage renal disease - lab stable with minimal improvement today, continue IVF as per renal. Patient seems to be interested likely doing dialysis if that is indicated. 4. HTN - controlled with present meds. 5. morbid obesity with debility - continue therapies. 6. Chronic lymphedema bilateral lower extremities: Stable. 7. Anemia, iron deficient and due to chronic kidney disease: Begin iron supplementation. Receiving Aranesp per renal. 8. History of COPD: Continue breathing treatments. 9. Mild pancreatitis at admission, could've been the cause of some of her abdominal pain: Resolved. 10. History of gout: Resume allopurinol at lower dose due to renal function. Problems: COMMENT Lab Laboratory Tests Test 06/17/16 04:52 Sodium Level 144mmol/L (136-145) Potassium Level 3.8mmol/L (3.5-5.1) Chloride Level 110mmol/L (98-107) Carbon Dioxide Level 22mmol/L (21-32) Anion Gap 12 (6-14) Blood Urea Nitrogen 36mg/dL (7-20) Creatinine 3.4mg/dL (0.6-1.0) Estimated GFR (Cockcroft-Gault) 16.1 Glucose Level 100mg/dL (70-99) Calcium Level 8.8mg/dL (8.5-10.1) Phosphorus Level 3.8mg/dL (2.6-4.7) Magnesium Level 1.5mg/dL (1.8-2.4) Albumin 2.0g/dL (3.4-5.0) CURTIS MARCELINO MD Jun 17, 2016 18:29
[2016-06-17 19:25] VITALS: BP 173/70
[2016-06-17 23:30] VITALS: BP 170/74
[2016-06-18 03:40] VITALS: BP 187/68
[2016-06-18 04:52] LABS: ALBUMIN 1.8 g/dL (3.4-5.0); CALCIUM 8.8 mg/dL (8.5-10.1); CREATININE 3.4 mg/dL (0.6-1.0); GFR 16.1; PHOSPHORUS 4.6 mg/dL (2.6-4.7); POTASSIUM 3.9 mmol/L (3.5-5.1)
[2016-06-18 07:00] VITALS: BP 169/79
--- NOTE | 2016-06-18 08:18 | PDOC ---
SUBJECTIVE Subjective No specific complaints today. No abdominal pain. He will eat without difficulty. Maybe a little bit short of breath at times. Has decided that if she does need dialysis she will proceed with that. OBJECTIVE Vital Signs Vital Signs Date Time Temp Pulse Resp B/P Pulse Ox O2 Delivery O2 Flow Rate FiO2 06/18/16 03:40 97.9 95 30 187/68 96 Nasal Cannula 2.0 97.9 06/17/16 23:30 98.4 95 28 170/74 95 Nasal Cannula 1.0 98.4 06/17/16 20:00 Room Air 06/17/16 19:35 Nasal Cannula 1.0 06/17/16 19:25 98.3 95 32 173/70 95 Nasal Cannula 1.0 98.3 06/17/16 15:31 Nasal Cannula 1.0 06/17/16 15:00 98.9 89 20 172/77 99 Nasal Cannula 3.0 98.9 06/17/16 11:53 97 Nasal Cannula 1.0 06/17/16 11:43 104 152/83 06/17/16 11:06 Nasal Cannula 2.0 06/17/16 11:00 98.8 104 20 152/83 97 Nasal Cannula 1.0 98.8 06/17/16 09:07 114 159/84 06/17/16 09:07 114 159/84 I & O Intake and Output 06/18/16 06:59 Intake Total 900 ml Output Total 2550 ml Balance -1650 ml Intake Oral 750 ml IV Total 150 ml Output Urine Total 2550 ml PHYSICAL EXAM Physical Exam General: No acute distress. Morbidly obese. Laying in bed with supplemental oxygen. Mental status: Alert and oriented. Chest: Clear to auscultation anteriorly. Good air movement anteriorly CV: Normal rate. Regular rhythm. No murmur. Abdomen: Occasional bowel sounds. Soft, morbidly obese. Not distended. No tenderness. No guarding. No rebound. Ventral hernia is present Extremities: 1+ bilateral lower extremity edema. ASSESSMENT/PLAN Assessment/Plan 1. A flutter/fib with RVR - maintaining sinus rhythm on po Cardizem, continue. 2. ventral hernia with possible partial SBO - obstruction appears resolved, exam benign, tolerating regular diet. Dr Villavicencio plans further evaluation as outpatient after discharge. Did MPI for risk stratification and due to new onset A. flutter/fib in case of future surgery. 3. acute renal failure due to ATN with CKD, now appears to be likely end-stage renal disease - lab stable with minimal improvement today, continue IVF as per renal. Await 24-hour urine collection which had to be restarted secondary to fecal contamination. Abdul was placed to facilitate collection. Patient seems to be okay with doing dialysis if that is indicated. 4. HTN - controlled with present meds. 5. morbid obesity with debility - continue therapies. 6. Chronic lymphedema bilateral lower extremities: Stable. 7. Anemia, iron deficient and due to chronic kidney disease: Begin iron supplementation. Receiving Aranesp per renal. 8. History of COPD: Continue breathing treatments. 9. Mild pancreatitis at admission, could've been the cause of some of her abdominal pain: Resolved. 10. History of gout: Resume allopurinol at lower dose due to renal function. 11. Disposition: We'll see how her urine collection turns out determine if she will need dialysis or not. Continue per nephrology. Problems: COMMENT Lab Laboratory Tests Test 06/18/16 04:20 Sodium Level 144mmol/L (136-145) Potassium Level 3.9mmol/L (3.5-5.1) Chloride Level 109mmol/L (98-107) Carbon Dioxide Level 27mmol/L (21-32) Anion Gap 8 (6-14) Blood Urea Nitrogen 38mg/dL (7-20) Creatinine 3.4mg/dL (0.6-1.0) Estimated GFR (Cockcroft-Gault) 16.1 Glucose Level 105mg/dL (70-99) Calcium Level 8.8mg/dL (8.5-10.1) Phosphorus Level 4.6mg/dL (2.6-4.7) Magnesium Level 1.7mg/dL (1.8-2.4) Albumin 1.8g/dL (3.4-5.0) CURTIS MARCELINO MD Jun 18, 2016 08:18
[2016-06-18] MEDS: ALBUTEROL SULFATE 2.5 MG/3 ML NEBU. NEB SCH ×4 (08:44→18:21)
[2016-06-18] MEDS: FLUTICASONE 50MCG/NASAL SPRAY 16GM BOTTLE. NS SCH (09:00)
[2016-06-18] MEDS: DILTIAZEM HCL 240 MG CAP.ER.24H PO SCH (09:14)
[2016-06-18] MEDS: FERROUS SULFATE 325 MG TABLET. PO SCH (09:14)
[2016-06-18] MEDS: ALLOPURINOL 100 MG TABLET. PO SCH (09:15)
[2016-06-18] MEDS: LOSARTAN POTASSIUM 50 MG TABLET. PO SCH (09:15)
[2016-06-18 11:00] VITALS: BP 145/74
--- NOTE | 2016-06-18 11:15 | PDOC ---
SUBJECTIVE ROS BERNY/ CKD III doing OK overall CVS: no Orthopnea, no CP RESP: no SOB, no MARIE GI: no Nausea, no Vomiting : no Dysuria, no Urgency OBJECTIVE Vital Signs Vital Signs Date Time Temp Pulse Resp B/P Pulse Ox O2 Delivery O2 Flow Rate FiO2 06/18/16 11:00 98.6 100 28 145/74 95 Nasal Cannula 2.0 98.6 I & 0 Intake and Output 06/18/16 06:59 Intake Total 900 ml Output Total 2550 ml Balance -1650 ml Intake Oral 750 ml IV Total 150 ml Output Urine Total 2550 ml PHYSICAL EXAM Physical Exam General Appearance: Awake Alert Oriented x 3 In no Distress; morbidly obese Eyes: VIsion Unchanged Conjunctiva Normal EN: No EN Drainage Mucous Memb. moist Neck: no JVD no JVP Supple no Thyromegaly CVS: S1 S2 no Murmur No Gallop No Rub + Edema Resp: no Rales no Rhonchi ? min Acc. Muscle use GI: BS +ve NO Bruit Non Tender Non Distended + Obese : no CVA tenderness; no Suprapubic Tenderness DIAGNOSIS/ASSESSMENT Assessment & Plan ARF: element of ATn cannot be rueld out. Progression of CKD Cannot be ruled out either. No Uremic s/s perse. Current FLuid and E-lyte status does not necessitate emergent need for Dialysis. Will re-evaluate for Dialysis in am CKD IV - Baseline creat is closer to 2.5ish as reported (eGFR is 15 for AA) Proteinruia - 1.6gms - restarted ARb as she was on it as OP per documented home meds Anemia: (fe def) may need Epogen; IV Fe as ordered Subj SOB - suspect Creat may be closer to 3.7 when Euvolemic - 1 x lasix today ^ed PTH - start Vit D HTN: Current BP meds reviewed. See orders for changes. Better this am Lowish Mag - 1 gm today Discussed Plan of Care and prognosis etc. at length with family. COMMENT/RELEVANT DATA Meds Current Medications Medications (Trade) Dose Ordered Sig/Helen Start Time Stop Time Status Last Admin Dose Admin Acetaminophen 650 mg 650 mg PRN Q4HRS PRN 06/16/16 23:45 06/16/16 23:59 650 MG Albuterol Sulfate (Ventolin Neb Soln) 2.5 mg RTQID 06/12/16 09:00 06/18/16 08:44 2.5 MG Allopurinol (Zyloprim) 200 mg DAILY 06/15/16 09:00 06/18/16 09:15 200 MG Clonidine HCl (Catapres Tts-3) 1 patch WEEKLY 06/16/16 20:30 06/17/16 03:40 1 PATCH Clonidine HCl (Catapres) 0.1 mg PRN Q6HRS PRN 06/16/16 20:00 06/16/16 20:22 0.1 MG Darbepoetin Viral 60 mcg 60 mcg WEEKLYHS 06/12/16 21:00 06/12/16 21:03 60 MCG Dextrose (Dextrose 50%-Water Syringe) 12.5 gm PRN Q15MIN PRN 06/11/16 08:30 Diltiazem HCl (Cardizem 24hr Cd) 120 mg 1X ONCE 06/17/16 11:30 06/17/16 11:31 DC 06/17/16 11:43 120 MG Diltiazem HCl 20 mg 20 mg 1X ONCE 06/10/16 19:15 06/10/16 19:16 DC 06/10/16 19:02 20 MG Diltiazem HCl 240 mg 240 mg DAILY 06/18/16 09:00 06/18/16 09:14 240 MG Diltiazem HCl/ Dextrose (Cardizem) 125 ml @ 0 mls/hr CONT PRN 06/10/16 18:45 06/12/16 14:00 DC 06/11/16 13:05 5 MLS/HR Ferrous Sulfate (Feosol) 325 mg [id number] 06/15/16 08:00 06/18/16 09:14 325 MG Fluticasone Propionate 1 spray 1 spray DAILY 06/11/16 09:00 06/16/16 07:49 1 SPRAY Furosemide (Lasix) 40 mg 1X ONCE 06/17/16 11:30 06/17/16 11:31 DC 06/17/16 11:43 40 MG Hydralazine HCl (Apresoline) 20 mg PRN Q4HRS PRN 06/16/16 20:30 06/17/16 03:40 20 MG Hydromorphone HCl (Dilaudid) 0.5 mg PRN Q1HR PRN 06/10/16 18:45 06/11/16 09:49 DC 06/10/16 19:00 0.5 MG Insulin Aspart (Novolog) 0-5 UNITS TIDWMEALS 06/11/16 12:00 06/13/16 11:08 DC Iron Sucrose/ Sodium Chloride (Venofer/Iv Sodium Chloride 0.9% 100ml) 110 ml @ 55 mls/hr 3X/WEEK 06/17/16 12:00 06/26/16 10:59 06/17/16 14:09 55 MLS/HR Losartan Potassium (Cozaar) 100 mg DAILY 06/16/16 12:30 06/18/16 09:15 100 MG Magnesium Sulfate/ Dextrose (Magnesium Sulfate PREMIX 1GM) 100 ml @ 100 mls/hr 1X ONCE 06/11/16 10:30 06/11/16 11:29 DC 06/11/16 14:18 100 MLS/HR Magnesium Sulfate/ Dextrose (Magnesium Sulfate PREMIX 2GM) 50 ml @ 25 mls/hr 1X ONCE 06/17/16 11:15 06/17/16 13:14 DC 06/17/16 11:43 25 MLS/HR Morphine Sulfate 2 mg 2 mg PRN Q2HR PRN 06/10/16 19:45 06/11/16 09:49 DC Ondansetron HCl (Zofran) 4 mg PRN Q8HRS PRN 06/10/16 19:45 06/11/16 19:44 DC Regadenoson (Lexiscan) 0.4 mg 1X ONCE 06/12/16 08:00 06/12/16 08:01 DC 06/12/16 08:27 0.4 MG Sodium Chloride (Iv Sodium Chloride 0.45%) 1,000 ml @ 75 mls/hr [id number] 06/12/16 16:04 06/16/16 20:29 DC 06/16/16 13:52 75 MLS/HR Sodium Chloride (Iv Sodium Chloride 0.9% 500ml Bag) 500 ml @ 500 mls/hr 1X ONCE 06/10/16 18:45 06/10/16 19:44 DC 06/10/16 19:10 500 MLS/HR Sodium Chloride (Iv Sodium Chloride 0.9% 1000ml Bag) 1,000 ml @ 75 mls/hr [id number] 4/20/17 09:00 06/11/16 13:38 DC 06/11/16 08:40 75 MLS/HR Lab Laboratory Tests Test 06/18/16 04:20 Sodium Level 144mmol/L (136-145) Potassium Level 3.9mmol/L (3.5-5.1) Chloride Level 109mmol/L (98-107) Carbon Dioxide Level 27mmol/L (21-32) Anion Gap 8 (6-14) Blood Urea Nitrogen 38mg/dL (7-20) Creatinine 3.4mg/dL (0.6-1.0) Estimated GFR (Cockcroft-Gault) 16.1 Glucose Level 105mg/dL (70-99) Calcium Level 8.8mg/dL (8.5-10.1) Phosphorus Level 4.6mg/dL (2.6-4.7) Magnesium Level 1.7mg/dL (1.8-2.4) Albumin 1.8g/dL (3.4-5.0) JANE GUZMAN MD Jun 18, 2016 11:15
[2016-06-18] MEDS ORDERED: MAGNESIUM SULFATE 2GM 50 ML IV PRN (11:30)
[2016-06-18] MEDS ORDERED: MAGNESIUM SULFATE 1GM 100 ML IV ONE (12:00)
[2016-06-18] MEDS: NYSTATIN TOPICAL POWDER 15GM BOTTLE. TP SCH ×2 (12:53→20:55)
[2016-06-18 13:19] LABS: TOTAL SERUM CREATININE 3.25 mg/dL (0.57-1.00); TOTAL URINE CREATININE 36.5 mg/dL (Not Estab.)
[2016-06-18 15:00] VITALS: BP 150/54
[2016-06-18 19:10] VITALS: BP 125/49
[2016-06-18 23:40] VITALS: BP 160/68
[2016-06-19 03:15] VITALS: BP 128/77
[2016-06-19 03:20] VITALS: BP 157/59
[2016-06-19 06:43] LABS: ALBUMIN 1.7 g/dL (3.4-5.0); CALCIUM 8.7 mg/dL (8.5-10.1); CREATININE 3.5 mg/dL (0.6-1.0); GFR 15.5; PHOSPHORUS 4.6 mg/dL (2.6-4.7); POTASSIUM 3.9 mmol/L (3.5-5.1)
[2016-06-19 07:00] VITALS: BP 153/60
[2016-06-19] MEDS: ALBUTEROL SULFATE 2.5 MG/3 ML NEBU. NEB SCH ×3 (07:15→16:08)
[2016-06-19] MEDS ORDERED: MAGNESIUM SULFATE 1GM 100 ML IV ONE (08:00)
--- NOTE | 2016-06-19 08:01 | PDOC ---
SUBJECTIVE Subjective Feeling better overall today. Not having as much shortness of air. It is getting to the chair. Eating okay. Doesn't like the nutritional supplements. Denies any abdominal pain. OBJECTIVE Vital Signs Vital Signs Date Time Temp Pulse Resp B/P Pulse Ox O2 Delivery O2 Flow Rate FiO2 06/19/16 07:15 Nasal Cannula 1.0 06/19/16 07:00 98.3 97 20 153/60 96 Nasal Cannula 1.0 98.3 06/19/16 03:20 98.8 97 26 157/59 95 Nasal Cannula 1.0 98.8 06/18/16 23:40 98.4 85 23 160/68 95 Nasal Cannula 1.0 98.4 06/18/16 20:00 Nasal Cannula 2.0 06/18/16 19:10 97.9 84 18 125/49 96 Nasal Cannula 2.0 97.9 06/18/16 18:22 Nasal Cannula 1.0 06/18/16 15:17 Nasal Cannula 1.0 06/18/16 15:00 98.4 86 26 150/54 96 Nasal Cannula 2.0 98.4 06/18/16 12:04 Nasal Cannula 1.0 06/18/16 11:00 98.6 100 28 145/74 95 Nasal Cannula 2.0 98.6 06/18/16 09:15 91 169/79 06/18/16 09:14 91 169/79 06/18/16 08:44 Nasal Cannula 1.0 06/18/16 08:30 Room Air I & O Intake and Output 06/19/16 06:59 Intake Total 550 ml Output Total 500 ml Balance 50 ml Intake Oral 450 ml IV Total 100 ml Output Urine Total 500 ml # Voids 4 # Bowel Movements 2 PHYSICAL EXAM Physical Exam General: No acute distress. Morbidly obese. Laying in bed with supplemental oxygen. Mental status: Alert and oriented. Chest: Clear to auscultation anteriorly. Fair air movement overall but slightly decreased at the bases. Rare expiratory wheezes at the bases. CV: Normal rate. Regular rhythm. No murmur. Abdomen: Occasional bowel sounds. Soft, morbidly obese. Not distended. No tenderness. No guarding. No rebound. Ventral hernia is present Extremities: 1+ bilateral lower extremity edema. ASSESSMENT/PLAN Assessment/Plan 1. A flutter/fib with RVR - maintaining sinus rhythm on po Cardizem, continue. 2. ventral hernia with possible partial SBO - obstruction appears resolved, exam benign, tolerating regular diet. Dr Villavicencio plans further evaluation as outpatient after discharge. Did MPI for risk stratification and due to new onset A. flutter/fib in case of future surgery. 3. acute renal failure due to vasomotor etiology and ATN with CKD, creatinine clearance on 24 hour urine was 27 consistent with stage IV-creatinine stable, off IV fluids. Defer to nephrology regarding further management at this point 4. HTN -elevated. Begin low-dose Lopressor. 5. morbid obesity with debility - continue therapies. 6. Chronic lymphedema bilateral lower extremities: Stable. 7. Anemia, iron deficient and due to chronic kidney disease: Begin iron supplementation. Receiving Aranesp per renal. 8. History of COPD: Continue breathing treatments. 9. Mild pancreatitis at admission, could've been the cause of some of her abdominal pain: Resolved. 10. History of gout: Resume allopurinol at lower dose due to renal function. 11. Hypomagnesemia: Replace with IV. Recheck in the morning. 12. Vitamin D deficiency: Replace orally. 13. Increased PTH: Probably due to underlying kidney disease with vitamin D deficiency. Continue per nephrology and as above. 14. Disposition: Monitor blood pressure. We'll see what nephrology has planned for her. 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 Problems: COMMENT Lab Laboratory Tests Test 06/19/16 05:30 Sodium Level 145mmol/L (136-145) Potassium Level 3.9mmol/L (3.5-5.1) Chloride Level 110mmol/L (98-107) Carbon Dioxide Level 26mmol/L (21-32) Anion Gap 9 (6-14) Blood Urea Nitrogen 40mg/dL (7-20) Creatinine 3.5mg/dL (0.6-1.0) Estimated GFR (Cockcroft-Gault) 15.5 Glucose Level 100mg/dL (70-99) Calcium Level 8.7mg/dL (8.5-10.1) Phosphorus Level 4.6mg/dL (2.6-4.7) Albumin 1.7g/dL (3.4-5.0) CURTIS MARCELINO MD Jun 19, 2016 08:01
[2016-06-19] MEDS: FLUTICASONE 50MCG/NASAL SPRAY 16GM BOTTLE. NS SCH (09:00)
[2016-06-19] MEDS ORDERED: CHOLECALCIFEROL (VITAMIN D3) 1,000 UNIT TABLET PO SCH (09:00)
[2016-06-19] MEDS: NYSTATIN TOPICAL POWDER 15GM BOTTLE. TP SCH (09:00)
[2016-06-19] MEDS ORDERED: METOPROLOL TART IMMED RELEASE 25 MG TABLET. PO SCH (09:00)
[2016-06-19] MEDS ORDERED: ERGOCALCIFEROL (VITAMIN D2) 50,000 UNIT CAPSULE. PO SCH (09:00)
[2016-06-19] MEDS: IRON SUCROSE COMPLEX 200 MG in IV NORMAL SALINE 100ML 100 ML IV SCH (09:24)
[2016-06-19] MEDS: ALLOPURINOL 100 MG TABLET. PO SCH (09:25)
[2016-06-19] MEDS: FERROUS SULFATE 325 MG TABLET. PO SCH (09:26)
[2016-06-19] MEDS: DILTIAZEM HCL 240 MG CAP.ER.24H PO SCH (09:26)
[2016-06-19 11:00] VITALS: BP 143/69
--- NOTE | 2016-06-19 11:36 | PDOC ---
SUBJECTIVE ROS CKD IV Doing well CVS: no Orthopnea, no CP RESP: no SOB, no MARIE GI: no Nausea, no Vomiting : no Dysuria, no Urgency OBJECTIVE Vital Signs Vital Signs Date Time Temp Pulse Resp B/P Pulse Ox O2 Delivery O2 Flow Rate FiO2 06/19/16 11:04 Nasal Cannula 1.0 06/19/16 09:26 97 153/60 06/19/16 07:00 98.3 20 96 98.3 I & 0 Intake and Output 06/19/16 07:00 Intake Total 550 ml Output Total 500 ml Balance 50 ml Intake Oral 450 ml IV Total 100 ml Output Urine Total 500 ml # Voids 4 # Bowel Movements 2 PHYSICAL EXAM Physical Exam General Appearance: Awake Alert Oriented x 3 In no Distress; morbidly obese Eyes: VIsion Unchanged Conjunctiva Normal EN: No EN Drainage Mucous Memb. moist Neck: no JVD no JVP Supple no Thyromegaly CVS: S1 S2 no Murmur No Gallop No Rub no Edema Resp: no Rales no Rhonchi ? min Acc. Muscle use; distal BS GI: BS +ve NO Bruit Non Tender Non Distended + morbidly Obese : no CVA tenderness; no Suprapubic Tenderness DIAGNOSIS/ASSESSMENT Assessment & Plan ARF: element of ATn cannot be ruled out. Progression of CKD Cannot be ruled out either vs due to better BP control. No Uremic s/s perse. Current FLuid and E -lyte status does not necessitate emergent need for Dialysis. Will re-evaluate for Dialysis in am CKD IV - Baseline creat is closer to 2.5ish as reported (eGFR is 15 for AA) but Cr Cl is 27 currently on 24-hr urine. Nephrotic syndrome - ct ARb, Requantitate as OP; PEPs as ordered, ct ARb as she was on it as OP per documented home meds Anemia: (fe def) may need Epogen asOP; IV Fe as ordered Subj SOB - change to PO lasix in anticipation of D/c ^ed PTH - start ed Vit D; may need reyaldee as OP HTN: Current BP meds reviewed. See orders for changes. Better this am Lowish Mag - 1 gm given yest, no recheck for today avail Discussed Plan of Care and prognosis etc. at length with family. COMMENT/RELEVANT DATA Meds Current Medications Medications (Trade) Dose Ordered Sig/Helen Start Time Stop Time Status Last Admin Dose Admin Acetaminophen (Tylenol) 650 mg PRN Q4HRS PRN 06/16/16 23:45 06/16/16 23:59 650 MG Albuterol Sulfate (Ventolin Neb Soln) 2.5 mg RTQID 06/12/16 09:00 06/19/16 11:03 2.5 MG Allopurinol (Zyloprim) 200 mg DAILY 06/15/16 09:00 06/19/16 09:25 200 MG Clonidine HCl (Catapres Tts-3) 1 patch WEEKLY 06/16/16 20:30 06/17/16 03:40 1 PATCH Clonidine HCl (Catapres) 0.1 mg PRN Q6HRS PRN 06/16/16 20:00 06/16/16 20:22 0.1 MG Darbepoetin Viral 60 mcg 60 mcg WEEKLYHS 06/12/16 21:00 06/12/16 21:03 60 MCG Dextrose (Dextrose 50%-Water Syringe) 12.5 gm PRN Q15MIN PRN 06/11/16 08:30 Diltiazem HCl (Cardizem 24hr Cd) 120 mg DAILY 06/12/16 13:00 06/17/16 11:05 DC 06/17/16 09:07 120 MG Diltiazem HCl 120 mg 120 mg 1X ONCE 06/17/16 11:30 06/17/16 11:31 DC 06/17/16 11:43 120 MG Diltiazem HCl 20 mg 20 mg 1X ONCE 06/10/16 19:15 06/10/16 19:16 DC 06/10/16 19:02 20 MG Diltiazem HCl 240 mg 240 mg DAILY 06/18/16 09:00 06/19/16 09:26 240 MG Diltiazem HCl/ Dextrose (Cardizem) 125 ml @ 0 mls/hr CONT PRN 06/10/16 18:45 06/12/16 14:00 DC 06/11/16 13:05 5 MLS/HR Ergocalciferol (Vitamin D2) 50,000 unit WEEKLY 06/19/16 09:00 06/19/16 09:25 50,000 UNIT Ferrous Sulfate (Feosol) 325 mg [id number] 06/15/16 08:00 06/19/16 09:26 325 MG Fluticasone Propionate (Flonase) 1 spray DAILY 06/11/16 09:00 06/16/16 07:49 1 SPRAY Furosemide (Lasix) 40 mg 1X ONCE 06/17/16 11:30 06/17/16 11:31 DC 06/17/16 11:43 40 MG Hydralazine HCl (Apresoline) 20 mg PRN Q4HRS PRN 06/16/16 20:30 06/17/16 03:40 20 MG Hydromorphone HCl (Dilaudid) 0.5 mg PRN Q1HR PRN 06/10/16 18:45 06/11/16 09:49 DC 06/10/16 19:00 0.5 MG Insulin Aspart (Novolog) 0-5 UNITS TIDWMEALS 06/11/16 12:00 06/13/16 11:08 DC Iron Sucrose/ Sodium Chloride (Venofer/Iv Sodium Chloride 0.9% 100ml) 110 ml @ 55 mls/hr 3X/WEEK 06/17/16 12:00 06/26/16 10:59 06/19/16 09:24 55 MLS/HR Losartan Potassium (Cozaar) 100 mg DAILY 06/16/16 12:30 06/18/16 09:15 100 MG Magnesium Sulfate/ Dextrose (Magnesium Sulfate PREMIX 1GM) 100 ml @ 100 mls/hr 1X ONCE 06/19/16 08:00 06/19/16 08:59 DC Magnesium Sulfate/ Dextrose (Magnesium Sulfate PREMIX 2GM) 50 ml @ 25 mls/hr PRN DAILY PRN 06/18/16 11:30 06/18/16 11:30 DC Metoprolol Tartrate (Lopressor) 12.5 mg BID 06/19/16 09:00 06/19/16 09:26 12.5 MG Morphine Sulfate 2 mg 2 mg PRN Q2HR PRN 06/10/16 19:45 06/11/16 09:49 DC Nystatin 1 riaz 1 riaz BID 06/18/16 12:00 06/18/16 20:55 1 RIAZ Ondansetron HCl (Zofran) 4 mg PRN Q8HRS PRN 06/10/16 19:45 06/11/16 19:44 DC Regadenoson (Lexiscan) 0.4 mg 1X ONCE 06/12/16 08:00 06/12/16 08:01 DC 06/12/16 08:27 0.4 MG Sodium Chloride (Iv Sodium Chloride 0.45%) 1,000 ml @ 75 mls/hr [id number] 06/12/16 16:04 06/16/16 20:29 DC 06/16/16 13:52 75 MLS/HR Sodium Chloride (Iv Sodium Chloride 0.9% 500ml Bag) 500 ml @ 500 mls/hr 1X ONCE 06/10/16 18:45 06/10/16 19:44 DC 06/10/16 19:10 500 MLS/HR Sodium Chloride (Iv Sodium Chloride 0.9% 1000ml Bag) 1,000 ml @ 75 mls/hr [id number] 06/11/16 09:00 06/11/16 13:38 DC 06/11/16 08:40 75 MLS/HR Vitamin D (Vitamin D3) 1,000 unit DAILY 06/19/16 09:00 06/19/16 09:25 1,000 UNIT Lab Laboratory Tests Test 06/19/16 05:30 Sodium Level 145mmol/L (136-145) Potassium Level 3.9mmol/L (3.5-5.1) Chloride Level 110mmol/L (98-107) Carbon Dioxide Level 26mmol/L (21-32) Anion Gap 9 (6-14) Blood Urea Nitrogen 40mg/dL (7-20) Creatinine 3.5mg/dL (0.6-1.0) Estimated GFR (Cockcroft-Gault) 15.5 Glucose Level 100mg/dL (70-99) Calcium Level 8.7mg/dL (8.5-10.1) Phosphorus Level 4.6mg/dL (2.6-4.7) Albumin 1.7g/dL (3.4-5.0) JANE GUZMAN MD Jun 19, 2016 11:36
[2016-06-19] MEDS: LOSARTAN POTASSIUM 50 MG TABLET. PO SCH (11:48)
--- NOTE | 2016-06-19 13:17 | DISCH ---
DISCHARGE INSTRUCTIONS Condition on Discharge Condition on Discharge: Stable Activity After Discharge Activity Instructions for Disc: Activity as tolerated Diet after Discharge Diet after Discharge: Cardiac, Renal Non-Dialysis Checks after Discharge Checks after discharge: Check blood press - daily Contacting the DRNarcisa after DC Call your doctor for: If your condition worsens Follow-Up Follow up with: Dr Marcelino in 1-2 weeks. Cardioplogy per their rec Follow Up With: Dr Mercer, renal per his rec CURTIS MARCELINO MD Jun 19, 2016 13:17
[2016-06-19] MEDS ORDERED: ERGO500012 PO (13:29)
[2016-06-19] MEDS ORDERED: FURO40TA4 PO (13:29)
[2016-06-19] MEDS ORDERED: DILT300C23 PO (13:29)
[2016-06-19] MEDS ORDERED: CHOL10002 PO (13:29)
[2016-06-19] MEDS ORDERED: CLON1PAT3 TD (13:29)
[2016-06-19] MEDS ORDERED: FERR-26 PO (13:29)
[2016-06-19] MEDS ORDERED: METO25TA4 PO (13:29)
[2016-06-19] MEDS ORDERED: ALLO100T PO (13:29)
[2016-06-19] MEDS ORDERED: LOSA100T6 PO (13:29)
[2016-06-19 15:00] VITALS: BP 141/67
[2016-06-19] MEDS: FUROSEMIDE 40 MG TABLET. PO SCH ×2 (16:00→16:18)
[2016-06-20] MEDS ORDERED: DILTIAZEM HCL 300 MG CAP.ER.24H. PO SCH (09:00)
== END 2016-06-19 17:20 | disposition home or self-care (01) | DRG 393 ==
LOC: ER 18:07 → 2 SOUTH 19:42
PROVIDERS: ADMIT Family Medicine; ATTEND Family Medicine
DX: K43.6 Other and unspecified ventral hernia with obstruction, without gangrene (principal); N17.0 Acute kidney failure with tubular necrosis; K85.90 Acute pancreatitis without necrosis or infection, unspecified; I48.92 Unspecified atrial flutter; N18.4 Chronic kidney disease, stage 4 (severe); Z68.43 Body mass index [BMI] 50.0-59.9, adult; D50.9 Iron deficiency anemia, unspecified; E11.22 Type 2 diabetes mellitus with diabetic chronic kidney disease; E55.9 Vitamin D deficiency, unspecified; E66.01 Morbid (severe) obesity due to excess calories; E83.42 Hypomagnesemia; E86.0 Dehydration; I12.9 Hypertensive chronic kidney disease with stage 1 through stage 4 chronic kidney disease, or unspecified chronic kidney disease; I48.91 Unspecified atrial fibrillation; I89.0 Lymphedema, not elsewhere classified; J44.9 Chronic obstructive pulmonary disease, unspecified; K57.30 Diverticulosis of large intestine without perforation or abscess without bleeding; M10.9 Gout, unspecified; Z82.49 Family history of ischemic heart disease and other diseases of the circulatory system; Z84.1 Family history of disorders of kidney and ureter; Z85.42 Personal history of malignant neoplasm of other parts of uterus; Z87.891 Personal history of nicotine dependence; Z90.49 Acquired absence of other specified parts of digestive tract; Z90.710 Acquired absence of both cervix and uterus; Z98.84 Bariatric surgery status; M19.90 Unspecified osteoarthritis, unspecified site
CPT/HCPCS: 36415; 71010; 74000; 74022; 74176; 78452; 80048; 80053; 80061; 80069; 80076; 81001; 82306; 82570; 82575; 82728; 82947; 83540; 83550; 83605; 83690; 83735; 83880; 83970; 84156; 84443; 84484; 85027; 85045; 85610; 93005; 93017; 93306; 94250; 94640; 94760; 96361; 96374; 96375; A9500; J0360; J0881; J1170; J1756; J1815; J1940; J2405; J2785; J3475; J3490; J7030; J7040; J7060; 97530; 99285-25

== ENCOUNTER 2016-12-10 00:19 | Inpatient (IN) | payer BC, MEDICAID ==
[~2016-12-10] VITALS: Ht 167.6 cm; Wt 131.3 kg
[~2016-12-10 00:19] MED LIST changes: +ALLO100T PO; +CHOL10002 PO; +CLON1PAT3 TD; +DILT300C23 PO; +ERGO500027 PO; +FERR-26 PO; +LOSA100T6 PO; +METO25TA4 PO
--- NOTE | 2016-12-10 00:51 | PHYS DOC ---
Past Medical History Past Medical History: Asthma, COPD, Diabetes-Type II, Hypertension, Pancreatitis, UTI Additional Past Medical Histor: Gout Past Surgical History: Gastric Bypass, Hysterectomy, Other Additional Past Surgical Histo: Gastric bypass, hernia Alcohol Use: None Drug Use: None Adult General Chief Complaint Chief Complaint: ABDOMINAL PAIN HPI HPI Patient is a 71 year old female who presents with complaint of abdominal pain. Patient states her symptoms started approximately 4-5 hours prior to arrival. Patient states that the pain is in the upper portion of her abdomen. Patient has history of morbid obesity, chronic kidney disease, and ventral hernia. Patient was recently admitted the hospital in May 2016 for treatment of possible small bowel obstruction. The patient was evaluated by Dr. Villavicencio in general surgery. The patient did not require surgical intervention at that time and her symptoms resolved with medical treatment. Patient states that her pain currently as 9 out of 10. Patient states that she has not been able to eat or drink anything throughout the day due to worsening nausea and has had at least 2 episodes of vomiting. Patient denies any known fevers. Patient follows a Dr. Marcelino for primary care. Review of Systems Review of Systems Constitutional: Denies fever or chills [] Eyes: Denies change in visual acuity, redness, or eye pain [] HENT: Denies nasal congestion or sore throat [] Respiratory: Denies cough or shortness of breath [] Cardiovascular: Denies chest pain or edema[] GI: Abdominal pain, nausea, vomiting, denies bloody stools or diarrhea [] : Denies dysuria or hematuria [] Musculoskeletal: Denies back pain or joint pain [] Integument: Denies rash or skin lesions [] Neurologic: Denies headache, focal weakness or sensory changes [] Current Medications Current Medications Current Medications Medications (Trade) Dose Ordered Sig/Helen Start Time Stop Time Status Last Admin Dose Admin Fentanyl Citrate (Fentanyl 2ml Vial) 50 mcg PRN Q15MIN PRN 12/10/16 01:00 12/11/16 00:59 12/10/16 00:55 50 MCG Ondansetron HCl (Zofran) 4 mg 1X ONCE 12/10/16 01:00 12/10/16 01:01 DC 12/10/16 00:55 4 MG Sodium Chloride 500 ml @ 500 mls/hr 1X ONCE 12/10/16 01:00 12/10/16 01:59 DC 12/10/16 00:55 500 MLS/HR Allergies Allergies Allergies Coded Allergies Type Severity Reaction Last Updated Verified No Known Drug Allergies 02/13/14 No Physical Exam Physical Exam Constitutional: Alert, afebrile, morbidly obese, appears in mild to moderate discomfort. [] HENT: Normocephalic, atraumatic, bilateral external ears normal, oropharynx moist, no oral exudates, nose normal. [] Eyes: PERRLA, EOMI, conjunctiva normal, no discharge. [] Neck: Normal range of motion, no tenderness, supple, no stridor. [] Cardiovascular: Tachycardia, regular rhythm, no murmur [] Lungs & Thorax: Bilateral breath sounds clear to auscultation [] Abdomen: Bowel sounds normal, soft, bilateral upper quadrant tenderness to palpation with mild guarding, palpable ventral hernia which is reducible and minimally tender. [] Skin: Warm, dry, no erythema, no rash. [] Back: No tenderness, no CVA tenderness. [] Extremities: No tenderness, no cyanosis, no clubbing, ROM intact, no edema. [] Neurologic: Alert and oriented X 3, normal motor function, normal sensory function, no focal deficits noted. [] Current Patient Data Vital Signs Vital Signs Date Time Temp Pulse Resp B/P (MAP) Pulse Ox O2 Delivery O2 Flow Rate FiO2 12/10/16 02:19 96 18 174/78 (110) 99 Nasal Cannula 2.0 12/10/16 00:39 98.7 98.7 Lab Values Laboratory Tests Test 12/10/16 00:37 12/10/16 00:41 Urine Collection Type Unknown Urine Color Yellow Urine Clarity Clear Urine pH 5.5 Urine Specific [place] 1.020 Urine Protein >=300 mg/dL (NEG-TRACE) Urine Glucose (UA) 250 mg/dL (NEG) Urine Ketones (Stick) Negative mg/dL (NEG) Urine Blood Small (NEG) Urine Nitrite Negative (NEG) Urine Bilirubin Negative (NEG) Urine Urobilinogen Dipstick 0.2 mg/dL (0.2 mg/dL) Urine Leukocyte Esterase Negative (NEG) Urine RBC Occ /HPF (0-2) Urine WBC 1-4 /HPF (0-4) Urine Squamous Epithelial Cells Many /LPF Urine Amorphous Sediment Present /HPF Urine Bacteria Moderate /HPF (0-FEW) Urine Hyaline Casts Many /HPF Urine Granular Casts Moderate /HPF Urine Mucus Marked /LPF White Blood Count 9.2 x10^3/uL (4.0-11.0) Red Blood Count 4.18 x10^6/uL (3.50-5.40) Hemoglobin 12.2 g/dL (12.0-15.5) Hematocrit 37.1 % (36.0-47.0) Mean Corpuscular Volume 89 fL (79-100) Mean Corpuscular Hemoglobin 29 pg (25-35) Mean Corpuscular Hemoglobin Concent 33 g/dL (31-37) Red Cell Distribution Width 16.7 % (11.5-14.5) H Platelet Count 214 x10^3/uL (140-400) Neutrophils (%) (Auto) 73 % (31-73) Lymphocytes (%) (Auto) 21 % (24-48) L Monocytes (%) (Auto) 5 % (0-9) Eosinophils (%) (Auto) 1 % (0-3) Basophils (%) (Auto) 1 % (0-3) Neutrophils # (Auto) 6.7 x10^3uL (1.8-7.7) Lymphocytes # (Auto) 1.9 x10^3/uL (1.0-4.8) Monocytes # (Auto) 0.5 x10^3/uL (0.0-1.1) Eosinophils # (Auto) 0.1 x10^3/uL (0.0-0.7) Basophils # (Auto) 0.0 x10^3/uL (0.0-0.2) Sodium Level 143 mmol/L (136-145) Potassium Level 4.7 mmol/L (3.5-5.1) Chloride Level 107 mmol/L (98-107) Carbon Dioxide Level 26 mmol/L (21-32) Anion Gap 10 (6-14) Blood Urea Nitrogen 56 mg/dL (7-20) H Creatinine 2.8 mg/dL (0.6-1.0) H Estimated GFR (Cockcroft-Gault) 20.1 BUN/Creatinine Ratio 20 (6-20) Glucose Level 142 mg/dL (70-99) H Lactic Acid Level 1.4 mmol/L (0.4-2.0) Calcium Level 9.6 mg/dL (8.5-10.1) Total Bilirubin 0.5 mg/dL (0.2-1.0) Aspartate Amino Transferase (AST) 19 U/L (15-37) Alanine Aminotransferase (ALT) 15 U/L (14-59) Alkaline Phosphatase 99 U/L (46-116) Total Protein 8.3 g/dL (6.4-8.2) H Albumin 3.1 g/dL (3.4-5.0) L Albumin/Globulin Ratio 0.6 (1.0-1.7) L Lipase 1062 U/L (73-393) H Laboratory Tests 12/10/16 00:41 Laboratory Tests 12/10/16 00:41 EKG EKG Interpreted by me: Heart rate 111, sinus tachycardia, normal intervals, normal axis, no acute ST/T-wave abnormalities present[] Radiology/Procedures Radiology/Procedures 3 view acute abdominal series interpreted by me: Nonobstructive bowel gas pattern, no free air under the diaphragm, no pulmonary infiltrates or effusions , normal cardiac silhouette[] Course & Med Decision Making Course & Med Decision Making Pertinent Labs and Imaging studies reviewed. (See chart for details) Patient started on IV fluids, fentanyl, and Zofran. Patient found to have evidence of acute pancreatitis based off of elevated lipase levels. The patient' s vital signs have improved, however the patient remains complaining of abdominal pain and is unable to tolerate oral intake at this time. Patient will be admitted for continued IV hydration and pain management. Patient admitted to Dr. Gonzales. Eddie Disclaimer Eddie Disclaimer This electronic medical record was generated, in whole or in part, using a voice recognition dictation system. Departure Departure Impression: Primary Impression: Pancreatitis, acute Additional Impressions: Morbid obesity Chronic kidney disease, stage IV (severe) Type 2 diabetes mellitus Nausea and vomiting Disposition: ADMITTED INPATIENT Admitting Physician: Nima Gonzales Condition: GUARDED Referrals: CURTIS MARCELINO MD (PCP) Problem Qualifiers Primary Impression: Pancreatitis, acute Pancreatitis type: unspecified pancreatitis type Acute pancreatitis complication: unspecified Qualified Codes: K85.90 - Acute pancreatitis without necrosis or infection, unspecified Additional Impressions: Type 2 diabetes mellitus Diabetes mellitus complication status: with unspecified complications Diabetes mellitus 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
[2016-12-10 00:55] LABS: BASO % 1 % (0-3); EOS % 1 % (0-3); HEMATOCRIT 37.1 % (36.0-47.0); HEMOGLOBIN 12.2 g/dL (12.0-15.5); LYMPH # 1.9 x10^3/uL (1.0-4.8); LYMPH % 21 % (24-48); MEAN CORPUSCULAR HEMOGLOBIN 29 pg (25-35); MEAN CORPUSCULAR HGB CONC 33 g/dL (31-37); MEAN CORPUSCULAR VOLUME 89 fL (79-100); MONO % 5 % (0-9); NEUT % 73 % (31-73); PLATELET COUNT 214 x10^3/uL (140-400); RED BLOOD COUNT 4.18 x10^6/uL (3.50-5.40); RED CELL DISTRIBUTION WIDTH 16.7 % (11.5-14.5); WHITE BLOOD COUNT 9.2 x10^3/uL (4.0-11.0)
[2016-12-10 00:55] LABS: BILIRUBIN,URINE NEGATIVE (NEG); GLUCOSE,URINE 250 mg/dL (NEG); NITRITE,URINE NEGATIVE (NEG); PH,URINE 5.5; PROTEIN,URINE >=300 mg/dL (NEG-TRACE); UROBILINOGEN,URINE 0.2 mg/dL (0.2 mg/dL)
[2016-12-10] MEDS ORDERED: ONDANSETRON PF 4 MG/2 ML VIAL. IV ONE (01:00)
[2016-12-10] MEDS ORDERED: fentaNYL PF VIAL 100 MCG/2 ML VIAL IV PRN (01:00)
[2016-12-10] MEDS ORDERED: IV NORMAL SALINE 500ML BAG 500 ML IV ONE (01:00)
[2016-12-10 01:02] LABS: CALCIUM 9.6 mg/dL (8.5-10.1); CREATININE 2.8 mg/dL (0.6-1.0); GFR 20.1; POTASSIUM 4.7 mmol/L (3.5-5.1)
[2016-12-10 01:08] LABS: BACTERIA,URINE MODERATE /HPF (0-FEW); RBC,URINE OCC /HPF (0-2); SQUAMOUS EPITHELIAL CELL,UR MANY /LPF
[2016-12-10 01:08] LABS: ALBUMIN 3.1 g/dL (3.4-5.0); ALBUMIN/GLOBULIN RATIO 0.6 (1.0-1.7); TOTAL BILIRUBIN 0.5 mg/dL (0.2-1.0); TOTAL PROTEIN 8.3 g/dL (6.4-8.2)
[2016-12-10] MEDS ORDERED: ONDANSETRON PF 4 MG/2 ML VIAL. IV PRN (03:15)
[2016-12-10] MEDS ORDERED: ACETAMINOPHEN 325 MG TABLET. PO PRN (03:15)
[2016-12-10] MEDS: IV NORMAL SALINE 1000ML BAG 1,000 ML IV SCH ×2 (03:15→11:15)
[2016-12-10 03:30] VITALS: BP 161/70
[2016-12-10] MEDS ORDERED: ALLO300T PO (03:49)
[2016-12-10] MEDS ORDERED: POTASSIUM CHLO10 MEQ PO (03:49)
[2016-12-10] MEDS ORDERED: VALS1TAB3 PO (03:51)
[2016-12-10] MEDS: fentaNYL PF VIAL 100 MCG/2 ML VIAL IV PRN ×2 (03:56→09:28)
[2016-12-10 07:00] VITALS: BP 160/75
--- NOTE | 2016-12-10 07:36 | RAD ---
Indication abdominal pain. A single view of the chest as well as flat and upright films of the abdomen were obtained. Comparison is made to films obtained 06/12/2016. The heart and pulmonary vessels are similar. There is unchanged elevation of the right hemidiaphragm. An acute finding in the chest is not seen. There is no free air. The abdominal gas pattern is grossly normal. No organomegaly or abnormal calculi are seen. IMPRESSION: No acute finding seen in the chest or abdomen on plain films.
--- NOTE | 2016-12-10 07:41 | EKG ---
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
--- NOTE | 2016-12-10 09:50 | PDOC2 ---
GI CONSULT Reason For Consult: Pancreatitis HPI: HPI: 71 y/o female who we have seen before for upper abd pain, vomiting, and elevated lipase. CT in 08/2015 showed large ventral abd wall hernia w/ herniated /dilated loops of bowel (concern for incarceration) - normal pancreas noted at that time. Symptoms resolved, surgery not pursued. Symptoms recurred yesterday evening while cleaning peppers (upper/right-sided abd pain w/ vomiting ). Currently feeling better, about to eat regular breakfast. Labs significant for lipase 1062 w/ Cr 2.8. Acute abd series unrevealing. H/o indigestion treated w/ Tums PRN. No diarrhea, constipation, or bleeding. No previous EGD or colonoscopy. No GB or liver history. S/p hysterectomy for uterine cancer and previous ventral hernia repair. PMH: PMH: TIA/CVA, A Fib, CAD, HTN, COPD, DM, CKD, arthritis, gout, uterine cancer s/p total hysterectomy, ventral hernia repair FH: Family History: No pertinent hx Social History: ALCOHOL: none Drugs: None ROS: GEN: Denies fevers, chills, sweats HEENT: Denies blurred vision, sore throat CV: Denies chest pain RESP: Denies shortness of air, cough GI: Per HPI : Denies hematuria, dysuria ENDO: Denies weight changes NEURO: Denies confusion, dizziness MSK: Denies weakness, joint pain/swelling SKIN: Denies jaundice, pruritus Vitals: Vitals: Vital Signs Date Time Temp Pulse Resp B/P (MAP) Pulse Ox O2 Delivery O2 Flow Rate FiO2 12/10/16 09:28 Room Air 12/10/16 07:00 98.8 98 19 160/75 (103) 93 98.8 12/10/16 02:19 2.0 Labs: Labs: Laboratory Tests Test 12/10/16 00:37 12/10/16 00:41 12/10/16 07:50 Urine Collection Type Unknown Urine Color Yellow Urine Clarity Clear Urine pH 5.5 Urine Specific [place] 1.020 Urine Protein >=300 mg/dL (NEG-TRACE) Urine Glucose (UA) 250 mg/dL (NEG) Urine Ketones (Stick) Negative mg/dL (NEG) Urine Blood Small (NEG) Urine Nitrite Negative (NEG) Urine Bilirubin Negative (NEG) Urine Urobilinogen Dipstick 0.2 mg/dL (0.2 mg/dL) Urine Leukocyte Esterase Negative (NEG) Urine RBC Occ /HPF (0-2) Urine WBC 1-4 /HPF (0-4) Urine Squamous Epithelial Cells Many /LPF Urine Amorphous Sediment Present /HPF Urine Bacteria Moderate /HPF (0-FEW) Urine Hyaline Casts Many /HPF Urine Granular Casts Moderate /HPF Urine Mucus Marked /LPF White Blood Count 9.2 x10^3/uL (4.0-11.0) Red Blood Count 4.18 x10^6/uL (3.50-5.40) Hemoglobin 12.2 g/dL (12.0-15.5) Hematocrit 37.1 % (36.0-47.0) Mean Corpuscular Volume 89 fL (79-100) Mean Corpuscular Hemoglobin 29 pg (25-35) Mean Corpuscular Hemoglobin Concent 33 g/dL (31-37) Red Cell Distribution Width 16.7 % (11.5-14.5) Platelet Count 214 x10^3/uL (140-400) Neutrophils (%) (Auto) 73 % (31-73) Lymphocytes (%) (Auto) 21 % (24-48) Monocytes (%) (Auto) 5 % (0-9) Eosinophils (%) (Auto) 1 % (0-3) Basophils (%) (Auto) 1 % (0-3) Neutrophils # (Auto) 6.7 x10^3uL (1.8-7.7) Lymphocytes # (Auto) 1.9 x10^3/uL (1.0-4.8) Monocytes # (Auto) 0.5 x10^3/uL (0.0-1.1) Eosinophils # (Auto) 0.1 x10^3/uL (0.0-0.7) Basophils # (Auto) 0.0 x10^3/uL (0.0-0.2) Sodium Level 143 mmol/L (136-145) Potassium Level 4.7 mmol/L (3.5-5.1) Chloride Level 107 mmol/L (98-107) Carbon Dioxide Level 26 mmol/L (21-32) Anion Gap 10 (6-14) Blood Urea Nitrogen 56 mg/dL (7-20) Creatinine 2.8 mg/dL (0.6-1.0) Estimated GFR (Cockcroft-Gault) 20.1 BUN/Creatinine Ratio 20 (6-20) Glucose Level 142 mg/dL (70-99) Lactic Acid Level 1.4 mmol/L (0.4-2.0) Calcium Level 9.6 mg/dL (8.5-10.1) Total Bilirubin 0.5 mg/dL (0.2-1.0) Aspartate Amino Transf (AST/SGOT) 19 U/L (15-37) Alanine Aminotransferase (ALT/SGPT) 15 U/L (14-59) Alkaline Phosphatase 99 U/L (46-116) Total Protein 8.3 g/dL (6.4-8.2) Albumin 3.1 g/dL (3.4-5.0) Albumin/Globulin Ratio 0.6 (1.0-1.7) Lipase 1062 U/L (73-393) Glucose (Fingerstick) 102 mg/dL (70-99) Allergies: Coded Allergies: No Known Drug Allergies (Unverified , 02/13/14) Medications: Current Medications Medications (Trade) Dose Ordered Sig/Helen Route PRN Reason Start Time Stop Time Status Last Admin Dose Admin Fentanyl Citrate (Fentanyl 2ml Vial) 50 mcg PRN Q15MIN PRN IV PAIN GREATER THAN 3/10 12/10/16 01:00 12/11/16 00:59 12/10/16 00:55 Ondansetron HCl (Zofran) 4 mg 1X ONCE IV 12/10/16 01:00 12/10/16 01:01 DC 12/10/16 00:55 Sodium Chloride 500 ml @ 500 mls/hr 1X ONCE IV 12/10/16 01:00 12/10/16 01:59 DC 12/10/16 00:55 Ondansetron HCl (Zofran) 4 mg PRN Q8HRS PRN IV NAUSEA/VOMITING 12/10/16 03:15 12/11/16 03:14 12/10/16 09:28 Fentanyl Citrate (Fentanyl 2ml Vial) 50 mcg PRN Q2HR PRN IV PAIN 12/10/16 03:15 12/11/16 03:14 12/10/16 09:28 Imaging: Imaging: Acute Abd Series IMPRESSION: No acute finding seen in the chest or abdomen on plain films. PE: GEN: NAD, obese HEENT: Atraumatic, PERRL LUNGS: clear HEART: tachycardic ABD: right periumbilical firmness/protrusion w/ tenderness, BS+ EXTREMITY: No edema SKIN: No rashes, no jaundice NEURO/PSYCH: A & O 3 A/P: A/P: Abd pain, vomiting - better Large ventral incisional hernia -concern for incarcerated bowel in the past, no surgery pursued Elevated lipase -h/o this w/ normal pancreas on past CT Dyspepsia -long history, no previous EGD, treated w/ Tums CRC screen -no previous colonoscopy CKD -- D/w RN - hold breakfast for CT A/P. Not clearly pancreatitis. ?surg consult SHAWN WOODARD Dec 10, 2016 09:50
[2016-12-10 11:00] VITALS: BP 142/76
[2016-12-10] MEDS ORDERED: CONTRAST GIVEN MC PRN (11:15)
[2016-12-10] MEDS ORDERED: IOHEXOL 240 MG/ML 50ML VIAL. PO ONE (11:30)
[2016-12-10] MEDS ORDERED: IV NORMAL SALINE 1000ML BAG 1,000 ML IV ONE (12:00)
[2016-12-10] MEDS ORDERED: ALBUTEROL SULFATE 2.5 MG/3 ML NEBU. NEB PRN (12:15)
[2016-12-10] MEDS ORDERED: cloNIDine TTS-3 1 PATCH PATCH.TDWK TD SCH (13:00)
[2016-12-10] MEDS: LOSARTAN POTASSIUM 50 MG TABLET. PO SCH (13:26)
[2016-12-10] MEDS: CHOLECALCIFEROL (VITAMIN D3) 1,000 UNIT TABLET PO SCH (13:26)
[2016-12-10] MEDS: FERROUS SULFATE 325 MG TABLET. PO SCH (13:26)
[2016-12-10] MEDS: ALLOPURINOL 100 MG TABLET. PO SCH (13:26)
[2016-12-10 15:00] VITALS: BP 121/52
--- NOTE | 2016-12-10 15:45 | RAD ---
EXAM: CT abdomen/pelvis without contrast. HISTORY: Abdominal hernia. TECHNIQUE: Computed tomography of the abdomen and pelvis was performed without intravenous contrast. COMPARISON: 06/10/2016. FINDINGS: Lung windows through the visualized portions of the bases reveal mild atelectasis. There are atherosclerotic calcifications of the coronary arteries. Bone windows reveal no suspicious lesions. The liver, spleen, pancreas, adrenal glands and left kidney are unremarkable without contrast. Cortical scars are suspected along the right kidney. A gallstone is also suspected. There is a large midline lower abdominal hernia containing multiple nonobstructed small bowel loops and a portion of the transverse colon. Anastomotic suture lines are seen along the distal small bowel within the right aspect of the hernia. There is no obstruction, but there is a transition to decompressed small bowel loops just proximal to the ileocecal valve. Sigmoid diverticulosis is moderate to severe. The uterus is surgically absent. There are no pathologically enlarged lymph nodes. IMPRESSION: 1. Large midline lower anterior abdominal wall hernia containing multiple small bowel loops and the transverse colon. There is no obstruction, but there is a transition point along the distal small bowel just proximal to the ileocecal valve. 2. Suspect cholelithiasis. *One or more of the following individualized dose reduction techniques were utilized for this examination: 1. Automated exposure control. 2. Adjustment of the mA and/or kV according to patient size. 3. Use of iterative reconstruction technique.
[2016-12-10] MEDS: FUROSEMIDE 40 MG TABLET. PO SCH (17:30)
--- NOTE | 2016-12-10 18:43 | HP ---
ADMIT DATE: 12/10/2016 CHIEF COMPLAINT: Abdominal pain. HISTORY OF PRESENT ILLNESS: The patient is a 71-year-old obese woman with past medical history of pancreatitis, COPD as well as gastric bypass who presented to the Emergency Room with abdominal pain. She relates that symptoms started just a few hours prior to the ER visit. She locates the pain in the upper mid abdomen, rated it in the Emergency Room as a 9/10 and has been unable to eat and drink since onset of pain. She admits to having vomited twice, does not feel particularly nauseous. In the Emergency Room, she was found with a lipase of 1062. CT of the abdomen is pending. PAST MEDICAL HISTORY: Previous history of pancreatitis, COPD, hypertension, diabetes mellitus (diet controlled), CKD stage 3-4, gout, history of uterine cancer, status post JOSE and chronic ventral abdominal hernia. FAMILY HISTORY: Father with heart disease. SOCIAL HISTORY: Quit smoking in the 1980s. Denies any alcohol use. Lives at home with her daughter, mostly wheelchair bound. ALLERGIES: No known drug allergies. HOME MEDICATIONS: Reconciled with MAR. REVIEW OF SYSTEMS: Unable to obtain, the patient is fast asleep after a busy night. PHYSICAL EXAMINATION: VITAL SIGNS: From today show a blood pressure of 142/76, heart rate at 113. She is afebrile, respiratory rate at 20. GENERAL: This is a 71-year-old obese, woman, sleeping fast, not responding to verbal or tactile input. HEENT: Shows moist oral mucosa. NECK: Supple. LUNGS: Fairly clear anteriorly. HEART: Regular rate and rhythm. ABDOMEN: Has positive bowel sounds, soft, nontender. EXTREMITIES: Show no edema. SKIN: Warm, soft and dry. LABORATORY DATA: CBC with a WBC of 9.2, hemoglobin 12.2, platelets of 214, normal differential. Chemistries with a BUN and creatinine of 56 and 2.8; creatinine essentially at her baseline, BUN slightly above. Electrolytes within normal limits. LFTs normal. Albumin at 3.1. RADIOGRAPHIC FINDINGS: Acute abdominal series shows no acute finding seen in chest, abdomen on plain films. ASSESSMENT AND PLAN: The patient is a 71-year-old woman admitted with abdominal pain ostensibly due to pancreatitis with elevated liver function tests. 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 We will obtain CT of her abdomen to elucidate and will be kept n.p.o. for the time being. Start on IV fluids. We will switch medications as needed to IV, avoid p.o. for the time being. May need PPN if prolonged n.p.o. status. The patient does have heart history as well. We will monitor her for the time being as she is asymptomatic from that standpoint. Restart home medications when p.o. is reestablished. KHOI ZAMAN MD DR: UR/nts JOB#: [id number] / [id number] CURTIS Cordoba MD MTDD
[2016-12-10 19:30] VITALS: BP 111/44
[2016-12-10 23:35] VITALS: BP 146/56
[2016-12-11 03:35] VITALS: BP 127/53
[2016-12-11 05:40] LABS: BASO % 0 % (0-3); EOS % 2 % (0-3); HEMATOCRIT 28.7 % (36.0-47.0); HEMOGLOBIN 9.2 g/dL (12.0-15.5); LYMPH # 2.7 x10^3/uL (1.0-4.8); LYMPH % 28 % (24-48); MEAN CORPUSCULAR HEMOGLOBIN 29 pg (25-35); MEAN CORPUSCULAR HGB CONC 32 g/dL (31-37); MEAN CORPUSCULAR VOLUME 90 fL (79-100); MONO % 8 % (0-9); NEUT % 61 % (31-73); PLATELET COUNT 154 x10^3/uL (140-400); RED BLOOD COUNT 3.18 x10^6/uL (3.50-5.40); RED CELL DISTRIBUTION WIDTH 16.7 % (11.5-14.5); WHITE BLOOD COUNT 9.6 x10^3/uL (4.0-11.0)
[2016-12-11 05:59] LABS: CALCIUM 8.4 mg/dL (8.5-10.1); CREATININE 3.2 mg/dL (0.6-1.0); GFR 17.2; POTASSIUM 4.6 mmol/L (3.5-5.1)
[2016-12-11 07:00] VITALS: BP 124/59
--- NOTE | 2016-12-11 08:13 | RAD ---
Indication cortical CT examination for cholelithiasis. Grayscale imaging was performed. Examination was targeted to the right upper quadrant. The examination is limited by patient body habitus. The pancreas is largely obscured. The visualized inferior vena cava appeared normal. There is increased attenuation of the ultrasound beam by the liver compatible with fatty infiltration. A focal mass lesion in the visualized liver is not seen. The common bile duct diameter of approximately 6 mm is within normal limits. There are probable small stones in the dependent portion of the gallbladder. The right kidney appeared grossly normal. IMPRESSION: Limited study. Fatty infiltration of the liver. Poor visualization of the pancreas. Probable small stones in the dependent portion of the gallbladder.
[2016-12-11] MEDS ORDERED: INFLUENZA VAX SCREEN BY RX. MC ONE (10:00)
[2016-12-11 11:08] VITALS: BP 124/52
[2016-12-11] MEDS ORDERED: PNEUMOC CONJ VACC 23-VALENT 0.5 ML VIAL. VAX IM ONE (11:15)
--- NOTE | 2016-12-11 11:29 | PDOC ---
Subjective: Subjective: Pain around hernia. Loose stools. No vomiting. Objective: Vital Signs: Vital Signs Date Time Temp Pulse Resp B/P (MAP) Pulse Ox O2 Delivery O2 Flow Rate FiO2 12/11/16 11:08 98.6 87 18 124/52 (76) 93 Room Air 98.6 Labs: Laboratory Tests Test 12/11/16 05:00 12/11/16 07:56 White Blood Count 9.6 x10^3/uL Red Blood Count 3.18 x10^6/uL Hemoglobin 9.2 g/dL Hematocrit 28.7 % Mean Corpuscular Volume 90 fL Mean Corpuscular Hemoglobin 29 pg Mean Corpuscular Hemoglobin Concent 32 g/dL Red Cell Distribution Width 16.7 % Platelet Count 154 x10^3/uL Neutrophils (%) (Auto) 61 % Lymphocytes (%) (Auto) 28 % Monocytes (%) (Auto) 8 % Eosinophils (%) (Auto) 2 % Basophils (%) (Auto) 0 % Neutrophils # (Auto) 5.9 x10^3uL Lymphocytes # (Auto) 2.7 x10^3/uL Monocytes # (Auto) 0.8 x10^3/uL Eosinophils # (Auto) 0.2 x10^3/uL Basophils # (Auto) 0.0 x10^3/uL Sodium Level 144 mmol/L Potassium Level 4.6 mmol/L Chloride Level 110 mmol/L Carbon Dioxide Level 27 mmol/L Anion Gap 7 Blood Urea Nitrogen 60 mg/dL Creatinine 3.2 mg/dL Estimated GFR (Cockcroft-Gault) 17.2 Glucose Level 86 mg/dL Calcium Level 8.4 mg/dL Glucose (Fingerstick) 85 mg/dL Imaging: CT A/P w/ oral contrast FINDINGS: Lung windows through the visualized portions of the bases reveal mild atelectasis. There are atherosclerotic calcifications of the coronary arteries. Bone windows reveal no suspicious lesions. The liver, spleen, pancreas, adrenal glands and left kidney are unremarkable without contrast. Cortical scars are suspected along the right kidney. A gallstone is also suspected. There is a large midline lower abdominal hernia containing multiple nonobstructed small bowel loops and a portion of the transverse colon. Anastomotic suture lines are seen along the distal small bowel within the right aspect of the hernia. There is no obstruction, but there is a transition to decompressed small bowel loops just proximal to the ileocecal valve. Sigmoid diverticulosis is moderate to severe. The uterus is surgically absent. There are no pathologically enlarged lymph nodes. IMPRESSION: 1. Large midline lower anterior abdominal wall hernia containing multiple small bowel loops and the transverse colon. There is no obstruction, but there is a transition point along the distal small bowel just proximal to the ileocecal valve. 2. Suspect cholelithiasis. RUQ US The pancreas is largely obscured. The visualized inferior vena cava appeared normal. There is increased attenuation of the ultrasound beam by the liver compatible with fatty infiltration. A focal mass lesion in the visualized liver is not seen. The common bile duct diameter of approximately 6 mm is within normal limits. There are probable small stones in the dependent portion of the gallbladder. The right kidney appeared grossly normal. IMPRESSION: Limited study. Fatty infiltration of the liver. Poor visualization of the pancreas. Probable small stones in the dependent portion of the gallbladder. PE: GEN: NAD, sitting in chair LUNGS: CTAB HEART: RRR ABD: tenderness around ventral hernia NEURO/PSYCH: A & O 3 A/P: Abd pain - better Vomiting - resolved Large VIH -contains loops of small bowel and transverse colon -no obstruction on CT, note transition point Elevated lipase -h/o this w/ normal pancreas on CT Cholelithiasis CKD -- Try clears. Although she would be a poor surgical candidate, might consider surgical opinion. SHAWN WOODARD Dec 11, 2016 11:29
[2016-12-11] MEDS: CHOLECALCIFEROL (VITAMIN D3) 1,000 UNIT TABLET PO SCH (14:21)
[2016-12-11] MEDS: ALLOPURINOL 100 MG TABLET. PO SCH (14:21)
[2016-12-11] MEDS: FUROSEMIDE 40 MG TABLET. PO SCH ×2 (14:21→16:00)
[2016-12-11] MEDS: FERROUS SULFATE 325 MG TABLET. PO SCH (14:21)
[2016-12-11] MEDS: LOSARTAN POTASSIUM 50 MG TABLET. PO SCH (14:22)
[2016-12-11 14:43] VITALS: BP 185/76
--- NOTE | 2016-12-11 17:17 | PDOC ---
PROGRESS NOTES Chief Complaint Chief Complaint Abd pain ASSESSMENT AND PLAN: 1. Pancreatitis: clinically improved. appreciate GI input: advance diet as tolerated 2. LARGE ventral hernia: containing transverse colon and small bowel. surg consult 3. Pain control: PO/IV available 4. DM2: very well controlled. 5. CKD3-4: at baseline. monitor closely History of Present Illness History of Present Illness sleeping, waking easily. abd pain mild. Vitals Vitals Vital Signs Date Time Temp Pulse Resp B/P (MAP) Pulse Ox O2 Delivery O2 Flow Rate FiO2 12/11/16 14:43 98.2 89 18 185/76 (112) 94 Room Air 98.2 Physical Exam General: Alert, Oriented X3, Cooperative, No acute distress Heart: Regular rate Lungs: Clear Abdomen: Normal bowel sounds, Other (mild TTP mid abd) Extremities: No edema Skin: No rashes Labs LABS Laboratory Tests Test 12/11/16 05:00 12/11/16 07:56 12/11/16 11:22 12/11/16 12:26 White Blood Count 9.6 x10^3/uL (4.0-11.0) Red Blood Count 3.18 x10^6/uL (3.50-5.40) Hemoglobin 9.2 g/dL (12.0-15.5) Hematocrit 28.7 % (36.0-47.0) Mean Corpuscular Volume 90 fL (79-100) Mean Corpuscular Hemoglobin 29 pg (25-35) Mean Corpuscular Hemoglobin Concent 32 g/dL (31-37) Red Cell Distribution Width 16.7 % (11.5-14.5) Platelet Count 154 x10^3/uL (140-400) Neutrophils (%) (Auto) 61 % (31-73) Lymphocytes (%) (Auto) 28 % (24-48) Monocytes (%) (Auto) 8 % (0-9) Eosinophils (%) (Auto) 2 % (0-3) Basophils (%) (Auto) 0 % (0-3) Neutrophils # (Auto) 5.9 x10^3uL (1.8-7.7) Lymphocytes # (Auto) 2.7 x10^3/uL (1.0-4.8) Monocytes # (Auto) 0.8 x10^3/uL (0.0-1.1) Eosinophils # (Auto) 0.2 x10^3/uL (0.0-0.7) Basophils # (Auto) 0.0 x10^3/uL (0.0-0.2) Sodium Level 144 mmol/L (136-145) Potassium Level 4.6 mmol/L (3.5-5.1) Chloride Level 110 mmol/L (98-107) Carbon Dioxide Level 27 mmol/L (21-32) Anion Gap 7 (6-14) Blood Urea Nitrogen 60 mg/dL (7-20) Creatinine 3.2 mg/dL (0.6-1.0) Estimated GFR (Cockcroft-Gault) 17.2 Glucose Level 86 mg/dL (70-99) Calcium Level 8.4 mg/dL (8.5-10.1) Glucose (Fingerstick) 85 mg/dL (70-99) 69 mg/dL (70-99) 70 mg/dL (70-99) Test 12/11/16 16:19 Glucose (Fingerstick) 82 mg/dL (70-99) Comment Review of Relevant I have reviewed the following items brent (where applicable) has been applied. Labs Laboratory Tests Test 12/10/16 00:37 12/10/16 00:41 12/10/16 07:50 12/11/16 05:00 Urine Collection Type Unknown Urine Color Yellow Urine Clarity Clear Urine pH 5.5 Urine Specific [place] 1.020 Urine Protein >=300 mg/dL (NEG-TRACE) Urine Glucose (UA) 250 mg/dL (NEG) Urine Ketones (Stick) Negative mg/dL (NEG) Urine Blood Small (NEG) Urine Nitrite Negative (NEG) Urine Bilirubin Negative (NEG) Urine Urobilinogen Dipstick 0.2 mg/dL (0.2 mg/dL) Urine Leukocyte Esterase Negative (NEG) Urine RBC Occ /HPF (0-2) Urine WBC 1-4 /HPF (0-4) Urine Squamous Epithelial Cells Many /LPF Urine Amorphous Sediment Present /HPF Urine Bacteria Moderate /HPF (0-FEW) Urine Hyaline Casts Many /HPF Urine Granular Casts Moderate /HPF Urine Mucus Marked /LPF White Blood Count 9.2 x10^3/uL (4.0-11.0) 9.6 x10^3/uL (4.0-11.0) Red Blood Count 4.18 x10^6/uL (3.50-5.40) 3.18 x10^6/uL (3.50-5.40) Hemoglobin 12.2 g/dL (12.0-15.5) 9.2 g/dL (12.0-15.5) Hematocrit 37.1 % (36.0-47.0) 28.7 % (36.0-47.0) Mean Corpuscular Volume 89 fL (79-100) 90 fL (79-100) Mean Corpuscular Hemoglobin 29 pg (25-35) 29 pg (25-35) Mean Corpuscular Hemoglobin Concent 33 g/dL (31-37) 32 g/dL (31-37) Red Cell Distribution Width 16.7 % (11.5-14.5) 16.7 % (11.5-14.5) Platelet Count 214 x10^3/uL (140-400) 154 x10^3/uL (140-400) Neutrophils (%) (Auto) 73 % (31-73) 61 % (31-73) Lymphocytes (%) (Auto) 21 % (24-48) 28 % (24-48) Monocytes (%) (Auto) 5 % (0-9) 8 % (0-9) Eosinophils (%) (Auto) 1 % (0-3) 2 % (0-3) Basophils (%) (Auto) 1 % (0-3) 0 % (0-3) Neutrophils # (Auto) 6.7 x10^3uL (1.8-7.7) 5.9 x10^3uL (1.8-7.7) Lymphocytes # (Auto) 1.9 x10^3/uL (1.0-4.8) 2.7 x10^3/uL (1.0-4.8) Monocytes # (Auto) 0.5 x10^3/uL (0.0-1.1) 0.8 x10^3/uL (0.0-1.1) Eosinophils # (Auto) 0.1 x10^3/uL (0.0-0.7) 0.2 x10^3/uL (0.0-0.7) Basophils # (Auto) 0.0 x10^3/uL (0.0-0.2) 0.0 x10^3/uL (0.0-0.2) Sodium Level 143 mmol/L (136-145) 144 mmol/L (136-145) Potassium Level 4.7 mmol/L (3.5-5.1) 4.6 mmol/L (3.5-5.1) Chloride Level 107 mmol/L (98-107) 110 mmol/L (98-107) Carbon Dioxide Level 26 mmol/L (21-32) 27 mmol/L (21-32) Anion Gap 10 (6-14) 7 (6-14) Blood Urea Nitrogen 56 mg/dL (7-20) 60 mg/dL (7-20) Creatinine 2.8 mg/dL (0.6-1.0) 3.2 mg/dL (0.6-1.0) Estimated GFR (Cockcroft-Gault) 20.1 17.2 BUN/Creatinine Ratio 20 (6-20) Glucose Level 142 mg/dL (70-99) 86 mg/dL (70-99) Lactic Acid Level 1.4 mmol/L (0.4-2.0) Calcium Level 9.6 mg/dL (8.5-10.1) 8.4 mg/dL (8.5-10.1) Total Bilirubin 0.5 mg/dL (0.2-1.0) Aspartate Amino Transf (AST/SGOT) 19 U/L (15-37) Alanine Aminotransferase (ALT/SGPT) 15 U/L (14-59) Alkaline Phosphatase 99 U/L (46-116) Total Protein 8.3 g/dL (6.4-8.2) Albumin 3.1 g/dL (3.4-5.0) Albumin/Globulin Ratio 0.6 (1.0-1.7) Lipase 1062 U/L (73-393) Glucose (Fingerstick) 102 mg/dL (70-99) Test 12/11/16 07:56 12/11/16 11:22 12/11/16 12:26 12/11/16 16:19 Glucose (Fingerstick) 85 mg/dL (70-99) 69 mg/dL (70-99) 70 mg/dL (70-99) 82 mg/dL (70-99) Laboratory Tests Test 12/11/16 05:00 12/11/16 07:56 12/11/16 11:22 12/11/16 12:26 White Blood Count 9.6 x10^3/uL (4.0-11.0) Red Blood Count 3.18 x10^6/uL (3.50-5.40) Hemoglobin 9.2 g/dL (12.0-15.5) Hematocrit 28.7 % (36.0-47.0) Mean Corpuscular Volume 90 fL (79-100) Mean Corpuscular Hemoglobin 29 pg (25-35) Mean Corpuscular Hemoglobin Concent 32 g/dL (31-37) Red Cell Distribution Width 16.7 % (11.5-14.5) Platelet Count 154 x10^3/uL (140-400) Neutrophils (%) (Auto) 61 % (31-73) Lymphocytes (%) (Auto) 28 % (24-48) Monocytes (%) (Auto) 8 % (0-9) Eosinophils (%) (Auto) 2 % (0-3) Basophils (%) (Auto) 0 % (0-3) Neutrophils # (Auto) 5.9 x10^3uL (1.8-7.7) Lymphocytes # (Auto) 2.7 x10^3/uL (1.0-4.8) Monocytes # (Auto) 0.8 x10^3/uL (0.0-1.1) Eosinophils # (Auto) 0.2 x10^3/uL (0.0-0.7) Basophils # (Auto) 0.0 x10^3/uL (0.0-0.2) Sodium Level 144 mmol/L (136-145) Potassium Level 4.6 mmol/L (3.5-5.1) Chloride Level 110 mmol/L (98-107) Carbon Dioxide Level 27 mmol/L (21-32) Anion Gap 7 (6-14) Blood Urea Nitrogen 60 mg/dL (7-20) Creatinine 3.2 mg/dL (0.6-1.0) Estimated GFR (Cockcroft-Gault) 17.2 Glucose Level 86 mg/dL (70-99) Calcium Level 8.4 mg/dL (8.5-10.1) Glucose (Fingerstick) 85 mg/dL (70-99) 69 mg/dL (70-99) 70 mg/dL (70-99) Test 12/11/16 16:19 Glucose (Fingerstick) 82 mg/dL (70-99) Medications Current Medications Fentanyl Citrate (Fentanyl 2ml Vial) 50 mcg PRN Q15MIN PRN IV PAIN GREATER THAN 3/10 Last administered on 12/10/16 00:55; Start 12/10/16 at 01:00; Stop 12/11/16 at 00:59; Status DC Ondansetron HCl (Zofran) 4 mg 1X ONCE IV Last administered on 12/10/16 00:55 ; Start 12/10/16 at 01:00; Stop 12/10/16 at 01:01; Status DC Sodium Chloride 500 ml @ 500 mls/hr 1X ONCE IV Last administered on 00:55; Start 12/10/16 at 01:00; Stop 12/10/16 at 01:59; Status DC Ondansetron HCl (Zofran) 4 mg PRN Q8HRS PRN IV NAUSEA/VOMITING Last administered on 12/10/16 09:28; Start 12/10/16 at 03:15; Stop 12/11/16 at 03 :14; Status DC Fentanyl Citrate (Fentanyl 2ml Vial) 50 mcg PRN Q2HR PRN IV PAIN Last administered on 12/10/16 09:28; Start 12/10/16 at 03:15; Stop 12/11/16 at 03 :14; Status DC Sodium Chloride 1,000 ml @ 125 mls/hr Q8H IV ; Start 12/10/16 at 03:15; Stop 12/10/16 at 12:00; Status DC Acetaminophen (Tylenol) 650 mg PRN Q4HRS PRN PO FEVER; Start 12/10/16 at 03:15 ; Stop 12/11/16 at 03:14; Status DC Iohexol (Omnipaque 240 Mg/ml) 50 ml 1X ONCE PO ; Start 12/10/16 at 11:30; Stop 12/10/16 at 11:31; Status DC Info (Do NOT chart on this entry -- for MONITORING) 1 each PRN DAILY PRN MC SEE COMMENTS; Start 12/10/16 at 11:15; Stop 12/12/16 at 11:14 Sodium Chloride 1,000 ml @ 75 mls/hr 1X ONCE IV Last administered on 13:25; Start 12/10/16 at 12:00; Stop 12/11/16 at 01:19; Status DC Allopurinol (Zyloprim) 100 mg DAILY PO Last administered on 12/11/16 14:21; Start 12/10/16 at 13:00 Vitamin D (Vitamin D3) 1,000 unit DAILY PO Last administered on 12/11/16 14: 21; Start 12/10/16 at 13:00 Clonidine HCl (Catapres Tts-3) 1 patch WEEKLY TD Last administered on 13:32; Start 12/10/16 at 13:00 Ferrous Sulfate (Feosol) 325 mg DAILYWBKFT PO Last administered on 12/11/16 14:21; Start 12/10/16 at 13:00 Furosemide (Lasix) 40 mg [id number] PO Last administered on 12/11/16 14:21; Start 12/10/16 at 16:00 Albuterol Sulfate (Ventolin Neb Soln) 2.5 mg PRN QID PRN NEB SOA; Start at 12:15 Losartan Potassium (Cozaar) 50 mg DAILY PO Last administered on 12/11/16 14: 22; Start 12/10/16 at 13:00 Info (Do NOT chart on this placeholder) 1 each 1X ONCE MC ; Start 12/11/16 at 10:00; Stop 12/11/16 at 10:01; Status UNV Influenza Virus Vaccine Quadrival (Fluarix Quad [id number] Syringe) 0.5 ml ONCE ONCE VAX IM ; Start 12/12/16 at 09:00; Stop 12/12/16 at 09:01 Pneumococcal Polyvalent Vaccine (Pneumovax 23) 0.5 ml ONCE ONCE VAX IM ; Start 12/12/16 at 09:00; Stop 12/12/16 at 09:01; Status UNV Pneumococcal Polyvalent Vaccine (Pneumovax 23) 0.5 ml ONCE ONCE VAX IM ; Start 12/11/16 at 11:15; Stop 12/11/16 at 11:16; Status DC Active Scripts Active Vitamin D (Cholecalciferol (Vitamin D3)) 1,000 Unit Tablet 1,000 Unit PO DAILY Clonidine Tts-3 (Clonidine) 1 Each Patch.tdwk 1 Patch TD WEEKLY Vitamin D2 (Ergocalciferol (Vitamin D2)) 50,000 Unit Capsule 50,000 Unit PO WEEKLY Ferrous Sulfate 325 Mg Tablet 325 Mg PO DAILYWBKFT Furosemide 40 Mg Tablet 40 Mg PO BID94 [place] 5-325 Tablet (Acetaminophen/Hydrocodone Bitart) 1 Each Tablet 1 Tab PO PRN Q6HRS PRN Reported Diovan Hct 80-12.5 Mg Tablet (Valsartan/Hydrochlorothiazide) 1 Each Tablet 1 Tab PO DAILY Potassium Chloride 10 Meq Capsule.er 10 Meq PO DAILY Allopurinol 300 Mg Tablet 1 Tab PO DAILY Proair Hfa Inhaler (Albuterol Sulfate) 8.5 Gm Hfa.aer.ad 2 Puff INH QID PRN Vitals/I & O Vital Sign - Last 24 Hours 12/10/16 12/10/16 12/10/16 12/11/16 19:30 20:00 23:35 03:35 Temp 98.4 98.4 98.6 98.4 98.4 98.6 Pulse 89 87 83 Resp 18 B/P (MAP) 111/44 (66) 146/56 (86) 127/53 (77) Pulse Ox 95 96 96 O2 Delivery Room Air Room Air Room Air Room Air 12/11/16 12/11/16 12/11/16 12/11/16 07:00 08:00 11:08 14:22 Temp 98.2 98.6 98.2 98.6 Pulse 81 87 87 Resp 18 18 B/P (MAP) 124/59 (80) 124/52 (76) 124/52 Pulse Ox 91 93 O2 Delivery Room Air Room Air Room Air 12/11/16 14:43 Temp 98.2 98.2 Pulse 89 Resp 18 B/P (MAP) 185/76 (112) Pulse Ox 94 O2 Delivery Room Air KHOI ZAMAN MD Dec 11, 2016 17:17
[2016-12-11 19:35] VITALS: BP 145/61
[2016-12-11 23:45] VITALS: BP 142/63
[2016-12-12 03:45] VITALS: BP 133/51
[2016-12-12 07:00] VITALS: BP 143/62
[2016-12-12] MEDS ORDERED: PNEUMOC CONJ VACC 23-VALENT 0.5 ML VIAL. VAX IM ONE (09:00)
[2016-12-12] MEDS ORDERED: FLU VACC QS2017-18 (36MOS+)/PF 0.5 ML SYRINGE. VAX IM ONE (09:00)
[2016-12-12] MEDS: LOSARTAN POTASSIUM 50 MG TABLET. PO SCH (09:22)
[2016-12-12] MEDS: CHOLECALCIFEROL (VITAMIN D3) 1,000 UNIT TABLET PO SCH (09:22)
[2016-12-12] MEDS: FERROUS SULFATE 325 MG TABLET. PO SCH (09:22)
[2016-12-12] MEDS: FUROSEMIDE 40 MG TABLET. PO SCH ×2 (09:22→16:00)
[2016-12-12] MEDS: ALLOPURINOL 100 MG TABLET. PO SCH (09:22)
[2016-12-12 11:00] VITALS: BP 155/76
[2016-12-12 15:01] VITALS: BP 144/63
--- NOTE | 2016-12-12 16:44 | PDOC ---
PROGRESS NOTES Chief Complaint Chief Complaint Abd pain ASSESSMENT AND PLAN: 1. Pancreatitis: clinically improved. lipase back to nl. advance diet as tolerated 2. LARGE ventral hernia: containing transverse colon and small bowel. surg consult pending 3. Pain control: PO/IV available 4. DM2: very well controlled. 5. CKD3-4: at baseline. monitor closely History of Present Illness History of Present Illness feels ok today. min abd pain. no diarrhea. Vitals Vitals Vital Signs Date Time Temp Pulse Resp B/P (MAP) Pulse Ox O2 Delivery O2 Flow Rate FiO2 12/12/16 15:01 98.0 85 18 144/63 (90) 99 Room Air 98.0 12/12/16 11:54 2.0 Physical Exam General: Alert, Oriented X3, Cooperative, No acute distress Heart: Regular rate Lungs: Clear Abdomen: Normal bowel sounds, No tenderness Extremities: No edema Skin: No rashes Labs LABS Laboratory Tests Test 12/11/16 20:42 12/12/16 07:56 12/12/16 10:48 12/12/16 16:09 Glucose (Fingerstick) 88 mg/dL (70-99) 82 mg/dL (70-99) 82 mg/dL (70-99) 112 mg/dL (70-99) KHOI ZAMAN MD Dec 12, 2016 16:44
[2016-12-12 19:33] VITALS: BP 124/58
[2016-12-12 22:15] VITALS: BP 135/57
[2016-12-13 02:59] VITALS: BP 145/70
[2016-12-13 05:40] LABS: BASO % 0 % (0-3); EOS % 2 % (0-3); HEMATOCRIT 26.3 % (36.0-47.0); HEMOGLOBIN 8.5 g/dL (12.0-15.5); LYMPH # 2.5 x10^3/uL (1.0-4.8); LYMPH % 33 % (24-48); MEAN CORPUSCULAR HEMOGLOBIN 29 pg (25-35); MEAN CORPUSCULAR HGB CONC 32 g/dL (31-37); MEAN CORPUSCULAR VOLUME 89 fL (79-100); MONO % 9 % (0-9); NEUT % 56 % (31-73); PLATELET COUNT 146 x10^3/uL (140-400); RED BLOOD COUNT 2.95 x10^6/uL (3.50-5.40); RED CELL DISTRIBUTION WIDTH 16.3 % (11.5-14.5); WHITE BLOOD COUNT 7.8 x10^3/uL (4.0-11.0)
[2016-12-13 07:00] VITALS: BP 117/56
[2016-12-13 08:01] LABS: ALBUMIN 2.2 g/dL (3.4-5.0); ALBUMIN/GLOBULIN RATIO 0.6 (1.0-1.7); CALCIUM 8.5 mg/dL (8.5-10.1); CREATININE 3.3 mg/dL (0.6-1.0); GFR 16.6; POTASSIUM 4.2 mmol/L (3.5-5.1); TOTAL BILIRUBIN 0.3 mg/dL (0.2-1.0); TOTAL PROTEIN 6.2 g/dL (6.4-8.2)
[2016-12-13] MEDS: ALLOPURINOL 100 MG TABLET. PO SCH (08:42)
[2016-12-13] MEDS: FUROSEMIDE 40 MG TABLET. PO SCH ×2 (08:43→16:00)
[2016-12-13] MEDS: LOSARTAN POTASSIUM 50 MG TABLET. PO SCH (08:43)
[2016-12-13] MEDS: FERROUS SULFATE 325 MG TABLET. PO SCH (08:43)
[2016-12-13] MEDS: CHOLECALCIFEROL (VITAMIN D3) 1,000 UNIT TABLET PO SCH (08:43)
--- NOTE | 2016-12-13 10:50 | PDOC ---
PROGRESS NOTES Subjective Subjective pt admitted for abdominal pain, has large ventral hernia Objective Objective Vital Signs Date Time Temp Pulse Resp B/P (MAP) Pulse Ox O2 Delivery O2 Flow Rate FiO2 12/13/16 08:43 64 117/56 12/13/16 08:05 Room Air 12/13/16 07:00 97.7 18 100 2.0 97.7 Assessment Assessment Problems Medical Problems: (1) Chronic kidney disease, stage IV (severe) Status: Acute (2) Morbid obesity Status: Acute (3) Nausea and vomiting Status: Acute (4) Pancreatitis, acute Status: Acute (5) Type 2 diabetes mellitus Status: Acute Plan Plan of Care Ms Valdez is patient of Dr Cardnoa who has operated on her and seen her earlier in the year for similar problem; defer to him for future managment; will sign off Comment Review of Relevant I have reviewed the following items brent (where applicable) has been applied. Labs Laboratory Tests Test 12/11/16 11:22 12/11/16 12:26 12/11/16 16:19 12/11/16 20:42 Glucose (Fingerstick) 69 mg/dL (70-99) 70 mg/dL (70-99) 82 mg/dL (70-99) 88 mg/dL (70-99) Test 12/12/16 07:56 12/12/16 10:48 12/12/16 16:09 12/12/16 21:12 Glucose (Fingerstick) 82 mg/dL (70-99) 82 mg/dL (70-99) 112 mg/dL (70-99) 108 mg/dL (70-99) Test 12/13/16 05:00 12/13/16 07:32 White Blood Count 7.8 x10^3/uL (4.0-11.0) Red Blood Count 2.95 x10^6/uL (3.50-5.40) Hemoglobin 8.5 g/dL (12.0-15.5) Hematocrit 26.3 % (36.0-47.0) Mean Corpuscular Volume 89 fL (79-100) Mean Corpuscular Hemoglobin 29 pg (25-35) Mean Corpuscular Hemoglobin Concent 32 g/dL (31-37) Red Cell Distribution Width 16.3 % (11.5-14.5) Platelet Count 146 x10^3/uL (140-400) Neutrophils (%) (Auto) 56 % (31-73) Lymphocytes (%) (Auto) 33 % (24-48) Monocytes (%) (Auto) 9 % (0-9) Eosinophils (%) (Auto) 2 % (0-3) Basophils (%) (Auto) 0 % (0-3) Neutrophils # (Auto) 4.3 x10^3uL (1.8-7.7) Lymphocytes # (Auto) 2.5 x10^3/uL (1.0-4.8) Monocytes # (Auto) 0.7 x10^3/uL (0.0-1.1) Eosinophils # (Auto) 0.2 x10^3/uL (0.0-0.7) Basophils # (Auto) 0.0 x10^3/uL (0.0-0.2) Sodium Level 144 mmol/L (136-145) Potassium Level 4.2 mmol/L (3.5-5.1) Chloride Level 108 mmol/L (98-107) Carbon Dioxide Level 27 mmol/L (21-32) Anion Gap 9 (6-14) Blood Urea Nitrogen 59 mg/dL (7-20) Creatinine 3.3 mg/dL (0.6-1.0) Estimated GFR (Cockcroft-Gault) 16.6 BUN/Creatinine Ratio 18 (6-20) Glucose Level 78 mg/dL (70-99) Calcium Level 8.5 mg/dL (8.5-10.1) Total Bilirubin 0.3 mg/dL (0.2-1.0) Aspartate Amino Transf (AST/SGOT) 20 U/L (15-37) Alanine Aminotransferase (ALT/SGPT) 14 U/L (14-59) Alkaline Phosphatase 72 U/L (46-116) Total Protein 6.2 g/dL (6.4-8.2) Albumin 2.2 g/dL (3.4-5.0) Albumin/Globulin Ratio 0.6 (1.0-1.7) Glucose (Fingerstick) 79 mg/dL (70-99) Laboratory Tests Test 12/12/16 16:09 12/12/16 21:12 12/13/16 05:00 12/13/16 07:32 Glucose (Fingerstick) 112 mg/dL (70-99) 108 mg/dL (70-99) 79 mg/dL (70-99) White Blood Count 7.8 x10^3/uL (4.0-11.0) Red Blood Count 2.95 x10^6/uL (3.50-5.40) Hemoglobin 8.5 g/dL (12.0-15.5) Hematocrit 26.3 % (36.0-47.0) Mean Corpuscular Volume 89 fL (79-100) Mean Corpuscular Hemoglobin 29 pg (25-35) Mean Corpuscular Hemoglobin Concent 32 g/dL (31-37) Red Cell Distribution Width 16.3 % (11.5-14.5) Platelet Count 146 x10^3/uL (140-400) Neutrophils (%) (Auto) 56 % (31-73) Lymphocytes (%) (Auto) 33 % (24-48) Monocytes (%) (Auto) 9 % (0-9) Eosinophils (%) (Auto) 2 % (0-3) Basophils (%) (Auto) 0 % (0-3) Neutrophils # (Auto) 4.3 x10^3uL (1.8-7.7) Lymphocytes # (Auto) 2.5 x10^3/uL (1.0-4.8) Monocytes # (Auto) 0.7 x10^3/uL (0.0-1.1) Eosinophils # (Auto) 0.2 x10^3/uL (0.0-0.7) Basophils # (Auto) 0.0 x10^3/uL (0.0-0.2) Sodium Level 144 mmol/L (136-145) Potassium Level 4.2 mmol/L (3.5-5.1) Chloride Level 108 mmol/L (98-107) Carbon Dioxide Level 27 mmol/L (21-32) Anion Gap 9 (6-14) Blood Urea Nitrogen 59 mg/dL (7-20) Creatinine 3.3 mg/dL (0.6-1.0) Estimated GFR (Cockcroft-Gault) 16.6 BUN/Creatinine Ratio 18 (6-20) Glucose Level 78 mg/dL (70-99) Calcium Level 8.5 mg/dL (8.5-10.1) Total Bilirubin 0.3 mg/dL (0.2-1.0) Aspartate Amino Transf (AST/SGOT) 20 U/L (15-37) Alanine Aminotransferase (ALT/SGPT) 14 U/L (14-59) Alkaline Phosphatase 72 U/L (46-116) Total Protein 6.2 g/dL (6.4-8.2) Albumin 2.2 g/dL (3.4-5.0) Albumin/Globulin Ratio 0.6 (1.0-1.7) Microbiology 12/10/16 Urine Culture - Final, Complete 12/10/16 Urine Culture Result 1 (JUANA) - Final, Complete Medications Current Medications Fentanyl Citrate (Fentanyl 2ml Vial) 50 mcg PRN Q15MIN PRN IV PAIN GREATER THAN 3/10 Last administered on 12/10/16 00:55; Start 12/10/16 at 01:00; Stop 12/11/16 at 00:59; Status DC Ondansetron HCl (Zofran) 4 mg 1X ONCE IV Last administered on 12/10/16 00:55 ; Start 12/10/16 at 01:00; Stop 12/10/16 at 01:01; Status DC Sodium Chloride 500 ml @ 500 mls/hr 1X ONCE IV Last administered on 00:55; Start 12/10/16 at 01:00; Stop 12/10/16 at 01:59; Status DC Ondansetron HCl (Zofran) 4 mg PRN Q8HRS PRN IV NAUSEA/VOMITING Last administered on 12/10/16 09:28; Start 12/10/16 at 03:15; Stop 12/11/16 at 03 :14; Status DC Fentanyl Citrate (Fentanyl 2ml Vial) 50 mcg PRN Q2HR PRN IV PAIN Last administered on 12/10/16 09:28; Start 12/10/16 at 03:15; Stop 12/11/16 at 03 :14; Status DC Sodium Chloride 1,000 ml @ 125 mls/hr Q8H IV ; Start 12/10/16 at 03:15; Stop 12/10/16 at 12:00; Status DC Acetaminophen (Tylenol) 650 mg PRN Q4HRS PRN PO FEVER; Start 12/10/16 at 03:15 ; Stop 12/11/16 at 03:14; Status DC Iohexol (Omnipaque 240 Mg/ml) 50 ml 1X ONCE PO ; Start 12/10/16 at 11:30; Stop 12/10/16 at 11:31; Status DC Info (Do NOT chart on this entry -- for MONITORING) 1 each PRN DAILY PRN MC SEE COMMENTS; Start 12/10/16 at 11:15; Stop 12/12/16 at 11:14; Status DC Sodium Chloride 1,000 ml @ 75 mls/hr 1X ONCE IV Last administered on 13:25; Start 12/10/16 at 12:00; Stop 12/11/16 at 01:19; Status DC Allopurinol (Zyloprim) 100 mg DAILY PO Last administered on 12/13/16 08:42; Start 12/10/16 at 13:00 Vitamin D (Vitamin D3) 1,000 unit DAILY PO Last administered on 12/13/16 08: 43; Start 12/10/16 at 13:00 Clonidine HCl (Catapres Tts-3) 1 patch WEEKLY TD Last administered on 13:32; Start 12/10/16 at 13:00 Ferrous Sulfate (Feosol) 325 mg DAILYWBKFT PO Last administered on 12/13/16 08:43; Start 12/10/16 at 13:00 Furosemide (Lasix) 40 mg BID94 PO Last administered on 12/13/16 08:43; Start 12/10/16 at 16:00 Albuterol Sulfate (Ventolin Neb Soln) 2.5 mg PRN QID PRN NEB SOA; Start at 12:15 Losartan Potassium (Cozaar) 50 mg DAILY PO Last administered on 12/13/16 08: 43; Start 12/10/16 at 13:00 Info (Do NOT chart on this placeholder) 1 each 1X ONCE MC ; Start 12/11/16 at 10:00; Stop 12/11/16 at 10:01; Status UNV Influenza Virus Vaccine Quadrival (Fluarix Quad [id number] Syringe) 0.5 ml ONCE ONCE VAX IM ; Start 12/12/16 at 09:00; Stop 12/12/16 at 09:01; Status DC Pneumococcal Polyvalent Vaccine (Pneumovax 23) 0.5 ml ONCE ONCE VAX IM ; Start 12/12/16 at 09:00; Stop 12/12/16 at 09:01; Status UNV Pneumococcal Polyvalent Vaccine (Pneumovax 23) 0.5 ml ONCE ONCE VAX IM ; Start 12/11/16 at 11:15; Stop 12/11/16 at 11:16; Status DC Active Scripts Active Vitamin D (Cholecalciferol (Vitamin D3)) 1,000 Unit Tablet 1,000 Unit PO DAILY Clonidine Tts-3 (Clonidine) 1 Each Patch.tdwk 1 Patch TD WEEKLY Vitamin D2 (Ergocalciferol (Vitamin D2)) 50,000 Unit Capsule 50,000 Unit PO WEEKLY Ferrous Sulfate 325 Mg Tablet 325 Mg PO DAILYWBKFT Furosemide 40 Mg Tablet 40 Mg PO BID94 [place] 5-325 Tablet (Acetaminophen/Hydrocodone Bitart) 1 Each Tablet 1 Tab PO PRN Q6HRS PRN Reported Diovan Hct 80-12.5 Mg Tablet (Valsartan/Hydrochlorothiazide) 1 Each Tablet 1 Tab PO DAILY Potassium Chloride 10 Meq Capsule.er 10 Meq PO DAILY Allopurinol 300 Mg Tablet 1 Tab PO DAILY Proair Hfa Inhaler (Albuterol Sulfate) 8.5 Gm Hfa.aer.ad 2 Puff INH QID PRN Vitals/I & O Vital Sign - Last 24 Hours 12/12/16 12/12/16 12/12/16 12/12/16 11:00 11:54 15:01 19:33 Temp 98.0 98.0 98.3 98.0 98.0 98.3 Pulse 79 85 67 Resp 18 18 18 B/P (MAP) 155/76 (102) 144/63 (90) 124/58 (80) Pulse Ox 99 100 99 99 O2 Delivery Room Air Nasal Cannula Room Air Nasal Cannula O2 Flow Rate 2.0 2.0 12/12/16 12/12/16 12/13/16 12/13/16 20:00 22:15 02:59 07:00 Temp 97.4 97.8 97.7 97.4 97.8 97.7 Pulse 68 69 64 Resp 20 20 18 B/P (MAP) 135/57 (83) 145/70 (95) 117/56 (76) Pulse Ox 100 100 100 O2 Delivery Room Air Nasal Cannula Nasal Cannula Nasal Cannula O2 Flow Rate 2.0 2.0 2.0 12/13/16 12/13/16 08:05 08:43 Pulse 64 B/P (MAP) 117/56 O2 Delivery Room Air TREMAINE LANE MD Dec 13, 2016 10:50
[2016-12-13 11:00] VITALS: BP 98/49
[2016-12-13] MEDS ORDERED: ALLO100T PO (11:26)
--- NOTE | 2016-12-14 21:20 | DS ---
DATE OF DISCHARGE: 12/13/2016 CHIEF COMPLAINT: Abdominal pain. HOSPITAL COURSE: The patient is a 71-year-old morbidly obese -[place] woman who presented with abdominal pain. In her CT, she was found with a very large ventral hernia and on labs with elevated lipases. She was therefore admitted for acute pancreatitis. Initially, kept n.p.o. and started stepwise as lipase levels improved and later normalized. She tolerated p.o. without any difficulties. Blood sugars were under good control and her creatinine remained stable. For a large ventral hernia, Dr. Harper was consulted; he related that Dr. Villavicencio had seen her in the past for this and surgery was deferred. The patient should follow up with Dr. Villavicencio on an outpatient basis. DISCHARGE PHYSICAL EXAMINATION: VITAL SIGNS: Blood pressure of 117/56, heart rate of 64 and respiratory rate at 18. She is afebrile. GENERAL: This is a morbidly obese -[place] woman, alert and oriented, no acute distress. LUNGS: Clear. HEART: Regular rate and rhythm. ABDOMEN: Has positive bowel sounds. Soft and nontender. EXTREMITIES: Show no edema. DISCHARGE DIAGNOSES: Pancreatitis and large ventral hernia. DISCHARGE DISPOSITION: To home. DISCHARGE CONDITION: Improved. DISCHARGE MEDICATIONS: Please refer to MAR. DISCHARGE INSTRUCTIONS: The patient will follow up with her PCP in 1-2 weeks. KHOI ZAMAN MD DR: UR/nts JOB#: [id number] / [id number] CURTIS Cordoba MD MTDD
== END 2016-12-13 18:29 | disposition home or self-care (01) | DRG 439 ==
LOC: ER 00:19 → 2 SOUTH 02:20
PROVIDERS: ADMIT Internal Medicine; ATTEND Internal Medicine
DX: K85.90 Acute pancreatitis without necrosis or infection, unspecified (principal); N18.4 Chronic kidney disease, stage 4 (severe); E11.22 Type 2 diabetes mellitus with diabetic chronic kidney disease; I48.91 Unspecified atrial fibrillation; E66.01 Morbid (severe) obesity due to excess calories; Z68.42 Body mass index [BMI] 45.0-49.9, adult; J44.9 Chronic obstructive pulmonary disease, unspecified; K76.0 Fatty (change of) liver, not elsewhere classified; K43.9 Ventral hernia without obstruction or gangrene; I12.9 Hypertensive chronic kidney disease with stage 1 through stage 4 chronic kidney disease, or unspecified chronic kidney disease; I25.10 Atherosclerotic heart disease of native coronary artery without angina pectoris; M10.9 Gout, unspecified; K80.20 Calculus of gallbladder without cholecystitis without obstruction; M19.90 Unspecified osteoarthritis, unspecified site; Z82.49 Family history of ischemic heart disease and other diseases of the circulatory system; Z85.42 Personal history of malignant neoplasm of other parts of uterus; Z87.891 Personal history of nicotine dependence; Z90.710 Acquired absence of both cervix and uterus; Z98.84 Bariatric surgery status; Z87.440 Personal history of urinary (tract) infections; Z86.73 Personal history of transient ischemic attack (TIA), and cerebral infarction without residual deficits; Z23 Encounter for immunization
CPT/HCPCS: 36415; 74022; 74176; 76705; 80048; 80053; 81001; 82962; 83605; 83690; 85025; 87086; 90686; 90732; 93005; 94250; 94760; 96361; 96374; 96375; J2405; J3010; J7030; J7040; 97530; 97535; 99285-25

== ENCOUNTER 2017-11-29 12:44 | Emergency (ER) | payer OTHER, MEDICAID ==
[~2017-11-29] VITALS: Ht 167.6 cm; Wt 131.5 kg
[~2017-11-29 12:44] MED LIST changes: -FERR-26 PO; +FERR325T14 PO; -LOSA100T6 PO; +LOSA100T7 PO; +POTA10TA12 PO
[2017-11-29] MEDS ORDERED: cloNIDine HCL 0.1 MG TABLET PO ONE (13:30)
[2017-11-29] MEDS ORDERED: HYDROcodone/APAP 5/325MG 1 TAB TABLET PO ONE (13:30)
[2017-11-29] MEDS ORDERED: amLODIPine BESYLATE 5 MG TABLET PO ONE (13:30)
--- NOTE | 2017-11-29 14:19 | RAD ---
3 views left knee 11/29/2017 1:30 PM Indication: LEFT KNEE PAIN AFTER FALL X TODAY Comparison: None Findings: There is no evidence of acute fracture or dislocation. There is severe tricompartmental degenerative change including severe loss of joint space in both the medial lateral compartments. Loss of patellofemoral joint space is suspected. Tricompartmental osteophytosis and subchondral sclerosis is seen. No joint effusion or other acute soft tissue abnormality is seen. IMPRESSION: Severe tricompartmental degenerative change without evidence of acute osseous abnormality Electronically signed by: Jb Leon MD (11/29/2017 2:16 PM) [facility]
--- NOTE | 2017-11-29 14:21 | RAD ---
3 views right shoulder 11/29/2017 1:30 PM Indication: RIGHT SHOULDER PAIN AFTER FALL X TODAY Comparison: None Findings: No evidence of acute fracture or dislocation is seen. Articular surfaces. Uninterrupted. Hypertrophic degenerative changes are seen at the acromioclavicular joint. Loss of subacromial space is seen. No acute soft tissue changes are identified radiographically. IMPRESSION: 1.Degenerative changes as described without evidence of acute osseous abnormality. 2. Hypertrophic changes of the acromioclavicular joint with subacromial narrowing. There is concern for rotator cuff injury, routine follow-up MRI exam could be performed. Electronically signed by: Jb Leon MD (11/29/2017 2:18 PM) [facility]
--- NOTE | 2017-11-29 14:25 | PHYS DOC ---
Past Medical History Past Medical History: Asthma, COPD, Diabetes-Type II, Hypertension, Pancreatitis, UTI Additional Past Medical Histor: Gout Past Surgical History: Gastric Bypass, Hysterectomy, Other Additional Past Surgical Histo: Gastric bypass, hernia Alcohol Use: None Drug Use: None Adult General Chief Complaint Chief Complaint: MECHANICAL FALL HPI HPI Patient is a 72 year old female presents with mechanical fall. She was trying to get into her wheelchair she did not know it was unlocked she fell to the ground hit her left knee and right shoulder. She takes blood pressure medication she has no chest pain no shortness of breath no head injury no neck pain no abdominal pain just these other injuries that I mentioned pain is dull mild worse with palpation Review of Systems Review of Systems Constitutional: Denies fever or chills [] Eyes: Denies change in visual acuity, redness, or eye pain [] HENT: Denies nasal congestion or sore throat [] Respiratory: Denies cough or shortness of breath [] Cardiovascular: No additional information not addressed in HPI [] Neurologic: Denies headache, focal weakness or sensory changes [] All other systems were reviewed and found to be within normal limits, except as documented in this note. Current Medications Current Medications Current Medications Medications (Trade) Dose Ordered Sig/Helen Start Time Stop Time Status Last Admin Dose Admin Acetaminophen/ Hydrocodone Bitart (Lortab 5/325) 2 tab 1X ONCE 11/29/17 13:30 11/29/17 13:36 DC 11/29/17 13:46 2 TAB Amlodipine Besylate (Norvasc) 10 mg 1X ONCE 11/29/17 13:30 11/29/17 13:36 DC 11/29/17 13:50 10 MG Clonidine HCl (Catapres) 0.2 mg 1X ONCE 11/29/17 13:30 11/29/17 13:36 DC 11/29/17 13:47 0.2 MG Hydralazine HCl (Apresoline) 50 mg 1X STAT 11/29/17 14:37 11/29/17 14:39 DC 11/29/17 14:44 50 MG Allergies Allergies Allergies Coded Allergies Type Severity Reaction Last Updated Verified No Known Drug Allergies 02/13/14 No Physical Exam Physical Exam Constitutional: Well developed, well nourished, no acute distress, non-toxic appearance. [] HENT: Normocephalic, atraumatic, bilateral external ears normal, oropharynx moist, no oral exudates, nose normal. [] Eyes: PERRLA, EOMI, conjunctiva normal, no discharge. [] Neck: Normal range of motion, no tenderness, supple, no stridor. [] Pulmonary: Normal respiratory effort no increased work of breathing no obvious chest wall trauma n []no chest wall tenderness noted Abdomen: Bowel sounds normal, soft, no tenderness, no masses, no pulsatile masses. [] Skin: Warm, dry, no erythema, no rash. [] Back: No tenderness, no CVA tenderness. [] Extremities: There is tenderness noted to the right upper humerus area no trauma seen. Also mild tenderness over the left tibial plateau but no obvious deformity was identified. Pulses are intact. Neurologic: Alert and oriented X 3, normal motor function, normal sensory function, no focal deficits noted. [] Psychologic: Affect normal, judgement normal, mood normal. [] Current Patient Data Vital Signs Vital Signs Date Time Temp Pulse Resp B/P (MAP) Pulse Ox O2 Delivery O2 Flow Rate FiO2 11/29/17 14:44 88 202/93 11/29/17 12:58 97.7 18 96 Room Air 97.7 EKG EKG [] Radiology/Procedures Radiology/Procedures [] Impressions: IMPRESSION: Severe tricompartmental degenerative change without evidence of acute osseous abnormality Electronically signed by: Jb Bentley MD (11/29/2017 2:16 PM) [facility] DICTATED and SIGNED BY: JB BENTLEY MD DATE: 11/29/17 1415 Course & Med Decision Making Course & Med Decision Making Pertinent Labs and Imaging studies reviewed. (See chart for details) Patient mechanical fall with shoulder and knee pain. Blood pressure was 240 systolic in triage she takes oral agents. She has no signs clinically of end organ damage no chest pain or shortness of breath or headache she is alert and very well-appearing overall. Patient was given clonidine and amlodipine with improvement in blood pressure x-rays were negative patient was reassured and advised on the importance of fall precautions at home.[] repeat bp 170's range. d/c home advsied bp f/u in one week. Dragon Disclaimer Dragon Disclaimer This electronic medical record was generated, in whole or in part, using a voice recognition dictation system. Departure Departure Impression: Primary Impression: Elevated blood pressure reading Additional Impression: Osteoarthritis Disposition: 01 HOME, SELF-CARE Condition: STABLE Referrals: CURTIS MARCELINO MD (PCP) Problem Qualifiers RAFFY WOLFF MD Nov 29, 2017 14:25
[2017-11-29 14:44] VITALS: BP 202/93
== END 2017-11-29 15:50 | disposition home or self-care (01) ==
LOC: ER 12:44
DX: M19.011 Primary osteoarthritis, right shoulder (principal); M17.12 Unilateral primary osteoarthritis, left knee; I10 Essential (primary) hypertension; S49.91XA Unspecified injury of right shoulder and upper arm, initial encounter; S89.92XA Unspecified injury of left lower leg, initial encounter; J44.9 Chronic obstructive pulmonary disease, unspecified; E11.9 Type 2 diabetes mellitus without complications; M10.9 Gout, unspecified; Z90.710 Acquired absence of both cervix and uterus; Z98.890 Other specified postprocedural states; Z98.84 Bariatric surgery status; W18.09XA Striking against other object with subsequent fall, initial encounter; Y93.89 Activity, other specified; Y92.89 Other specified places as the place of occurrence of the external cause; Y99.8 Other external cause status
CPT/HCPCS: 73030; 73562; 99284

== ENCOUNTER 2017-12-10 20:23 | Emergency (ER) | payer OTHER, MEDICARE ==
[~2017-12-10] VITALS: Ht 167.6 cm; Wt 131.5 kg
--- NOTE | 2017-12-10 21:00 | PHYS DOC ---
Past Medical History Past Medical History: Diabetes-Type II, Hypertension, [place] Additional Past Medical Histor: Gout Past Surgical History: Gastric Bypass, Hysterectomy, Other Additional Past Surgical Histo: Gastric bypass, hernia Alcohol Use: None Drug Use: None Adult General Chief Complaint Chief Complaint: MECHANICAL FALL HPI HPI Patient is a 72 year old female who presents with right knee pain after fall The patient was in the bathroom when she became incontinent of urine and slipped in her own urine. She landed on her right knee with injury. This occurred at about 7 PM tonight. She was unable to get off the floor and her daughter called 911. EMS brought to emergency department. She notes no other injury apart from right knee injury. Review of Systems Review of Systems Constitutional: Denies fever or chills Eyes: Denies change in visual acuity, redness, or eye pain HENT: Denies nasal congestion or sore throat Respiratory: Denies cough or shortness of breath Cardiovascular: Denies chest pain or palpitations GI: Denies abdominal pain, nausea, vomiting, bloody stools or diarrhea : Denies dysuria or hematuria Musculoskeletal: Denies back or neck pain. With right knee joint pain Integument: Denies rash or skin lesions Neurologic: Denies headache, focal weakness or sensory changes Endocrine: Denies polyuria or polydipsia All other systems were reviewed and found to be within normal limits, except as documented in this note. Current Medications Current Medications Current Medications Medications (Trade) Dose Ordered Sig/Helen Start Time Stop Time Status Last Admin Dose Admin Acetaminophen/ Hydrocodone Bitart (Lortab 5/325) 1 tab 1X ONCE 12/10/17 21:30 12/10/17 21:31 DC 12/10/17 22:36 1 TAB Allergies Allergies Allergies Coded Allergies Type Severity Reaction Last Updated Verified No Known Drug Allergies 02/13/14 No Physical Exam Physical Exam Constitutional: Well developed, well nourished, no acute distress, non-toxic appearance. Morbidly obese and hypertensive HENT: Normocephalic, atraumatic, bilateral external ears normal, oropharynx moist, no oral exudates, nose normal. Eyes: PERRLA, EOMI, conjunctiva normal, no discharge. Neck: Normal range of motion, no tenderness, supple, no stridor. Cardiovascular:Heart rate regular rhythm, no murmur Lungs & Thorax: Bilateral breath sounds clear to auscultation Abdomen: Bowel sounds normal, soft, no tenderness, no masses, no pulsatile masses. Skin: Warm, dry, no erythema, no rash. Back: No tenderness, no CVA tenderness. Extremities: with anterior knee tenderness, no swelling, ROM decreased secondary to pain, no calf tenderness, no cyanosis, no clubbing, no edema. Neurologic: Alert and oriented X 3, front attendant II-XII intact, normal motor function, normal sensory function, no focal deficits noted. Distal sensations intact to light touch and position sense. DP pulses 2+ equal and symmetric bilateral lower extremity Psychologic: Affect normal, judgement normal, mood normal. Current Patient Data Vital Signs Vital Signs Date Time Temp Pulse Resp B/P (MAP) Pulse Ox O2 Delivery O2 Flow Rate FiO2 12/11/17 00:04 68 16 98 12/10/17 22:36 Room Air 12/10/17 20:29 99.1 255/121 (165) 99.1 EKG EKG [] Radiology/Procedures Radiology/Procedures [facility] [address] [place] [address] IMAGING REPORT Signed PATIENT: NATASHA MARCELINO ACCOUNT: [id number] : 1945 LOCATION: ER AGE: 72 SEX: F EXAM STATUS: REG ER ORD. PHYSICIAN: RACHEL OCAMPO MD REASON: injury PROCEDURE: KNEE RIGHT 3V History: Mechanical fall today. Injury. Comparison: None. Findings: AP, lateral, and oblique views of the right knee. No acute fracture or dislocation is identified. No joint effusion is seen. Moderate tricompartment degeneration is present. Small quadriceps tendon insertional enthesophyte is present. Impression: 1. No acute osseous traumatic injury identified. 2. Tricompartment degeneration. Electronically signed by: Jairo Hammond MD (12/10/2017 9:37 PM) [facility] DICTATED and SIGNED BY: JAIRO HAMMOND MD DATE: 12/10/172135 Course & Med Decision Making Course & Med Decision Making Pertinent Labs and Imaging studies reviewed. (See chart for details) Emergency Department course Patient presents with knee injury and elevated blood pressure DDx- fracture, dislocation, sprain, arthritis 23:00 Patient was hypertensive in the ED improved after taking her scheduled home medications. BP at discharge was 180/80. Right knee x-rays showed arthritis, no fracture. Patient was placed in knee immobilizer with PCP and orthopedic follow- up. Yosion Disclaimer Dragon Disclaimer This electronic medical record was generated, in whole or in part, using a voice recognition dictation system. Departure Departure Impression: Primary Impression: Right knee sprain Additional Impressions: Contusion of right knee Arthritis of right knee Uncontrolled hypertension Disposition: HOME, SELF-CARE Condition: STABLE Referrals: CURTIS MARCELINO MD (PCP) Follow-up on Wednesday for further evaluation BEN PARIKH MD Follow-up on Wednesday for further evlauation Patient Instructions: Hypertension, Knee Immobilization, Knee Replacement, Preparing For Scripts Hydrocodone/Apap 5-325 (NORCO 5-325 TABLET) 1 Each Tablet 1 TAB PO PRN Q6HRS PRN for PAIN for 5 Days, #20 TAB 0 Refills Prov: RACHEL OCAMPO MD 12/10/17 Problem Qualifiers Primary Impression: Right knee sprain Encounter type: initial encounter Involved ligament of knee: unspecified ligament Qualified Codes: S83.91XA - Sprain of unspecified site of right knee , initial encounter Additional Impressions: Contusion of right knee Encounter type: initial encounter Qualified Codes: S80.01XA - Contusion of right knee, initial encounter RACHEL OCAMPO MD Dec 10, 2017 21:00
--- NOTE | 2017-12-10 21:41 | RAD ---
History: Mechanical fall today. Injury. Comparison: None. Findings: AP, lateral, and oblique views of the right knee. No acute fracture or dislocation is identified. No joint effusion is seen. Moderate tricompartment degeneration is present. Small quadriceps tendon insertional enthesophyte is present. Impression: 1. No acute osseous traumatic injury identified. 2. Tricompartment degeneration. Electronically signed by: Jairo Kennedy MD (12/10/2017 9:37 PM) [facility]
[2017-12-10] MEDS: HYDROcodone/APAP 5/325MG 1 TAB TABLET PO ONE (22:36)
[2017-12-10] MEDS ORDERED: HYDR-971 PO (23:22)
[2017-12-11 00:04] VITALS: BP 180/80
== END 2017-12-11 00:28 | disposition home or self-care (01) ==
LOC: ER 20:23
DX: S83.91XA Sprain of unspecified site of right knee, initial encounter (principal); M17.11 Unilateral primary osteoarthritis, right knee; I10 Essential (primary) hypertension; E11.9 Type 2 diabetes mellitus without complications; M10.9 Gout, unspecified; I25.2 Old myocardial infarction; Z90.710 Acquired absence of both cervix and uterus; Z98.890 Other specified postprocedural states; Z98.84 Bariatric surgery status; W01.0XXA Fall on same level from slipping, tripping and stumbling without subsequent striking against object, initial encounter; Y93.89 Activity, other specified; Y92.89 Other specified places as the place of occurrence of the external cause; Y99.8 Other external cause status
CPT/HCPCS: 29505; 73562; 99284-25